=== PATIENT | female | born 1965 | race Caucasian/White ===

== ENCOUNTER 2016-03-25 13:59 | Emergency (ER) | payer MEDICAID ==
--- NOTE | 2016-03-25 15:15 | ER Document Report ---
ED General - General Chief Complaint: Abdominal Pain Stated Complaint: ABDOMINAL PAIN Time seen by provider: 14:50 Mode of Arrival: Ambulatory Information source: Patient Notes: 50-year-old female complains about 2 week history of bilateral lower abdominal pain left greater than right associated with nausea and poor appetite. She denies fever, chills, cough worse than baseline, shortness of breath worse than baseline, diarrhea, constipation, dysuria, vaginal bleeding or discharge. She reports he's had rectal bleeding intermittently for the past year and is having some emesis is not worse than what she usually has. He denies hematemesis or melena. She denies chest pain, back pain, or syncope. She has chronic swelling the lower extremities from lymphedema which she says is not worse than normal. He reports chronically using oxygen 3-1/2-4 L at home for COPD, asthma , congestive heart failure and says her breathing symptoms are not worse than her baseline. Physical Exam: General: Alert, appears well. HEENT: Normocephalic. Atraumatic. PERRLA. Extraocular movements intact. Oropharynx clear. Neck: Supple. Non-tender. Respiratory: No respiratory distress. Clear and equal breath sounds bilaterally. Oxygen saturation varies from 83-88% on 4 L as a cannula patient reports is her baseline Cardiovascular: Tachycardic and irregular the M a nondisplaced Abdominal: Normal Inspection. Soft, mild left lower quadrant tenderness no guarding rebound rigidity or referred pain no distension. Patient has erythema over her pannus in the midline and left lower abdomen which seems to correspond the patient's complaint of pain Normal Bowel Sounds. Back: Non-tender. No deformity or step off. Extremities: Moves all four extremities. Upper extremities: Normal inspection. Non-tender. Normal color. Normal ROM. Normal temperature. Lower extremities have 4+ edema from thighs down. Patient has 2+ dorsalis pedis and Posterior tibial pulses Neurological: Speech clear mentation normal glass mechanic strength 5 out of 5 equal both upper extremities Psychological: Normal affect. Normal Mood. Skin: Warm. Dry. Normal color. TRAVEL OUTSIDE OF THE [place] IN LAST 30 DAYS: No - Related Data Allergies/Adverse Reactions: budesonide [From Pulmicort] Allergy (Unknown, Verified 03/25/16 14:13) amoxicillin trihydrate [From Augmentin] Allergy (Verified 03/25/16 14:13) brompheniramine maleate [From Dimetapp] Allergy (Verified 03/25/16 14:13) dextromethorphan HBr [From Dimetapp] Allergy (Verified 03/25/16 14:13) phenylpropanolamine HCl [From Dimetapp] Allergy (Verified 03/25/16 14:13) Potassium Clavulanate * [From Augmentin] Allergy (Verified 03/25/16 14:13) pseudoephedrine HCl [From Dimetapp] Allergy (Verified 03/25/16 14:13) tetracycline [Tetracycline] Allergy (Verified 03/25/16 14:13) epinephrine [From Primatene Mist] Adverse Reaction (Verified 03/25/16 14:13) Difficulty breathing Past Medical History - Social History Smoking Status: Never Smoker Chew tobacco use (# tins/day): No Frequency of alcohol use: None Drug Abuse: None Family History: Reviewed & Not Pertinent Patient has suicidal ideation: No Patient has homicidal ideation: No - Past Medical History Cardiac Medical History: Reports: Hx Atrial Fibrillation, Hx Coronary Artery Disease, Hx Hypercholesterolemia, Hx Hypertension Denies: Hx Heart Attack Pulmonary Medical History: Reports: Hx Asthma, Hx COPD Denies: Hx Bronchitis, Hx Pneumonia, Hx Tuberculosis Neurological Medical History: Reports: Hx Migraine. Denies: Hx Cerebrovascular Accident, Hx Seizures Renal/ Medical History: Denies: Hx Peritoneal Dialysis Musculoskeltal Medical History: Reports Hx Arthritis Psychiatric Medical History: Reports: Hx Depression Past Surgical History: Reports: Hx Section, Hx Gynecologic Surgery - Endometrial ablation. Denies: Hx Hysterectomy - Immunizations Immunizations up to date: Yes Hx Diphtheria, Pertussis, Tetanus Vaccination: No Hx Pneumococcal Vaccination: 10/15/12 Review of Systems - Review of Systems Constitutional: denies: Chills, Fever EENT: denies: Ear pain, Throat pain Cardiovascular: denies: Chest pain, Syncope Respiratory: Short of breath - At baseline. denies: Cough Gastrointestinal: See HPI Genitourinary: See HPI Female Genitourinary: See HPI Musculoskeletal: denies: Back pain Skin: denies: Rash Hematologic/Lymphatic: denies: Swollen glands Neurological/Psychological: denies: Weakness, Numbness Physical Exam - Vital signs Vitals: Resp Pulse Ox 18 90 L 03/25/16 14:47 03/25/16 14:47 Course - Re-evaluation Re-evalutation: 03/25/16 18:10 Reevaluation of patient shows her to again have minimal discomfort along her past but no findings on abdominal exam suggestive of intra-abdominal pathology. CT abdomen pelvis was also read as showing findings consistent with a August this. She has no fever and is nontoxic in appearance or believe can be safely treated as an outpatient. He'll be discharged clindamycin 03/25/16 18:13 Patient is noted to have a markedly elevated CO2 but a little believe that is direct marketing representative her her chronic hypercapnic respiratory failure. She is oxygenating well on her baseline nasal cannula here and is awake and alert and this does not warrant admission. - Vital Signs Vital signs: Temp Pulse Resp BP Pulse Ox 97.8 F 111 H 24 H 151/101 H 84 L 03/25/16 15:02 03/25/16 15:02 03/25/16 15:02 03/25/16 15:02 03/25/16 16:00 - Laboratory Result Diagrams: 03/25/16 15:15 03/25/16 15:38 Laboratory results interpreted by me: 03/25/16 03/25/16 15:15 15:38 WBC 11.5 H Hgb 9.8 L Hct 33.4 L MCV 75 L MCH 22.1 L MCHC 29.4 L RDW 18.4 H Seg Neutrophils % 84.6 H Lymphocytes % 7.1 L Absolute Neutrophils 9.7 H Chloride 88 L Carbon Dioxide 47 H* Creatine Kinase < 20 L Albumin 3.1 L Urinalysis results reviewed - Diagnostic Test Radiology reviewed: Image reviewed, Reports reviewed - EKG Interpretation by Me Additional EKG results interpreted by me: 03/25/16 18:09 EKG reviewed by myself shows atrial fibrillation ventricular 112 with no acute changes Discharge - Discharge Clinical Impression: Panniculitis Condition: Stable Disposition: HOME, SELF-CARE Additional Instructions: Cellulitis You have an infection of your skin and underlying soft tissues called cellulitis. This is due to bacteria, which can enter through any break in the skin, or even through an irritated hair follicle. Untreated, cellulitis will usually worsen. Antibiotics are required. Usually, warm packs or warm soaks, and elevation of the infected area are recommended. You should start getting better within 24 to 36 hours. Most infections respond quickly to the right medication. Follow-up care is important, however, to check for abscess (boil) formation, unsuspected foreign body, or resistant infection. If you develop fever, chills, or if the area of infection is becoming rapidly more swollen or painful, call the doctor at once. Prescriptions: Clindamycin HCl 300 mg PO QID #40 capsule Referrals: BENY ESQUIVEL MD [Primary Care Provider] - Follow up in 1 week
[2016-03-25 15:19] LABS: APPEARANCE,URINE CLEAR; BILIRUBIN,URINE NEGATIVE (NEGATIVE); GLUCOSE, URINE NEGATIVE (NEGATIVE); KETONES,URINE NEGATIVE (NEGATIVE); LEUKOCYTE ESTERASE,URINE NEGATIVE (NEGATIVE); NITRITE,URINE NEGATIVE (NEGATIVE); PROTEIN,URINE NEGATIVE (NEGATIVE); URINE SPECIFIC GRAVITY 1.005; UROBILINOGEN,URINE NEGATIVE mg/dL (<2.0)
[2016-03-25 15:27] LABS: ABSOLUTE BASOPHILS # (AUTO) 0.1 10^3/uL (0.0-0.2); ABSOLUTE EOSINOPHILS # (AUTO) 0.1 10^3/uL (0.0-0.6); ABSOLUTE LYMPHOCYTES (AUTO) 0.8 10^3/uL (0.5-4.7); ABSOLUTE MONOCYTES (AUTO) 0.8 10^3/uL (0.1-1.4); ABSOLUTE NEUT (AUTO) 9.7 10^3/uL (1.7-8.2); BASOPHILS % (AUTO) 0.7 % (0-2); HEMATOCRIT 33.4 % (36.0-47.0); HEMOGLOBIN 9.8 g/dL (12.0-15.5); LYMPHOCYTES % (AUTO) 7.1 % (13-45); MEAN CORPUSCULAR HEMOGLOBIN 22.1 pg (27.0-33.4); MEAN CORPUSCULAR HGB CONC 29.4 g/dL (32.0-36.0); MEAN CORPUSCULAR VOLUME 75 fl (80-97); MONOCYTES % (AUTO) 6.6 % (3-13); RED BLOOD COUNT 4.44 10^6/uL (3.72-5.28); RED CELL DISTRIBUTION WIDTH 18.4 % (11.5-14.0); SEGMENTED NEUTROPHILS % (AUTO) 84.6 % (42-78); WHITE BLOOD COUNT 11.5 10^3/uL (4.0-10.5)
[2016-03-25 16:10] LABS: ALANINE AMINOTRANSFERASE 35 U/L (9-52); ALBUMIN 3.1 g/dL (3.5-5.0); ALKALINE PHOSPHATASE 98 U/L (38-126); ASPARTATE AMINO TRANSFERASE 28 U/L (14-36); BILIRUBIN,TOTAL 0.6 mg/dL (0.2-1.3); BLOOD UREA NITROGEN 17 mg/dL (7-20); CALCIUM 8.4 mg/dL (8.4-10.2); CHLORIDE 88 mmol/L (98-107); CREATININE RESULT 0.52 mg/dL (0.52-1.25); GLUCOSE 103 mg/dL (75-110); LIPASE 64.2 U/L (23-300); POTASSIUM 4.2 mmol/L (3.6-5.0); SODIUM 141.6 mmol/L (137-145); TOTAL PROTEIN 6.9 g/dL (6.3-8.2)
[2016-03-25 16:16] LABS: ANION GAP 7 (5-19); CREATINE KINASE < 20 U/L (30-135)
[2016-03-25 16:22] LABS: CREATINE KINASE MB 0.29 ng/mL (<4.55)
[2016-03-25 16:23] LABS: CARBON DIOXIDE 47 mmol/L (22-30)
[2016-03-25 16:24] LABS: TROPONIN I < 0.012 ng/mL
--- NOTE | 2016-03-25 17:16 | EKG REPORT ---
SEVERITY:- ABNORMAL ECG - ATRIAL FIBRILLATION, V-RATE 83-127 BORDERLINE T ABNORMALITIES, ANT-LAT LEADS : Confirmed by: River Maciel MD 25-Mar-2016 17:15:40
[2016-03-25 21:43] VITALS: BP 121/89
== END 2016-03-25 22:17 | disposition home or self-care (01) ==
LOC: ER 13:59
DX: M79.3 Panniculitis, unspecified (principal); R10.30 Lower abdominal pain, unspecified; R11.0 Nausea; R06.02 Shortness of breath; R00.0 Tachycardia, unspecified; I89.0 Lymphedema, not elsewhere classified; J44.9 Chronic obstructive pulmonary disease, unspecified; I48.91 Unspecified atrial fibrillation; I25.10 Atherosclerotic heart disease of native coronary artery without angina pectoris; E78.00 Pure hypercholesterolemia, unspecified; I10 Essential (primary) hypertension; J45.909 Unspecified asthma, uncomplicated; Z99.81 Dependence on supplemental oxygen; Z88.0 Allergy status to penicillin
CPT/HCPCS: 36415; 71010; 74177; 80053; 81001; 82272; 82550; 82553; 83605; 83690; 84484; 85025; 87086; 87088; 87186; 93005; 93010; 99285

== ENCOUNTER 2016-05-20 05:40 | Emergency (ER) | payer MEDICAID ==
[2016-05-20] MEDS ORDERED: IBUPROFEN 800 MG TABLET PO ONE (06:15)
--- NOTE | 2016-05-20 07:14 | ER Document Report ---
ED General - General Chief Complaint: Fall Injury Stated Complaint: FALL,LEG PAIN Mode of Arrival: Medic Information source: Patient Notes: 50-year-old female presents with complaints of right krishnan pain after slip and fall. Patient notes she was having difficulty putting weight on her krishnan. Denies any numbness weakness loss of bowel or bladder function. Denies any back pain or any other injuries TRAVEL OUTSIDE OF THE [place] IN LAST 30 DAYS: No - HPI Onset: Just prior to arrival Onset/Duration: Sudden Quality of pain: Achy Severity: Mild Pain Level: 1 Associated symptoms: None Exacerbated by: Walking Relieved by: Denies Similar symptoms previously: No Recently seen / treated by doctor: No - Related Data Allergies/Adverse Reactions: budesonide [From Pulmicort] Allergy (Unknown, Verified 03/25/16 14:13) amoxicillin trihydrate [From Augmentin] Allergy (Verified 03/25/16 14:13) brompheniramine maleate [From Dimetapp] Allergy (Verified 03/25/16 14:13) dextromethorphan HBr [From Dimetapp] Allergy (Verified 03/25/16 14:13) phenylpropanolamine HCl [From Dimetapp] Allergy (Verified 03/25/16 14:13) Potassium Clavulanate * [From Augmentin] Allergy (Verified 03/25/16 14:13) pseudoephedrine HCl [From Dimetapp] Allergy (Verified 03/25/16 14:13) tetracycline [Tetracycline] Allergy (Verified 03/25/16 14:13) epinephrine [From Primatene Mist] Adverse Reaction (Verified 03/25/16 14:13) Difficulty breathing Past Medical History - Social History Smoking Status: Never Smoker Cigarette use (# per day): No Chew tobacco use (# tins/day): No Smoking Education Provided: No Family History: Reviewed & Not Pertinent Patient has suicidal ideation: No Patient has homicidal ideation: No - Past Medical History Cardiac Medical History: Reports: Hx Atrial Fibrillation, Hx Coronary Artery Disease, Hx Hypercholesterolemia, Hx Hypertension Denies: Hx Heart Attack Pulmonary Medical History: Reports: Hx Asthma, Hx COPD Denies: Hx Bronchitis, Hx Pneumonia, Hx Tuberculosis Neurological Medical History: Reports: Hx Migraine. Denies: Hx Cerebrovascular Accident, Hx Seizures Renal/ Medical History: Denies: Hx Peritoneal Dialysis Musculoskeltal Medical History: Reports Hx Arthritis Psychiatric Medical History: Reports: Hx Depression Past Surgical History: Reports: Hx Section, Hx Gynecologic Surgery - Endometrial ablation. Denies: Hx Hysterectomy - Immunizations Immunizations up to date: Yes Hx Diphtheria, Pertussis, Tetanus Vaccination: No Hx Pneumococcal Vaccination: 10/15/12 Review of Systems - Review of Systems Notes: REVIEW OF SYSTEMS: CONSTITUTIONAL : Denies fever, chills, or sweats. Denies recent illness. EENT: Denies eye, ear, throat, or mouth pain or symptoms. Denies nasal or sinus congestion or discharge. Denies throat, tongue, or mouth swelling or difficulty swallowing. CARDIOVASCULAR: Denies chest pain. Denies palpitations or racing or irregular heart beat. Denies ankle edema. RESPIRATORY: Denies cough, cold, or chest congestion. Denies shortness of breath, difficulty breathing, or wheezing. GASTROINTESTINAL: Denies abdominal pain or distention. Denies nausea, vomiting , or diarrhea. Denies blood in vomitus, stools, or per rectum. Denies black, tarry stools. Denies constipation. GENITOURINARY: Denies difficulty urinating, painful urination, burning, frequency, blood in urine, or discharge. FEMALE GENITOURINARY: Denies vaginal bleeding, heavy or abnormal periods, irregular periods. Denies vaginal discharge or odor. MUSCULOSKELETAL: Right leg pain SKIN: Denies rash, lesions or sores. HEMATOLOGIC : Denies easy bruising or bleeding. LYMPHATIC: Denies swollen, enlarged glands. NEUROLOGICAL: Denies confusion or altered mental status. Denies passing out or loss of consciousness. Denies dizziness or lightheadedness. Denies headache. Denies weakness or paralysis or loss of use of either side. Denies problems with gait or speech. Denies sensory loss, numbness, or tingling. Denies seizures. PSYCHIATRIC: Denies anxiety or stress. Denies depression, suicidal ideation, or homicidal ideation. ALL OTHER SYSTEMS REVIEWED AND NEGATIVE. Dictation was performed using [employer] voice recognition software PHYSICAL EXAMINATION: GENERAL: Obese female HEAD: Atraumatic, normocephalic. EYES: Pupils equal round and reactive to light, extraocular movements intact, conjunctiva are normal. ENT: Nares patent, oropharynx clear without exudates. Moist mucous membranes. NECK: Normal range of motion, supple without lymphadenopathy LUNGS: Breath sounds clear to auscultation bilaterally and equal. No wheezes rales or rhonchi. HEART: Regular rate and rhythm without murmurs ABDOMEN: Soft, nontender, nondistended abdomen. No guarding, no rebound. No masses appreciated. Female : deferred Musculoskeletal: Bilateral +4 pitting edema chronic, no obvious deformity no erythema no warmth no bruising NEUROLOGICAL: Cranial nerves grossly intact. Normal speech, normal gait. Normal sensory, motor exams PSYCH: Normal mood, normal affect. SKIN: Warm, Dry, normal turgor, no rashes or lesions noted. Physical Exam - Vital signs Vitals: Temp Pulse Resp BP Pulse Ox 98.1 F 64 21 H 145/114 H 97 05/20/16 05:54 05/20/16 05:54 05/20/16 05:54 05/20/16 05:54 05/20/16 05:54 Course - Re-evaluation Re-evalutation: 05/20/16 07:17 X-ray was performed acute abnormality was noted, patient appears well 05/20/16 07:43 X-ray noted abnormality patient will be discharged home with pain control is otherwise stable given that this is a mechanical fall After performing a Medical Screening Examination, I estimate there is LOW risk for INTRACRANIAL HEMORRHAGE, UNSTABLE SPINE FRACTURE, CENTRAL CORD SYNDROME, CAUDA EQUINA, THORACIC AORTIC DISSECTION, PNEUMOTHORAX, PERFORATED BOWEL, RUPTURED ABDOMINAL AORTIC ANEURYSM, ACUTE TENDON RUPTURE, COMPARTMENT SYNDROME, or OPEN FRACTURE, thus I consider the discharge disposition reasonable. Also, there is no evidence or peritonitis, sepsis, or toxicity. The patient and I have discussed the diagnosis and risks, and we agree with discharging home to follow-up with their primary doctor with the understanding that symptoms and presentations can change. We also discussed returning to the Emergency Department immediately if new or worsening symptoms occur. We have discussed the symptoms which are most concerning (e.g., bloody stool, fever, changing or worsening pain, vomiting) that necessitate immediate return. - Vital Signs Vital signs: Temp Pulse Resp BP Pulse Ox 98.1 F 64 21 H 145/114 H 100 05/20/16 05:54 05/20/16 05:54 05/20/16 06:00 05/20/16 05:54 05/20/16 06:00 - Diagnostic Test Radiology reviewed: Image reviewed, Reports reviewed Discharge - Discharge Clinical Impression: Right leg pain Fall Qualifiers: Encounter type: initial encounter Qualified Code(s): W19.XXXA - Unspecified fall, initial encounter Condition: Stable Disposition: HOME, SELF-CARE Instructions: Contusion ([facility]) Prescriptions: Hydrocodone/Acetaminophen [[place] 5-325 mg Tablet] 1 tab PO Q6 #8 tablet Referrals: BENY ESQUIVEL MD [Primary Care Provider] - Follow up in 3-5 days
[2016-05-20 10:35] VITALS: BP 129/70
== END 2016-05-20 10:31 | disposition home or self-care (01) ==
LOC: ER 05:40
DX: M79.661 Pain in right lower leg (principal); W01.0XXA Fall on same level from slipping, tripping and stumbling without subsequent striking against object, initial encounter; I25.10 Atherosclerotic heart disease of native coronary artery without angina pectoris; I10 Essential (primary) hypertension; R60.9 Edema, unspecified; J44.9 Chronic obstructive pulmonary disease, unspecified; E66.9 Obesity, unspecified; Z68.44 Body mass index [BMI] 60.0-69.9, adult; Z88.8 Allergy status to other drugs, medicaments and biological substances; Z88.0 Allergy status to penicillin; Z88.1 Allergy status to other antibiotic agents
CPT/HCPCS: 99283; 73590; J3490

== ENCOUNTER 2016-05-31 16:38 | Inpatient (IN) | payer MEDICAID ==
--- NOTE | 2016-05-31 17:06 | ER Document Report ---
ED Respiratory Problem - General Chief Complaint: Weakness, short of breath Stated Complaint: DIFFICULTY BREATHING Mode of Arrival: Medic Information source: Patient, Emergency Med Personnel TRAVEL OUTSIDE OF THE [place] IN LAST 30 DAYS: No - HPI Patient complains to provider of: CHF, COPD, Cough, Short of breath Onset: Other - 2-3 days Duration: Worse/persistent Context: Hx CHF, Hx COPD Short of Breath: Moderate Chest pain/discomfort: Tightness Cough: Nonproductive Associated symptoms: Ankle/leg swelling, Congestion, Cough, Difficulty breathing , Extertional dyspnea, Short of breath Similar symptoms previously: Yes Recently seen / treated by doctor: Yes Notes: Patient is a 50-year-old female who presents to the emergency room complaining of difficulty breathing that's been worsening over the past 2-3 days, she reports increased somnolence, and frequent falls throughout the last month as well, she denies any pain from her falls, she does report about 20 pound weight gain over the past month due to worsening lymphedema in her lower extremities, states that when she had a fall she suffered a skin tear to her right lower extremity and therefore has been unable to wear her compression stockings, she denies any chest pain, she denies a cough, hurts a history of CHF and COPD, worse 3 and after 4 L of oxygen at home - Related Data Allergies/Adverse Reactions: budesonide [From Pulmicort] Allergy (Unknown, Verified 03/25/16 14:13) amoxicillin trihydrate [From Augmentin] Allergy (Verified 03/25/16 14:13) brompheniramine maleate [From Dimetapp] Allergy (Verified 03/25/16 14:13) dextromethorphan HBr [From Dimetapp] Allergy (Verified 03/25/16 14:13) phenylpropanolamine HCl [From Dimetapp] Allergy (Verified 03/25/16 14:13) Potassium Clavulanate * [From Augmentin] Allergy (Verified 03/25/16 14:13) pseudoephedrine HCl [From Dimetapp] Allergy (Verified 03/25/16 14:13) tetracycline [Tetracycline] Allergy (Verified 03/25/16 14:13) epinephrine [From Primatene Mist] Adverse Reaction (Verified 03/25/16 14:13) Difficulty breathing Past Medical History - General Information source: Patient - Social History Smoking Status: Former Smoker Family History: Reviewed & Not Pertinent - Past Medical History Cardiac Medical History: Reports: Hx Atrial Fibrillation, Hx Coronary Artery Disease, Hx Hypercholesterolemia, Hx Hypertension Denies: Hx Heart Attack Pulmonary Medical History: Reports: Hx Asthma, Hx COPD Denies: Hx Bronchitis, Hx Pneumonia, Hx Tuberculosis Neurological Medical History: Reports: Hx Migraine. Denies: Hx Cerebrovascular Accident, Hx Seizures Renal/ Medical History: Denies: Hx Peritoneal Dialysis Musculoskeltal Medical History: Reports Hx Arthritis Psychiatric Medical History: Reports: Hx Depression Past Surgical History: Reports: Hx Section, Hx Gynecologic Surgery - Endometrial ablation. Denies: Hx Hysterectomy - Immunizations Immunizations up to date: Yes Hx Diphtheria, Pertussis, Tetanus Vaccination: No Hx Pneumococcal Vaccination: 10/15/12 Review of Systems - Review of Systems Constitutional: No symptoms reported EENT: No symptoms reported Cardiovascular: Edema Respiratory: See HPI Gastrointestinal: No symptoms reported Genitourinary: No symptoms reported Female Genitourinary: No symptoms reported Musculoskeletal: No symptoms reported Skin: See HPI Hematologic/Lymphatic: No symptoms reported Neurological/Psychological: Other - Somnolence -: Yes All other systems reviewed and negative Physical Exam - Vital signs Vitals: Temp Pulse BP Pulse Ox 97.9 F 115 H 113/73 92 05/31/16 16:53 05/31/16 16:53 05/31/16 16:53 05/31/16 16:53 - General General appearance: Alert In distress: Mild - HEENT Head: Normocephalic Eyes: Normal Conjunctiva: Normal Extraocular movements intact: Yes Eyelashes: Normal Pupils: PERRL - Respiratory Respiratory status: Tachypnea Chest status: Nontender Breath sounds: Nonproductive cough, Wheezing Chest palpation: Normal - Cardiovascular Rhythm: Irregularly irregular, Tachycardia - Abdominal Inspection: Fresh incision Distension: No distension Bowel sounds: Normal Tenderness: Nontender Organomegaly: No organomegaly - Back Back: Normal - Extremities General upper extremity: Normal inspection General lower extremity: Edema - Bilateral lower extremities with significant lymphedema and erythema - Neurological Neuro grossly intact: Yes Cognition: Normal Orientation: AAOx4 [place] Coma Scale Eye Opening: Spontaneous [place] Coma Scale Verbal: Oriented [place] Coma Scale Motor: Obeys Commands [place] Coma Scale Total: 15 - Psychological Associated symptoms: Normal affect, Normal mood - Skin Skin Temperature: Warm Skin Moisture: Dry Skin Color: Normal Course - Re-evaluation Re-evalutation: 05/31/16 19:46 Patient with anemia, hypercapnic respiratory failure and urinary tract infection , started on antibiotics, placed on BiPAP and discussed with the hospitalist who agrees to admit for further evaluation and treatment - Vital Signs Vital signs: Temp Pulse Resp BP Pulse Ox 97.9 F 115 H 24 H 115/85 95 05/31/16 16:53 05/31/16 16:53 05/31/16 19:01 05/31/16 19:01 05/31/16 19:01 - Laboratory Result Diagrams: 05/31/16 18:40 05/31/16 18:40 Laboratory results interpreted by me: 05/31/16 05/31/16 05/31/16 18:25 18:40 18:40 Hgb 8.8 L Hct 30.2 L MCV 74 L MCH 21.5 L MCHC 29.2 L RDW 17.8 H Seg Neutrophils % 79.2 H Lymphocytes % 9.6 L VBG pH VBG pCO2 VBG HCO3 Chloride 89 L Carbon Dioxide 43 H* Glucose 112 H Creatine Kinase < 20 L NT-Pro-B Natriuret Pep Albumin 3.4 L Urine Protein 30 H Urine Nitrite POSITIVE H Urine Urobilinogen 2.0 H Ur Leukocyte Esterase MODERATE H 05/31/16 05/31/16 18:40 19:14 Hgb Hct MCV MCH MCHC RDW Seg Neutrophils % Lymphocytes % VBG pH 7.23 L VBG pCO2 124.5 H* VBG HCO3 51.3 H Chloride Carbon Dioxide Glucose Creatine Kinase NT-Pro-B Natriuret Pep 952 H Albumin Urine Protein Urine Nitrite Urine Urobilinogen Ur Leukocyte Esterase - Diagnostic Test Radiology reviewed: Image reviewed, Reports reviewed - EKG Interpretation by Me Rate: Tachycardia Rhythm: A.Fib - Transfer of Care Care transferred to following provider: Dr. Lynn Critical Care Note - Critical Care Note Total time excluding time spent on procedures (mins): 30 Comments: Patient with tachycardia, atrial fibrillation, hypercapnic respiratory distress , placed on BiPAP and admitted for further evaluation and treatment Discharge - Discharge Clinical Impression: Acute respiratory failure with hypoxia and hypercarbia Atrial fibrillation Qualifiers: Atrial fibrillation type: unspecified Qualified Code(s): I48.91 - Unspecified atrial fibrillation Anemia Qualifiers: Anemia type: unspecified type Qualified Code(s): D64.9 - Anemia, unspecified UTI (urinary tract infection) Qualifiers: Urinary tract infection type: site unspecified Hematuria presence: without hematuria Qualified Code(s): N39.0 - Urinary tract infection, site not specified Condition: Serious Disposition: ADMITTED INPATIENT Admitting Provider: Hospitalist Unit Admitted: IMCU Referrals: BENY ESQUIVEL MD [Primary Care Provider] - Follow up as needed
[2016-05-31 18:45] LABS: APPEARANCE,URINE SLIGHTLY-CLOUDY; BILIRUBIN,URINE NEGATIVE (NEGATIVE); GLUCOSE, URINE NEGATIVE (NEGATIVE); KETONES,URINE NEGATIVE (NEGATIVE); LEUKOCYTE ESTERASE,URINE MODERATE (NEGATIVE); NITRITE,URINE POSITIVE (NEGATIVE); PROTEIN,URINE 30 mg/dL (NEGATIVE); URINE SPECIFIC GRAVITY 1.013
[2016-05-31] MEDS ORDERED: IPRATROPIUM/ALBUTEROL 0.5-2.5 MG/3 ML AMPUL NEB ONE (18:53)
[2016-05-31 18:54] LABS: ABSOLUTE EOSINOPHILS # (AUTO) 0.1 10^3/uL (0.0-0.6); ABSOLUTE NEUT (AUTO) 7.9 10^3/uL (1.7-8.2); BASOPHILS % (AUTO) 0.3 % (0-2); EOSINOPHILS % (AUTO) 0.7 % (0-6); HEMATOCRIT 30.2 % (36.0-47.0); HEMOGLOBIN 8.8 g/dL (12.0-15.5); HGB HCT DIFFERENCE -3.8; LYMPHOCYTES % (AUTO) 9.6 % (13-45); MEAN CORPUSCULAR HEMOGLOBIN 21.5 pg (27.0-33.4); MEAN CORPUSCULAR HGB CONC 29.2 g/dL (32.0-36.0); MEAN CORPUSCULAR VOLUME 74 fl (80-97); MONOCYTES % (AUTO) 10.2 % (3-13); RED CELL DISTRIBUTION WIDTH 17.8 % (11.5-14.0); SEGMENTED NEUTROPHILS % (AUTO) 79.2 % (42-78); WHITE BLOOD COUNT 9.9 10^3/uL (4.0-10.5)
--- NOTE | 2016-05-31 19:02 | EKG REPORT ---
SEVERITY:- ABNORMAL ECG - ATRIAL FIBRILLATION, V-RATE 82-138 : Confirmed by: Yulissa Mondragon 31-May-2016 19:00:55
[2016-05-31 19:07] LABS: ALANINE AMINOTRANSFERASE 30 U/L (9-52); ALBUMIN 3.4 g/dL (3.5-5.0); ALKALINE PHOSPHATASE 125 U/L (38-126); ASPARTATE AMINO TRANSFERASE 21 U/L (14-36); BILIRUBIN,DIRECT 0.4 mg/dL (0.0-0.4); BILIRUBIN,TOTAL 0.6 mg/dL (0.2-1.3); BLOOD UREA NITROGEN 17 mg/dL (7-20); CALCIUM 8.8 mg/dL (8.4-10.2); CHLORIDE 89 mmol/L (98-107); GLUCOSE 112 mg/dL (75-110); POTASSIUM 4.6 mmol/L (3.6-5.0); SODIUM 140.6 mmol/L (137-145); TOTAL PROTEIN 7.1 g/dL (6.3-8.2)
[2016-05-31 19:15] LABS: ANION GAP 9 (5-19); CREATINE KINASE < 20 U/L (30-135)
[2016-05-31 19:17] LABS: CARBON DIOXIDE 43 mmol/L (22-30)
[2016-05-31 19:21] LABS: CREATINE KINASE MB < 0.22 ng/mL (<4.55); TROPONIN I < 0.012 ng/mL
[2016-05-31 19:23] LABS: VENOUS BLOOD BASE EXCESS 19.1 mmol/L; VENOUS BLOOD HCO3 51.3 mmol/L (20-32); VENOUS BLOOD PH 7.23 (7.30-7.42)
[2016-05-31] MEDS ORDERED: CEFTRIAXONE INJ 1000 MG VIAL IV ONE (19:23)
[2016-05-31 19:25] LABS: VENOUS BLOOD PCO2 124.5 mmHg (35-63)
[2016-05-31] MEDS ORDERED: ASPIRIN 325 MG TABLET PO PRN ×2 (19:27→19:38)
[2016-05-31] MEDS ORDERED: LACTULOSE SYRUP 20 GM/30 ML UDCUP PO ONE (19:29)
[2016-05-31] MEDS ORDERED: MAG HYDROX/AL HYDROX/SIMETH SUSP 30 ML UDCUP PO PRN (19:30)
[2016-05-31] MEDS ORDERED: (PENDING PHARMACY ID) (Diltiazem Hcl [Diltiazem 24hr Cd] 180 MG) PO SCH (19:30)
[2016-05-31] MEDS ORDERED: ONDANSETRON HCL INJ/PF 4 MG/2 ML SDV IV PRN (19:30)
[2016-05-31 20:01] LABS: URINE BARBITURATES SCREEN NEGATIVE; URINE METHADONE SCREEN NEGATIVE; URINE OPIATES LOW NEGATIVE; URINE PHENCYCLIDINE SCREEN NEGATIVE
[2016-05-31] MEDS: IPRATROPIUM/ALBUTEROL 0.5-2.5 MG/3 ML AMPUL NEB SCH (20:48)
[2016-05-31 21:19] LABS: ARTERIAL BLOOD BASE EXCESS 17.5 mmol/L; ARTERIAL BLOOD O2 SATURATION 96.2 % (94-98)
[2016-05-31] MEDS: HEPARIN SOD (PORCINE) 5,000 UNIT/ML 1 ML SYRINGE SUBCUT SCH (21:58)
[2016-05-31] MEDS: DILTIAZEM HCL 180 MG CAPSULE.CR PO SCH (21:58)
[2016-05-31] MEDS: METOPROLOL SUCCINATE 25 MG TAB.SR.24H PO SCH (21:58)
[2016-05-31] MEDS: FLUTICASONE/SALMETEROL DISKUS 250-50 MCG/DOSE IH SCH (21:58)
[2016-06-01] MEDS: ACETAMINOPHEN 325 MG TABLET PO PRN ×2 (01:37→06:16)
--- NOTE | 2016-06-01 03:02 | PDOC H&P ---
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 Who is had several days of difficulty walking and staying awake prompting to seek evaluation emergency room where she's found to have partially compensated hypercapnic respiratory failure with a PCO2 of 88 after 2 hours on BiPAP. She denies chest pain complains of hunger and is referred to the hospitalist for admission. Past Medical History Cardiac Medical History: Reports: Atrial Fibrillation, Coronary Artery Disease, Hyperlipidema, Hypertension Denies: Myocardial Infarction Pulmonary Medical History: Reports: Asthma, Chronic Obstructive Pulmonary Disease (COPD), Respiratory Failure, Sleep Apnea Denies: Bronchitis, Pneumonia, Tuberculosis Neurological Medical History: Reports: Migraine Denies: Seizures Musculoskeltal Medical History: Reports: Arthritis Psychiatric Medical History: Reports: Depression Hematology: Reports: Anemia Past Surgical History Past Surgical History: Reports: Section Denies: Hysterectomy Social History Information Source: Patient, [facility] Records Lives with: Family Smoking Status: Former Smoker Frequency of Alcohol Use: None Hx Recreational Drug Use: No Drugs: None Hx Prescription Drug Abuse: No Family History Family History: Hypertension Parental Family History Reviewed: Yes Children Family History Reviewed: Yes Sibling(s) Family History Reviewed.: Yes Medication/Allergy Allergies/Adverse Reactions: budesonide [From Pulmicort] Allergy (Unknown, Verified 06/01/16 00:36) amoxicillin trihydrate [From Augmentin] Allergy (Verified 06/01/16 00:36) brompheniramine maleate [From Dimetapp] Allergy (Verified 06/01/16 00:36) dextromethorphan HBr [From Dimetapp] Allergy (Verified 06/01/16 00:36) phenylpropanolamine HCl [From Dimetapp] Allergy (Verified 06/01/16 00:36) Potassium Clavulanate * [From Augmentin] Allergy (Verified 06/01/16 00:36) pseudoephedrine HCl [From Dimetapp] Allergy (Verified 06/01/16 00:36) tetracycline [Tetracycline] Allergy (Verified 06/01/16 00:36) epinephrine [From Primatene Mist] Adverse Reaction (Verified 06/01/16 00:36) Difficulty breathing Review of Systems ROS unobtainable: Due to mental status Physical Exam Vital Signs: Temp Pulse Resp BP Pulse Ox 98.3 F 115 H 19 104/80 98 06/01/16 02:00 05/31/16 16:53 06/01/16 02:01 06/01/16 02:01 06/01/16 02:01 Intake & Output 05/30/16 05/31/16 06/01/16 11:59 11:59 11:59 Output Total 425 Balance -425 General appearance: PRESENT: disheveled, morbidly obese, severe distress Head exam: PRESENT: atraumatic, normocephalic Eye exam: PRESENT: conjunctiva pink, EOMI, PERRLA. ABSENT: scleral icterus Ear exam: PRESENT: normal external ear exam Mouth exam: PRESENT: moist, tongue midline Neck exam: ABSENT: carotid bruit, JVD, lymphadenopathy, thyromegaly Respiratory exam: PRESENT: accessory muscle use, crackles, prolonged expiratory phas. ABSENT: rhonchi, stridor Cardiovascular exam: PRESENT: RRR. ABSENT: diastolic murmur, rubs, systolic murmur Pulses: PRESENT: normal dorsalis pedis pul GI/Abdominal exam: PRESENT: normal bowel sounds, soft. ABSENT: distended, guarding, mass, organolmegaly, rebound, tenderness Rectal exam: PRESENT: deferred Extremities exam: PRESENT: +2 edema. ABSENT: calf tenderness, clubbing, pedal edema Musculoskeletal exam: PRESENT: other - Immobilized by deconditioning and severe morbid obesity Neurological exam: PRESENT: altered, CN II-XII grossly intact Psychiatric exam: PRESENT: appropriate affect, normal mood. ABSENT: homicidal ideation, suicidal ideation Skin exam: PRESENT: warm. ABSENT: jaundice, petechiae, rash, skin tears Results Laboratory Results: 05/31/16 21:05 Carbonic Acid 2.67 H HCO3/H2CO3 Ratio 17:1 ABG pH 7.34 L ABG pCO2 88.7 H* ABG pO2 93.3 ABG HCO3 46.5 H ABG O2 Saturation 96.2 ABG Base Excess 17.5 FiO2 40% Impressions: Chest X-Ray 05/31/16 17:04 IMPRESSION: NO ACUTE CARDIOPULMONARY PROCESS. Assessment & Plan - Diagnosis (1) Acute respiratory failure with hypoxia and hypercarbia Is this a current diagnosis for this admission?: YesPlan: Acute on chronic respiratory failure, complicated by severe morbid obesity, she' ll be admitted to a monitored bed with continued BiPAP avoidance of sedation or anxiolytics consideration of pulmonology consult for future tracheostomy (2) Morbid obesity with BMI of 60.0-69.9, adult Is this a current diagnosis for this admission?: YesPlan: Please see #1 I'll evaluate a TSH otherwise dietitian counseling (3) Anemia Qualifiers: Anemia type: unspecified type Qualified Code(s): D64.9 - Anemia, unspecified Is this a current diagnosis for this admission?: YesPlan: Anemia workup pending (4) Atrial fibrillation Qualifiers: Atrial fibrillation type: unspecified Qualified Code(s): I48.91 - Unspecified atrial fibrillation Is this a current diagnosis for this admission?: YesPlan: Rate controlled avoidance of anticoagulation secondary to recurrent falls - Time Time Spent: 50 to 70 Minutes - Inpatient Certification Medical Necessity: Need Close Monitoring Due to Risk of Patient Decompensation
[2016-06-01 06:07] LABS: ABSOLUTE EOSINOPHILS # (AUTO) 0.1 10^3/uL (0.0-0.6); ABSOLUTE LYMPHOCYTES (AUTO) 0.9 10^3/uL (0.5-4.7); ABSOLUTE NEUT (AUTO) 6.1 10^3/uL (1.7-8.2); BASOPHILS % (AUTO) 0.4 % (0-2); EOSINOPHILS % (AUTO) 1.6 % (0-6); HEMOGLOBIN 8.9 g/dL (12.0-15.5); HGB HCT DIFFERENCE -2.3; LYMPHOCYTES % (AUTO) 11.2 % (13-45); MEAN CORPUSCULAR HEMOGLOBIN 22.4 pg (27.0-33.4); MEAN CORPUSCULAR HGB CONC 30.6 g/dL (32.0-36.0); MEAN CORPUSCULAR VOLUME 73 fl (80-97); MONOCYTES % (AUTO) 11.8 % (3-13); RED BLOOD COUNT 3.96 10^6/uL (3.72-5.28); RED CELL DISTRIBUTION WIDTH 17.8 % (11.5-14.0); WHITE BLOOD COUNT 8.1 10^3/uL (4.0-10.5)
[2016-06-01 06:30] LABS: BLOOD UREA NITROGEN 16 mg/dL (7-20); CALCIUM 8.7 mg/dL (8.4-10.2); CHLORIDE 90 mmol/L (98-107); CREATININE RESULT 0.55 mg/dL (0.52-1.25); GLUCOSE 93 mg/dL (75-110); POTASSIUM 4.6 mmol/L (3.6-5.0); SODIUM 139.7 mmol/L (137-145)
[2016-06-01] MEDS: HEPARIN SOD (PORCINE) 5,000 UNIT/ML 1 ML SYRINGE SUBCUT SCH ×3 (06:43→21:18)
[2016-06-01 06:53] LABS: ANION GAP 7 (5-19)
[2016-06-01 06:55] LABS: CARBON DIOXIDE 43 mmol/L (22-30)
[2016-06-01] MEDS: IPRATROPIUM/ALBUTEROL 0.5-2.5 MG/3 ML AMPUL NEB SCH ×3 (07:42→19:41)
[2016-06-01] MEDS: METOPROLOL SUCCINATE 25 MG TAB.SR.24H PO SCH ×2 (10:59→21:18)
[2016-06-01] MEDS: FLUOXETINE HCL 20 MG CAPSULE PO SCH (10:59)
[2016-06-01] MEDS: DILTIAZEM HCL 180 MG CAPSULE.CR PO SCH ×2 (11:00→21:18)
[2016-06-01] MEDS: DOCUSATE SODIUM 100 MG CAPSULE PO SCH ×2 (11:00→17:43)
[2016-06-01] MEDS: FLUTICASONE/SALMETEROL DISKUS 250-50 MCG/DOSE IH SCH ×2 (11:01→21:19)
[2016-06-01] MEDS: DIGOXIN 0.125 MG TABLET PO SCH (11:03)
[2016-06-01] MEDS ORDERED: LEVOFLOXACIN 250 MG/D5W RTU 250 MG/50 ML RTUPB IV ONE (16:30)
[2016-06-02] MEDS: ACETAMINOPHEN 325 MG TABLET PO PRN ×2 (03:50→21:26)
[2016-06-02] MEDS: HEPARIN SOD (PORCINE) 5,000 UNIT/ML 1 ML SYRINGE SUBCUT SCH ×3 (05:53→21:26)
[2016-06-02 06:06] LABS: ABSOLUTE EOSINOPHILS # (AUTO) 0.1 10^3/uL (0.0-0.6); ABSOLUTE LYMPHOCYTES (AUTO) 0.7 10^3/uL (0.5-4.7); ABSOLUTE MONOCYTES (AUTO) 0.9 10^3/uL (0.1-1.4); ABSOLUTE NEUT (AUTO) 6.9 10^3/uL (1.7-8.2); BASOPHILS % (AUTO) 0.5 % (0-2); HEMATOCRIT 28.4 % (36.0-47.0); HEMOGLOBIN 8.4 g/dL (12.0-15.5); HGB HCT DIFFERENCE -3.2; LYMPHOCYTES % (AUTO) 8.2 % (13-45); MEAN CORPUSCULAR HEMOGLOBIN 21.9 pg (27.0-33.4); MEAN CORPUSCULAR HGB CONC 29.7 g/dL (32.0-36.0); MEAN CORPUSCULAR VOLUME 74 fl (80-97); MONOCYTES % (AUTO) 10.1 % (3-13); RED BLOOD COUNT 3.86 10^6/uL (3.72-5.28); RED CELL DISTRIBUTION WIDTH 17.8 % (11.5-14.0); SEGMENTED NEUTROPHILS % (AUTO) 80.2 % (42-78); WHITE BLOOD COUNT 8.6 10^3/uL (4.0-10.5)
[2016-06-02 06:21] LABS: BLOOD UREA NITROGEN 18 mg/dL (7-20); CALCIUM 8.6 mg/dL (8.4-10.2); CHLORIDE 89 mmol/L (98-107); CREATININE RESULT 0.69 mg/dL (0.52-1.25); GLUCOSE 102 mg/dL (75-110); POTASSIUM 4.8 mmol/L (3.6-5.0); SODIUM 138.8 mmol/L (137-145)
[2016-06-02 06:29] LABS: ANION GAP 9 (5-19)
[2016-06-02 06:59] LABS: CARBON DIOXIDE 41 mmol/L (22-30)
[2016-06-02] MEDS: IPRATROPIUM/ALBUTEROL 0.5-2.5 MG/3 ML AMPUL NEB SCH ×3 (08:23→20:10)
[2016-06-02] MEDS: DILTIAZEM HCL 180 MG CAPSULE.CR PO SCH ×2 (09:33→21:27)
[2016-06-02] MEDS: FLUTICASONE/SALMETEROL DISKUS 250-50 MCG/DOSE IH SCH ×2 (09:33→21:27)
[2016-06-02] MEDS: METOPROLOL SUCCINATE 25 MG TAB.SR.24H PO SCH (09:34)
[2016-06-02] MEDS: FLUOXETINE HCL 20 MG CAPSULE PO SCH (09:35)
[2016-06-02] MEDS: DOCUSATE SODIUM 100 MG CAPSULE PO SCH ×2 (09:35→17:40)
[2016-06-02] MEDS: DIGOXIN 0.125 MG TABLET PO SCH (09:35)
[2016-06-02] MEDS ORDERED: LEVOFLOXACIN 250 MG/D5W RTU 250 MG/50 ML RTUPB IV SCH (10:00)
--- NOTE | 2016-06-02 15:52 | PDOC PROGRESS REPORT ---
Subjective Progress Note for:: 06/01/16 Subjective:: This is a follow-up visit for acute on chronic respiratory failure. The patient was seen earlier this afternoon at the bedside. At that time she had hardly any complaints. She stated that she was hungry. And that she was thirsty. She felt that her breathing was slightly better. She denied any chest pain. She denied any symptoms of dysuria. Physical Exam Vital Signs: Temp Pulse Resp BP Pulse Ox 98.3 F 71 11 L 118/64 91 L 06/01/16 12:09 06/01/16 14:21 06/01/16 14:21 06/01/16 12:09 06/01/16 14:21 Intake & Output 05/31/16 06/01/16 06/02/16 06:59 06:59 06:59 Output Total 425 Balance -425 General appearance: PRESENT: mild distress, morbidly obese, well-developed, well -nourished, other - She is currently on bilevel Pap Head exam: PRESENT: atraumatic, normocephalic Eye exam: PRESENT: conjunctiva pink Respiratory exam: PRESENT: clear to auscultation noel - Anteriorly. ABSENT: accessory muscle use, retraction, rhonchi - She is currently on bilevel Pap. It appears to be comfortable, tachypnea, wheezes Cardiovascular exam: PRESENT: RRR, systolic murmur - 1 out of 6 Pulses: PRESENT: other - Difficult to palpate secondary to edema GI/Abdominal exam: PRESENT: soft - Nontender nondistended. Obese abdomen Extremities exam: PRESENT: +2 edema - Lymphedema is present bilaterally 4+ pitting edema Neurological exam: PRESENT: awake - Patient is initially sleepy can easily be awakened. She doesn't doze off at some point during the interview. Skin exam: PRESENT: warm. ABSENT: cyanosis - Appearance of lymphedema with venous changes present. Results Laboratory Results: 06/01/16 05:48 06/01/16 05:48 05/31/16 06/01/16 06/01/16 21:05 05:48 05:48 WBC 8.1 RBC 3.96 Hgb 8.9 L Hct 29.0 L MCV 73 L MCH 22.4 L MCHC 30.6 L RDW 17.8 H Plt Count 321 Seg Neutrophils % 75.0 Lymphocytes % 11.2 L Monocytes % 11.8 Eosinophils % 1.6 Basophils % 0.4 Absolute Neutrophils 6.1 Absolute Lymphocytes 0.9 Absolute Monocytes 1.0 Absolute Eosinophils 0.1 Absolute Basophils 0.0 Carbonic Acid 2.67 H HCO3/H2CO3 Ratio 17:1 ABG pH 7.34 L ABG pCO2 88.7 H* ABG pO2 93.3 ABG HCO3 46.5 H ABG O2 Saturation 96.2 ABG Base Excess 17.5 FiO2 40% Sodium 139.7 Potassium 4.6 Chloride 90 L Carbon Dioxide 43 H* Anion Gap 7 BUN 16 Creatinine 0.55 Est GFR ( Amer) > 60 Est GFR (Non-Af Amer) > 60 Glucose 93 Calcium 8.7 Impressions: Chest X-Ray 05/31/16 17:04 IMPRESSION: NO ACUTE CARDIOPULMONARY PROCESS. Assessment & Plan - Diagnosis (1) Acute on chronic respiratory failure with hypercapnia Plan: Patient currently remains on bilevel Pap. We will continue this. She is not as somnolent as she was when she first came in. There has been some slow improvement. I suspect that this is largely due to her obesity hypoventilation syndrome. Hopefully she will be more awake by tomorrow for now we will continue current therapy. (2) UTI (urinary tract infection) Qualifiers: Urinary tract infection type: acute cystitis Hematuria presence: without hematuria Qualified Code(s): N30.00 - Acute cystitis without hematuria Is this a current diagnosis for this admission?: YesPlan: Patient with gram-negative yaritza urinary tract infection. We will add on Levaquin for now. I do not see where she has any allergies to this. We will await susceptibilities and identification of an organism. (3) Morbid obesity with BMI of 60.0-69.9, adult Is this a current diagnosis for this admission?: Yes (4) Anemia Qualifiers: Anemia type: other cause Other causes of anemia: chronic disease, other Qualified Code(s): D63.8 - Anemia in other chronic diseases classified elsewhere Is this a current diagnosis for this admission?: Yes - Time Time Spent with patient: 25-34 minutes - Inpatient Certification Based on my medical assessment, after consideration of the patient's comorbidities, presenting symptoms, or acuity I expect that the services needed warrant INPATIENT care.: Yes
[2016-06-02] MEDS: SULFAMETHOXAZOLE/TRIMETHOPRIM 800-160 MG TABLET PO SCH (17:41)
[2016-06-02 17:46] LABS: ARTERIAL BLOOD BASE EXCESS 15.1 mmol/L; ARTERIAL BLOOD O2 SATURATION 90.5 % (94-98)
[2016-06-02] MEDS: METOPROLOL SUCCINATE 50 MG TAB.SR.24H PO SCH (21:26)
[2016-06-03] MEDS: SULFAMETHOXAZOLE/TRIMETHOPRIM 800-160 MG TABLET PO SCH ×2 (06:07→17:39)
[2016-06-03] MEDS: HEPARIN SOD (PORCINE) 5,000 UNIT/ML 1 ML SYRINGE SUBCUT SCH ×3 (06:07→23:30)
[2016-06-03 06:41] LABS: ABSOLUTE EOSINOPHILS # (AUTO) 0.1 10^3/uL (0.0-0.6); ABSOLUTE LYMPHOCYTES (AUTO) 1.1 10^3/uL (0.5-4.7); ABSOLUTE MONOCYTES (AUTO) 0.9 10^3/uL (0.1-1.4); ABSOLUTE NEUT (AUTO) 7.3 10^3/uL (1.7-8.2); BASOPHILS % (AUTO) 0.5 % (0-2); EOSINOPHILS % (AUTO) 1.3 % (0-6); HEMATOCRIT 31.4 % (36.0-47.0); HEMOGLOBIN 9.4 g/dL (12.0-15.5); HGB HCT DIFFERENCE -3.2; LYMPHOCYTES % (AUTO) 11.7 % (13-45); MEAN CORPUSCULAR HEMOGLOBIN 21.9 pg (27.0-33.4); MEAN CORPUSCULAR HGB CONC 29.9 g/dL (32.0-36.0); MEAN CORPUSCULAR VOLUME 73 fl (80-97); MONOCYTES % (AUTO) 9.9 % (3-13); RED BLOOD COUNT 4.28 10^6/uL (3.72-5.28); RED CELL DISTRIBUTION WIDTH 18.3 % (11.5-14.0); SEGMENTED NEUTROPHILS % (AUTO) 76.6 % (42-78); WHITE BLOOD COUNT 9.6 10^3/uL (4.0-10.5)
[2016-06-03 06:45] LABS: BLOOD UREA NITROGEN 18 mg/dL (7-20); CALCIUM 8.7 mg/dL (8.4-10.2); CHLORIDE 87 mmol/L (98-107); CREATININE RESULT 0.68 mg/dL (0.52-1.25); GLUCOSE 112 mg/dL (75-110); POTASSIUM 4.6 mmol/L (3.6-5.0); SODIUM 138.5 mmol/L (137-145)
[2016-06-03 06:47] LABS: ANION GAP 13 (5-19); CARBON DIOXIDE 39 mmol/L (22-30)
[2016-06-03] MEDS: IPRATROPIUM/ALBUTEROL 0.5-2.5 MG/3 ML AMPUL NEB SCH ×3 (08:18→20:39)
[2016-06-03] MEDS: FLUTICASONE/SALMETEROL DISKUS 250-50 MCG/DOSE IH SCH ×2 (09:20→23:31)
[2016-06-03] MEDS: FLUOXETINE HCL 20 MG CAPSULE PO SCH (09:20)
[2016-06-03] MEDS: METOPROLOL SUCCINATE 50 MG TAB.SR.24H PO SCH ×2 (09:21→23:31)
[2016-06-03] MEDS: DILTIAZEM HCL 180 MG CAPSULE.CR PO SCH ×2 (09:22→23:31)
[2016-06-03] MEDS: DIGOXIN 0.125 MG TABLET PO SCH (09:22)
[2016-06-03] MEDS: DOCUSATE SODIUM 100 MG CAPSULE PO SCH ×2 (09:23→17:41)
--- NOTE | 2016-06-03 09:46 | PDOC PROGRESS REPORT ---
Subjective Progress Note for:: 06/02/16 Subjective:: This is a follow-up visit for acute on chronic respiratory failure. The patient was seen earlier this morning at the bedside. She feels tired and weak. S She denied any chest pain. She denied any symptoms of chest pain. She stated that her breathing was a little bit off. Patient also states that she is not allergic to epinephrine. She has concerns that this was listed as an allergy. Physical Exam Vital Signs: Temp Pulse Resp BP Pulse Ox 98.6 F 63 25 H 111/72 93 06/02/16 12:00 06/02/16 14:46 06/02/16 14:46 06/02/16 12:00 06/02/16 14:46 Intake & Output 06/01/16 06/02/16 06/03/16 06:59 06:59 06:59 Intake Total 932 Output Total 425 Balance -425 932 Weight 193.9 kg PHYSICAL EXAM: GENERAL: This is a well-developed well-nourished morbidly obese white female resting in no acute distress. HEART: Regular rate and rhythm. No murmurs rubs or gallops. LUNGS: Diminished at the bases bilaterally with equal rise and fall of the chest. ABDOMEN: Soft, nontender, nondistended obese with normoactive bowel sounds EXTREMITIES: No clubbing cyanosis or 4+ edema/lymphedema. peripheral pulses not palpable secondary to body habitus. NEURO: Awake, alert, oriented x-3. Cranial nerves II through XII grossly intact. PSYCH: Normal affect. Results Laboratory Results: 06/02/16 05:12 06/02/16 05:12 06/01/16 06/02/16 06/02/16 05:48 05:12 05:12 WBC 8.6 RBC 3.86 Hgb 8.4 L Hct 28.4 L MCV 74 L MCH 21.9 L MCHC 29.7 L RDW 17.8 H Plt Count 304 Seg Neutrophils % 80.2 H Lymphocytes % 8.2 L Monocytes % 10.1 Eosinophils % 1.0 Basophils % 0.5 Absolute Neutrophils 6.9 Absolute Lymphocytes 0.7 Absolute Monocytes 0.9 Absolute Eosinophils 0.1 Absolute Basophils 0.0 Sodium 138.8 Potassium 4.8 Chloride 89 L Carbon Dioxide 41 H* Anion Gap 9 BUN 18 Creatinine 0.69 Est GFR ( Amer) > 60 Est GFR (Non-Af Amer) > 60 Glucose 102 Calcium 8.6 Magnesium 2.0 Serum HCG, Qual NEGATIVE Impressions: Chest X-Ray 05/31/16 17:04 IMPRESSION: NO ACUTE CARDIOPULMONARY PROCESS. Assessment & Plan - Diagnosis (1) Acute on chronic respiratory failure with hypercapnia Plan: Patient currently off of bilevel Pap and on nasal cannula. She is not as somnolent as she was yesterday and her mentation is greatly improved. There has been some slow improvement. I suspect that this is largely due to her obesity hypoventilation syndrome. (2) UTI (urinary tract infection) Qualifiers: Urinary tract infection type: acute cystitis Hematuria presence: without hematuria Qualified Code(s): N30.00 - Acute cystitis without hematuria Is this a current diagnosis for this admission?: YesPlan: Patient has Escherichia coli UTI resistant to Levaquin. Therefore we will change this to Bactrim (3) Morbid obesity with BMI of 60.0-69.9, adult Is this a current diagnosis for this admission?: YesPlan: Weight loss through dietary changes (4) Anemia Qualifiers: Anemia type: other cause Other causes of anemia: chronic disease, other Qualified Code(s): D63.8 - Anemia in other chronic diseases classified elsewhere Is this a current diagnosis for this admission?: Yes
--- NOTE | 2016-06-03 14:27 | PDOC PROGRESS REPORT ---
Subjective Progress Note for:: 06/03/16 Subjective:: This is a follow-up visit for acute on chronic respiratory failure. The patient was seen earlier this morning at the bedside. She feels tired and weak. She denied any chest pain. Her daughter is with her at the bedside. We had a detailed conversation separate from the patient who was in agreement with this. Her daughter has concerns that she is depressed and needs a psychiatric consult. She states that her mother has lost interest in the drive to try and take care of herself. 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 Her daughter is 24 years old and became quite tearful during our conversation she feels that her mother has lost the will to go on and is not sure what to do for her anymore. Physical Exam Vital Signs: Temp Pulse Resp BP Pulse Ox 97.6 F 82 25 H 94/75 L 90 L 06/03/16 12:06 06/03/16 12:06 06/03/16 12:06 06/03/16 12:06 06/03/16 12:06 Intake & Output 06/02/16 06/03/16 06/04/16 06:59 06:59 06:59 Intake Total 932 1662 Balance 932 1662 Weight 193.9 kg PHYSICAL EXAM: GENERAL: This is a well-developed well-nourished morbidly obese white female resting in no acute distress. HEART: Regular rate and rhythm. No murmurs rubs or gallops. LUNGS: Diminished at the bases bilaterally with equal rise and fall of the chest. ABDOMEN: Soft, nontender, nondistended obese with normoactive bowel sounds EXTREMITIES: No clubbing cyanosis or 4+ edema/lymphedema. peripheral pulses not palpable secondary to body habitus. NEURO: Awake, alert, oriented x-3. Cranial nerves II through XII grossly intact. PSYCH: Normal affect. Results Laboratory Results: 06/03/16 05:04 06/03/16 05:04 06/02/16 06/03/16 06/03/16 17:27 05:04 05:04 WBC 9.6 RBC 4.28 Hgb 9.4 L Hct 31.4 L MCV 73 L MCH 21.9 L MCHC 29.9 L RDW 18.3 H Plt Count 340 Seg Neutrophils % 76.6 Lymphocytes % 11.7 L Monocytes % 9.9 Eosinophils % 1.3 Basophils % 0.5 Absolute Neutrophils 7.3 Absolute Lymphocytes 1.1 Absolute Monocytes 0.9 Absolute Eosinophils 0.1 Absolute Basophils 0.0 Carbonic Acid 2.35 H HCO3/H2CO3 Ratio 18:1 ABG pH 7.36 ABG pCO2 78.1 H* ABG pO2 64.1 L ABG HCO3 43.1 H ABG O2 Saturation 90.5 L ABG Base Excess 15.1 FiO2 4L Sodium 138.5 Potassium 4.6 Chloride 87 L Carbon Dioxide 39 H Anion Gap 13 BUN 18 Creatinine 0.68 Est GFR ( Amer) > 60 Est GFR (Non-Af Amer) > 60 Glucose 112 H Calcium 8.7 06/03/16 09:48 NT-Pro-B Natriuret Pep 598 H Impressions: Chest X-Ray 05/31/16 17:04 IMPRESSION: NO ACUTE CARDIOPULMONARY PROCESS. Assessment & Plan - Diagnosis (1) Acute on chronic respiratory failure with hypercapnia Plan: Continue bilevel Pap as needed. There has been some slow improvement. I suspect that this is largely due to her obesity hypoventilation syndrome. Patient also has underlying systolic heart failure. (2) UTI (urinary tract infection) Qualifiers: Urinary tract infection type: acute cystitis Hematuria presence: without hematuria Qualified Code(s): N30.00 - Acute cystitis without hematuria Is this a current diagnosis for this admission?: YesPlan: Continue Bactrim for 7 day course. This is day 1 (3) Morbid obesity with BMI of 60.0-69.9, adult Is this a current diagnosis for this admission?: Yes (4) Anemia Qualifiers: Anemia type: other cause Other causes of anemia: chronic disease, other Qualified Code(s): D63.8 - Anemia in other chronic diseases classified elsewhere Is this a current diagnosis for this admission?: YesPlan: Stable (5) Depression Plan: Check TSH we'll start low-dose SSRI consult psychiatry. - Time Time Spent with patient: 25-34 minutes - Inpatient Certification Medical Necessity: Significant Comorbidiites Make Outpatient Treatment Too Risky
[2016-06-03] MEDS: NYSTATIN CREAM 15 GM TP SCH (17:39)
[2016-06-03] MEDS: FUROSEMIDE INJ/PF 20 MG/2 ML SDV IV SCH (17:40)
--- NOTE | 2016-06-03 19:21 | XCELERA REPORT ---
[address] [address] Transthoracic Echocardiogram Report Name: MANDY FELIX Age: 50 yrs Gender: Female : 1965 Patient Status: Inpatient Patient Location: [id number]\S\321\[id number]\A Study Date: 06/03/2016 01:19 PM Height: 66 in Weight: 427 lb BSA: 2.8 m2 Procedure: A complete two-dimensional transthoracic echocardiogram was performed (2D, M-mode, spectral and color flow Doppler). The study was technically difficult with many images being suboptimal in quality. Reason For Study: Respiratory distress with systolic dysfunction Ordering Physician: VIOLET SALAZAR Performed By: Yaritaz Monahan Interpretation Summary The study was technically difficult with many images being suboptimal in quality. The left ventricular ejection fraction is normal. The right ventricle is moderately dilated. The right ventricle appears to be hypertrophied The right ventricular systolic function is moderately reduced. There is servere pulmonary hypertension by echo Best estimated RVSP is approximately 60-70 mm/Hg. There is mild concentric left ventricular hypertrophy. The left ventricle is grossly normal size. Not all wall segments were well visualized. Regional wall motion abnormalities cannot be excluded due to limited visualization. The right atrium is severely dilated. The left atrium is moderately dilated. There is a trace amount of mitral regurgitation There is no mitral valve stenosis. There is a trace amount of aortic regurgitation There is no aortic valve stenosis There is a mild to moderate amount of tricuspid regurgitation The inferior vena cava appeared dilated and decreased < 50% with respiration (RAP 15-20 mmHg) Minimal pericardial effusion. MMode/2D Measurements \T\ Calculations RVDd: 3.8 cm LVIDd: 5.2 cmFS: 37.4 % Ao root diam: 3.5 cm IVSd: 1.1 cm LVIDs: 3.2 cmEDV(Teich): 126.9 ml LVPWd: 1.1 cmESV(Teich): 41.9 ml Ao root area: 9.6 cm2 EF(Teich): 67.0 % LA dimension: 4.3 cm LVOT diam: 2.4 cm LVOT area: 4.5 cm2 Doppler Measurements \T\ Calculations MV E max maite: MV P1/2t max maite: Ao V2 max: LV V1 max P.3 cm/sec 144.8 cm/sec 135.1 cm/sec 2.1 mmHg MV P1/2t: 50.9 msec Ao max PG: LV V1 max: MVA(P1/2t): 4.3 cm2 7.3 mmHg 72.8 cm/sec MV dec slope: HARIS(V,D): 2.4 cm2 833.9 cm/sec2 PA V2 max: PI end-d maite: TR max maite: 81.9 cm/sec 168.3 cm/sec 381.4 cm/sec PA max P.7 mmHg TR max P.2 mmHg Left Ventricle The left ventricle is grossly normal size. There is mild concentric left ventricular hypertrophy. The left ventricular ejection fraction is normal. LV diastolic function could not be adequately assessed due to atrial fibrilation. Not all wall segments were well visualized. Regional wall motion abnormalities cannot be excluded due to limited visualization. Right Ventricle The right ventricle is moderately dilated. The right ventricle appears to be hypertrophied. The right ventricular systolic function is moderately reduced. Atria The right atrium is severely dilated. The left atrium is moderately dilated. Interarterial septum not well visualized and not well dopplered. Cannot comment on ASD/PFO presence. Mitral Valve The mitral valve is not well visualized. There is no mitral valve stenosis. There is a trace amount of mitral regurgitation. Aortic Valve The aortic valve is not well visualized secondary to technical limitations. There is no aortic valve stenosis. There is a trace amount of aortic regurgitation. Tricuspid Valve The tricuspid valve is not well visualized secondary to technical limitations. There is no tricuspid stenosis. There is a mild to moderate amount of tricuspid regurgitation. There is servere pulmonary hypertension by echo. Best estimated RVSP is approximately 60-70 mm/Hg. Pulmonic Valve The pulmonic valve is not well visualized. Great Vessels The aortic root is not well visualized. The inferior vena cava appeared dilated and decreased < 50% with respiration (RAP 15-20 mmHg). Effusions Minimal pericardial effusion. : VIOLET SALAZAR > Yulissa Mondragon
--- NOTE | 2016-06-03 20:28 | PDOC CONSULTATION ---
Consultation Consult Date: 06/03/16 Attending physician:: GERARDO VU Consult reason:: Congestive heart failure History of Present Illness Admission Date/PCP: 05/31/16 19:30 BENY ESQUIVEL MD Patient complains of: Dyspnea, pedal edema History of Present Illness: MANDY FELIX is a 50 year old female with a past medical history of severe morbid obesity with a BMI greater than 65, morbid obesity hypoventilation syndrome, obstructive sleep apnea, combined diastolic and systolic heart failure with an ejection fraction of 35-40%, chronic atrial fibrillation, anemia , and home oxygen dependent. Who is had several days of difficulty walking and staying awake prompting to seek evaluation emergency room where she's found to have partially compensated hypercapnic respiratory failure with a PCO2 of 88 after 2 hours on BiPAP. She denies chest pain. Patient claims that she has significant chronic lymphedema of both lower extremity for quite some time. Patient denied any prior history of myocardial infarction. Patient denied any history of sustained palpitations, syncope, near syncope. Patient has noted worsening pedal edema and shortness of breath. As noted above it was decreased mobility and difficulty keeping awake that brought her to the emergency room. Patient is suspected to have CHF. I was therefore asked to help with management. Of note patient also carries diagnosis of atrial fibrillation, history of CAD etc. Patient is a poor historian and did not want to talk much but didn't provide answers mostly to direct questioning. She did not add very much on her own. Past Medical History Cardiac Medical History: Reports: Atrial Fibrillation, Coronary Artery Disease, Hyperlipidema, Hypertension Denies: Myocardial Infarction Pulmonary Medical History: Reports: Asthma, Chronic Obstructive Pulmonary Disease (COPD), Respiratory Failure, Sleep Apnea Denies: Bronchitis, Pneumonia, Tuberculosis Neurological Medical History: Reports: Migraine Denies: Seizures Musculoskeltal Medical History: Reports: Arthritis Psychiatric Medical History: Reports: Depression Hematology: Reports: Anemia Past Surgical History Past Surgical History: Reports: Section Denies: Hysterectomy Social History Information Source: Patient Lives with: Family Smoking Status: Former Smoker Frequency of Alcohol Use: None Hx Recreational Drug Use: No Drugs: None Hx Prescription Drug Abuse: No - Advance Directive Resuscitation Status: Full Code Family History Family History: Reviewed & Not Pertinent, Hypertension Parental Family History Reviewed: Yes Children Family History Reviewed: Yes Sibling(s) Family History Reviewed.: Yes - Negative for premature coronary artery disease or sudden cardiac in the family amongst first degree relatives. Medication/Allergy Home Medications: Albuterol Sulfate [Proair HFA] 2 puff IH Q6 06/01/16 Clotrimazole [Athletic Foot Cream] 1 applic TP TID 06/01/16 Digoxin [Lanoxin 0.125 mg Tablet] 0.125 mg PO DAILY 06/01/16 Diltiazem HCl [Diltiazem ER] 180 mg PO Q12 06/01/16 Fluoxetine HCl [Prozac] 40 mg PO DAILY 06/01/16 Fluticasone/Salmeterol [Advair 250-50 Diskus 14 Dose/Diskus] 1 inh IH Q12 Furosemide [Lasix] 20 mg PO QHS 06/01/16 Furosemide [Lasix] 60 mg PO QAM 06/01/16 Lisinopril [Prinivil 2.5 mg Tablet] 2.5 mg PO DAILY 06/01/16 Metoprolol Succinate [Toprol Xl 50 mg Tab.sr] 50 mg PO Q12 06/01/16 Nystatin [Nyata] 15 gm TP BID 06/01/16 Allergies/Adverse Reactions: budesonide [From Pulmicort] Allergy (Unknown, Verified 06/01/16 00:36) amoxicillin trihydrate [From Augmentin] Allergy (Verified 06/01/16 00:36) brompheniramine maleate [From Dimetapp] Allergy (Verified 06/01/16 00:36) dextromethorphan HBr [From Dimetapp] Allergy (Verified 06/01/16 00:36) phenylpropanolamine HCl [From Dimetapp] Allergy (Verified 06/01/16 00:36) Potassium Clavulanate * [From Augmentin] Allergy (Verified 06/01/16 00:36) pseudoephedrine HCl [From Dimetapp] Allergy (Verified 06/01/16 00:36) tetracycline [Tetracycline] Allergy (Verified 06/01/16 00:36) epinephrine [From Primatene Mist] Adverse Reaction (Verified 06/01/16 00:36) Difficulty breathing Review of Systems Review of Systems: Please see history of present illness and past medical history as wall. Constitutional: No fever or chills reported. Head : No recent chronic headaches, recent head injury. Eyes: No recent eye pain, diplopia, redness, discharge, acute visual changes. Ears: No recent chronic ear pain, acute hearing loss, ear discharge. Oral cavity: No recent ulcerations, bleeding, oral cavity discomfort. Neck: No recent acute neck pain reported. Hematologic: No recent easy bruising or bleeding or hematologic malignancy reported. Lymphatic: No recent lymphatic malignancy, chronic lymphadenopathy reported yet Cardiovascular system review: See history of present illness. Patient has noted increased pedal edema. Respiratory system review: No recent chronic cough, hemoptysis, blood clots in the lungs reported. Increased Shortness of breath on exertion Gastrointestinal system review: Negative for any recent acute or chronic abdominal pain, hematemesis, melena, recent change in bowel habits. Genitourinary system review: No recent acute or chronic hematuria, flank pain, UTI etc. reported. Skin system review: Negative for any recent abnormal bruising, no rash, no pruritus reported. Neurologic: No prior history of strokes, mini strokes, seizure disorder. Psychologic: No history of major psychosis or major depression reported. Musculoskeletal: Minor aches and pains reported. No acute joint swelling reported. Endocrine: No recent polyuria, polydipsia, recent heat or cold intolerance. Physical Exam Vital Signs: Temp Pulse Resp BP Pulse Ox 98.8 F 80 21 H 125/70 92 06/03/16 15:17 06/03/16 19:10 06/03/16 15:17 06/03/16 15:17 06/03/16 15:17 Intake & Output 06/02/16 06/03/16 06/04/16 06:59 06:59 06:59 Intake Total 932 1662 534 Balance 932 1662 534 Weight 193.9 kg Exam: GENERAL: well-nourished and in no acute distress. Alert and oriented x3 HEAD: Atraumatic, normocephalic. EYES: Pupils equal round and reactive to light, extraocular movements intact, sclera anicteric, conjunctiva are normal. ENT: TMs normal, nares patent, oropharynx clear without exudates. Moist mucous membranes. No oral ulcerations or bleeding gums noted NECK: supple without lymphadenopathy. Trachea is central. No cervical or axillary lymphadenopathy noted. Carotids are 2+, JVD DIFFICULT TO ASSESS BUT. THIS IS ELEVATED. LUNGS: Respiration seems nonlabored, no significant accessory muscle action noted. A lateral mild wheezing noted. No significant dullness noted on percussion. CHEST: Palpation of the chest wall shows no significant chest wall tenderness. No other significant abnormalities noted. 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 ABDOMEN: Soft, no significant tenderness appreciated, normoactive bowel sounds. No guarding, no rebound. No rigidity noted . No masses appreciated. EXTREMITIES: Pedal pulses are 1-2+, no calf tenderness noted. No clubbing or cyanosis.3-4+ + pedal edema noted. Chronic lymphedema changes noted. NEUROLOGICAL: Focused neurological exam showed no significant neurologic deficit. Normal speech, no focal weakness appreciated. PSYCH: Normal mood, normal affect. Judgment and insight within normal limits. SKIN: No significant ecchymosis, rash, ulcerations or signs of pruritus noted. MUSCULOSKELETAL EXAM: No significant joint swelling noted. Mobility limited secondary to super obesity. Results Laboratory Results: 06/03/16 05:04 06/03/16 05:04 06/03/16 06/03/16 05:04 05:04 WBC 9.6 RBC 4.28 Hgb 9.4 L Hct 31.4 L MCV 73 L MCH 21.9 L MCHC 29.9 L RDW 18.3 H Plt Count 340 Seg Neutrophils % 76.6 Lymphocytes % 11.7 L Monocytes % 9.9 Eosinophils % 1.3 Basophils % 0.5 Absolute Neutrophils 7.3 Absolute Lymphocytes 1.1 Absolute Monocytes 0.9 Absolute Eosinophils 0.1 Absolute Basophils 0.0 Sodium 138.5 Potassium 4.6 Chloride 87 L Carbon Dioxide 39 H Anion Gap 13 BUN 18 Creatinine 0.68 Est GFR ( Amer) > 60 Est GFR (Non-Af Amer) > 60 Glucose 112 H Calcium 8.7 06/03/16 09:48 NT-Pro-B Natriuret Pep 598 H EKG Comments: Atrial fibrillation with controlled ventricular response. No acute ST-T wave changes noted. Impressions: Chest X-Ray 05/31/16 17:04 IMPRESSION: NO ACUTE CARDIOPULMONARY PROCESS. Assessment & Plan - Diagnosis (1) Acute respiratory failure with hypoxia and hypercarbia Is this a current diagnosis for this admission?: Yes (2) Atrial fibrillation Qualifiers: Atrial fibrillation type: unspecified Qualified Code(s): I48.91 - Unspecified atrial fibrillation Is this a current diagnosis for this admission?: Yes (3) Morbid obesity with BMI of 60.0-69.9, adult Is this a current diagnosis for this admission?: Yes (4) Congestive heart failure (CHF) Qualifiers: Congestive heart failure type: diastolic Is this a current diagnosis for this admission?: Yes (5) Obstructive sleep apnea Is this a current diagnosis for this admission?: Yes (6) Sleep related hypoventilation/hypoxemia in other disease Is this a current diagnosis for this admission?: Yes - Notes Notes: Congestive heart failure: This is predominantly right-sided. 2-D echo shows moderate enlargement of the right ventricle with moderately depressed LVEF. In addition patient noted to have severe pulmonary hypertension. This is most likely secondary to obesity hypoventilation syndrome, chronic hypoxemia related. At this point agree with diuretic therapy. Patient will also benefit from chronic anticoagulation. Obstructive sleep apnea: Patient currently wearing BiPAP. Sleep related hypoventilation/hypoxemia, hypercarbia: Patient will benefit from continued noninvasive positive pressure ventilation. Atrial fibrillation: This is chronic. Recommend rate control and chronic anticoagulation. Obesity: Patient will benefit from weight loss. This was explained to the patient. Will continue to follow this patient. Will recommend pulmonary consultation. - Time Time Spent: 50 to 70 Minutes - CODE STATUS was discussed, patient remains full code. Surrogate decision-maker However patient currently not on chronic anticoagulation. Patient does have a history of menorrhagia. Will discuss anticoagulation issue with the patient tomorrow. Multiple medical problems were addressed.More than 50% of the time spent coordinating care, discussing management plans with involved caregivers. Management plans discussed with involved personnels. Medical decision making was of moderate to high complexity , patient's has multiple severe comorbidities. Medications reviewed and adjusted accordingly: Yes
[2016-06-03] MEDS: CLOTRIMAZOLE 1% CREAM 15 GM TP SCH (23:30)
[2016-06-04] MEDS: SULFAMETHOXAZOLE/TRIMETHOPRIM 800-160 MG TABLET PO SCH ×2 (05:40→17:57)
[2016-06-04] MEDS: HEPARIN SOD (PORCINE) 5,000 UNIT/ML 1 ML SYRINGE SUBCUT SCH ×3 (05:40→21:36)
[2016-06-04] MEDS: FUROSEMIDE INJ/PF 20 MG/2 ML SDV IV SCH ×2 (05:40→17:58)
[2016-06-04] MEDS: CLOTRIMAZOLE 1% CREAM 15 GM TP SCH ×3 (05:41→21:35)
[2016-06-04] MEDS: IPRATROPIUM/ALBUTEROL 0.5-2.5 MG/3 ML AMPUL NEB SCH ×3 (07:44→20:13)
[2016-06-04] MEDS: FLUTICASONE/SALMETEROL DISKUS 250-50 MCG/DOSE IH SCH ×2 (09:38→21:36)
[2016-06-04] MEDS: NYSTATIN CREAM 15 GM TP SCH ×2 (09:38→18:01)
[2016-06-04] MEDS: FLUOXETINE HCL 20 MG CAPSULE PO SCH (09:42)
[2016-06-04] MEDS: METOPROLOL SUCCINATE 50 MG TAB.SR.24H PO SCH ×2 (09:43→21:36)
[2016-06-04] MEDS: DIGOXIN 0.125 MG TABLET PO SCH (09:43)
[2016-06-04] MEDS: DILTIAZEM HCL 180 MG CAPSULE.CR PO SCH ×2 (09:44→21:35)
[2016-06-04] MEDS: DOCUSATE SODIUM 100 MG CAPSULE PO SCH ×2 (09:45→18:02)
--- NOTE | 2016-06-04 11:35 | PDOC PROGRESS REPORT ---
Subjective Progress Note for:: 06/04/16 Subjective:: This is a follow-up visit for acute on chronic respiratory failure. Spoke with the patient this morning about my conversation with her daughter. I have recommended family counseling. She states that she slept okay last night. She denies any chest pain or worsening shortness of breath. She does admit to feelings of depression. Physical Exam Vital Signs: Temp Pulse Resp BP Pulse Ox 98.0 F 86 24 H 118/74 91 L 06/04/16 07:52 06/04/16 07:52 06/04/16 07:52 06/04/16 07:52 06/04/16 07:52 Intake & Output 06/03/16 06/04/16 06/05/16 06:59 06:59 06:59 Intake Total 1662 686 Balance 1662 686 Weight 193.9 kg 115 kg PHYSICAL EXAM: GENERAL: This is a well-developed well-nourished morbidly obese white female resting in no acute distress. HEART: Regular rate and rhythm. No murmurs rubs or gallops. LUNGS: Diminished at the bases bilaterally with equal rise and fall of the chest. ABDOMEN: Soft, nontender, nondistended obese with normoactive bowel sounds EXTREMITIES: No clubbing cyanosis or 4+ edema/lymphedema. peripheral pulses not palpable secondary to body habitus. NEURO: Awake, alert, oriented x-3. Cranial nerves II through XII grossly intact. PSYCH: Normal affect. With periods of tearfulness Results Laboratory Results: 06/03/16 05:04 06/03/16 05:04 06/03/16 09:48 NT-Pro-B Natriuret Pep 598 H Impressions: Chest X-Ray 05/31/16 17:04 IMPRESSION: NO ACUTE CARDIOPULMONARY PROCESS. Assessment & Plan - Diagnosis (1) Acute on chronic respiratory failure with hypercapnia Plan: Continue bilevel Pap as needed. There has been some slow improvement. I suspect that this is largely due to her obesity hypoventilation syndrome. Patient also has underlying systolic heart failure. (2) UTI (urinary tract infection) Qualifiers: Urinary tract infection type: acute cystitis Hematuria presence: without hematuria Qualified Code(s): N30.00 - Acute cystitis without hematuria Plan: Continue Bactrim for 7 day course. This is day 2 (3) Morbid obesity with BMI of 60.0-69.9, adult Is this a current diagnosis for this admission?: YesPlan: Weight loss through dietary changes (4) Anemia Qualifiers: Anemia type: other cause Other causes of anemia: chronic disease, other Qualified Code(s): D63.8 - Anemia in other chronic diseases classified elsewhere Is this a current diagnosis for this admission?: YesPlan: Stable (5) Depression Plan: Check TSH. Continue Prozac. Discussed at length how the patient was feeling about being depressed about her relationship with her daughter. She freely admits to sometimes being "lazy". States however that given how her body is that she simply can't do some of the things her daughter would like her to do. Sure on how to speak to her daughter about this (6) Chronic systolic CHF (congestive heart failure) Plan: Acute on chronic combined diastolic and Systolic heart failure with EF of 35%. patient is now on Lasix every 12 hours IV cardiology is following - Time Time Spent with patient: 25-34 minutes - Inpatient Certification Medical Necessity: Need Close Monitoring Due to Risk of Patient Decompensation
--- NOTE | 2016-06-04 20:26 | PDOC PROGRESS REPORT ---
Subjective Progress Note for:: 06/04/16 Subjective:: Patient seems to be doing better with gradual improvement. Pt is denying any chest arm or neck discomfort. Patient denying any PND, orthopnea. Patient denied any sustained palpitations, dizziness, syncope, near syncope. Patient denying any fever chills. Patient denying any other significant discomfort. Patient is maintaining chronic atrial fibrillation. Patient has seen gradual improvement. Review of systems: Rest review of systems negative. Medications: Medications have been reviewed. Physical Exam Vital Signs: Temp Pulse Resp BP Pulse Ox 98.2 F 80 26 H 123/72 91 L 06/04/16 16:30 06/04/16 16:30 06/04/16 16:30 06/04/16 16:30 06/04/16 16:30 Intake & Output 06/03/16 06/04/16 06/05/16 06:59 06:59 06:59 Intake Total 1662 686 388 Output Total 400 Balance 1662 686 -12 Weight 193.9 kg 115 kg Exam: GENERAL: well-nourished and in no acute distress. Alert and oriented x3 HEAD: Atraumatic, normocephalic. EYES: Pupils equal round and reactive to light, extraocular movements intact, sclera anicteric, conjunctiva are normal. ENT: TMs normal, nares patent, oropharynx clear without exudates. Moist mucous membranes. No oral ulcerations or bleeding gums noted NECK: supple without lymphadenopathy. Trachea is central. No cervical or axillary lymphadenopathy noted. Carotids are 2+, JVD WNL LUNGS: Respiration seems nonlabored, no significant accessory muscle action noted. Shows mild bilateral wheezes and crackles. No significant dullness noted on percussion. CHEST: Palpation of the chest wall shows no significant chest wall tenderness. No other significant abnormalities noted. 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 ABDOMEN: Soft, no significant tenderness appreciated, normoactive bowel sounds. No guarding, no rebound. No rigidity noted . No masses appreciated. EXTREMITIES: Pedal pulses are 1-2+, no calf tenderness noted. No clubbing or cyanosis.3+ + pedal edema noted. Patient has significant lymphedema. NEUROLOGICAL: Focused neurological exam showed no significant neurologic deficit. Normal speech, no focal weakness appreciated. PSYCH: Normal mood, normal affect. Judgment and insight within normal limits. SKIN: No significant ecchymosis, rash, patient noted to have superficial ulceration on the right foot which is covered by a bandage.. MUSCULOSKELETAL EXAM: No significant joint swelling noted. Results Laboratory Results: 06/03/16 05:04 06/03/16 05:04 06/03/16 09:48 NT-Pro-B Natriuret Pep 598 H Impressions: Chest X-Ray 05/31/16 17:04 IMPRESSION: NO ACUTE CARDIOPULMONARY PROCESS. Assessment & Plan - Diagnosis (1) Acute respiratory failure with hypoxia and hypercarbia Is this a current diagnosis for this admission?: Yes (2) Atrial fibrillation Qualifiers: Atrial fibrillation type: unspecified Qualified Code(s): I48.91 - Unspecified atrial fibrillation Is this a current diagnosis for this admission?: Yes (3) Morbid obesity with BMI of 60.0-69.9, adult Is this a current diagnosis for this admission?: Yes (4) Congestive heart failure (CHF) Qualifiers: Congestive heart failure type: diastolic Is this a current diagnosis for this admission?: Yes (5) Obstructive sleep apnea Is this a current diagnosis for this admission?: Yes (6) Sleep related hypoventilation/hypoxemia in other disease Is this a current diagnosis for this admission?: Yes - Notes Notes: Congestive heart failure: This is predominantly right-sided. 2-D echo shows moderate enlargement of the right ventricle with moderately depressed right ventricular ejection fraction. In addition patient noted to have severe pulmonary hypertension. This is most likely secondary to obesity hypoventilation syndrome, chronic hypoxemia related. At this point agree with diuretic therapy. Patient will also benefit from chronic anticoagulation. Patient tells me that she is on chronic bilevel therapy and also chronic oxygen supplementation. This is being arranged through [employer] and being monitored by Dr. HEIDI OROPEZA MD. Obstructive sleep apnea: Patient currently on nasal oxygen and uses nightly bilevel therapy. Sleep related hypoventilation/hypoxemia, hypercarbia: Patient will benefit from continued noninvasive positive pressure ventilation. This therapy is being continued. Atrial fibrillation: This is chronic. Recommend rate control and chronic anticoagulation. Heart rate is well controlled. Obesity: Patient will benefit from weight loss. This was explained to the patient. Patient does not want to consider any obesity surgery. Will continue to follow this patient. Will recommend pulmonary consultation. - Time Time with patient: Greater than 35 minutes - CODE STATUS was discussed, patient remains full code. Surrogate decision-maker unchanged. Multiple medical problems were addressed.More than 50% of the time spent coordinating care, discussing management plans with involved caregivers. Management plans discussed with involved personnels. Medical decision making was of moderate to high complexity, patient's has multiple severe comorbidities. Significant time spent trying to ascertain the status of patient's respiratory failure management and sleep apnea management. Medications reviewed and adjusted accordingly: Yes
[2016-06-04] MEDS: ACETAMINOPHEN 325 MG TABLET PO PRN (22:54)
[2016-06-05] MEDS: FUROSEMIDE INJ/PF 20 MG/2 ML SDV IV SCH ×2 (05:17→17:13)
[2016-06-05] MEDS: SULFAMETHOXAZOLE/TRIMETHOPRIM 800-160 MG TABLET PO SCH ×2 (05:17→17:14)
[2016-06-05] MEDS: CLOTRIMAZOLE 1% CREAM 15 GM TP SCH ×3 (05:17→21:33)
[2016-06-05] MEDS: HEPARIN SOD (PORCINE) 5,000 UNIT/ML 1 ML SYRINGE SUBCUT SCH ×3 (05:17→21:33)
[2016-06-05 05:38] LABS: ABSOLUTE EOSINOPHILS # (AUTO) 0.1 10^3/uL (0.0-0.6); ABSOLUTE LYMPHOCYTES (AUTO) 0.9 10^3/uL (0.5-4.7); ABSOLUTE MONOCYTES (AUTO) 0.9 10^3/uL (0.1-1.4); ABSOLUTE NEUT (AUTO) 7.8 10^3/uL (1.7-8.2); BASOPHILS % (AUTO) 0.2 % (0-2); EOSINOPHILS % (AUTO) 1.1 % (0-6); HEMATOCRIT 28.8 % (36.0-47.0); HEMOGLOBIN 8.7 g/dL (12.0-15.5); HGB HCT DIFFERENCE -2.7; LYMPHOCYTES % (AUTO) 9.6 % (13-45); MEAN CORPUSCULAR HGB CONC 30.2 g/dL (32.0-36.0); MEAN CORPUSCULAR VOLUME 73 fl (80-97); MONOCYTES % (AUTO) 9.4 % (3-13); RED BLOOD COUNT 3.97 10^6/uL (3.72-5.28); RED CELL DISTRIBUTION WIDTH 18.1 % (11.5-14.0); SEGMENTED NEUTROPHILS % (AUTO) 79.7 % (42-78); WHITE BLOOD COUNT 9.9 10^3/uL (4.0-10.5)
[2016-06-05 06:00] LABS: ANION GAP 10 (5-19); BLOOD UREA NITROGEN 17 mg/dL (7-20); CALCIUM 8.7 mg/dL (8.4-10.2); CARBON DIOXIDE 39 mmol/L (22-30); CHLORIDE 91 mmol/L (98-107); CREATININE RESULT 0.65 mg/dL (0.52-1.25); GLUCOSE 93 mg/dL (75-110); MAGNESIUM 2.1 mg/dL (1.6-2.3); POTASSIUM 4.7 mmol/L (3.6-5.0)
--- NOTE | 2016-06-05 08:07 | PDOC CONSULTATION ---
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 Who is had several days of difficulty walking and staying awake prompting to seek evaluation emergency room where she's found to have partially compensated hypercapnic respiratory failure with a PCO2 of 88 after 2 hours on BiPAP. She denies chest pain. Patient claims that she has significant chronic lymphedema of both lower extremity for quite some time. Patient denied any prior history of myocardial infarction. Patient denied any history of sustained palpitations, syncope, near syncope. Past Medical History Cardiac Medical History: Reports: Atrial Fibrillation, Coronary Artery Disease, Hyperlipidema, Hypertension Denies: Myocardial Infarction Pulmonary Medical History: Reports: Asthma, Chronic Obstructive Pulmonary Disease (COPD), Respiratory Failure, Sleep Apnea Denies: Bronchitis, Pneumonia, Tuberculosis Neurological Medical History: Reports: Migraine Denies: Seizures Musculoskeltal Medical History: Reports: Arthritis Psychiatric Medical History: Reports: Depression Hematology: Reports: Anemia Past Surgical History Past Surgical History: Reports: Section Denies: Hysterectomy Social History Information Source: Patient, [facility] Records Lives with: Family Smoking Status: Former Smoker Passive smoke exposure as: Both Frequency of Alcohol Use: None Hx Recreational Drug Use: No Drugs: None Hx Prescription Drug Abuse: No - Advance Directive Resuscitation Status: Full Code Family History Family History: Reviewed & Not Pertinent, Hypertension Parental Family History Reviewed: No Children Family History Reviewed: No Sibling(s) Family History Reviewed.: No Medication/Allergy Home Medications: Albuterol Sulfate [Proair HFA] 2 puff IH Q6 06/01/16 Clotrimazole [Athletic Foot Cream] 1 applic TP TID 06/01/16 Digoxin [Lanoxin 0.125 mg Tablet] 0.125 mg PO DAILY 06/01/16 Diltiazem HCl [Diltiazem ER] 180 mg PO Q12 06/01/16 Fluoxetine HCl [Prozac] 40 mg PO DAILY 06/01/16 Fluticasone/Salmeterol [Advair 250-50 Diskus 14 Dose/Diskus] 1 inh IH Q12 Furosemide [Lasix] 20 mg PO QHS 06/01/16 Furosemide [Lasix] 60 mg PO QAM 06/01/16 Lisinopril [Prinivil 2.5 mg Tablet] 2.5 mg PO DAILY 06/01/16 Metoprolol Succinate [Toprol Xl 50 mg Tab.sr] 50 mg PO Q12 06/01/16 Nystatin [Nyata] 15 gm TP BID 06/01/16 Allergies/Adverse Reactions: budesonide [From Pulmicort] Allergy (Unknown, Verified 06/01/16 00:36) amoxicillin trihydrate [From Augmentin] Allergy (Verified 06/01/16 00:36) brompheniramine maleate [From Dimetapp] Allergy (Verified 06/01/16 00:36) dextromethorphan HBr [From Dimetapp] Allergy (Verified 06/01/16 00:36) phenylpropanolamine HCl [From Dimetapp] Allergy (Verified 06/01/16 00:36) Potassium Clavulanate * [From Augmentin] Allergy (Verified 06/01/16 00:36) pseudoephedrine HCl [From Dimetapp] Allergy (Verified 06/01/16 00:36) tetracycline [Tetracycline] Allergy (Verified 06/01/16 00:36) epinephrine [From Primatene Mist] Adverse Reaction (Verified 06/01/16 00:36) Difficulty breathing Review of Systems ROS unobtainable: Due to endotracheal tube Physical Exam Vital Signs: Temp Pulse Resp BP Pulse Ox 98.0 F 86 24 H 118/74 91 L 06/04/16 07:52 06/04/16 07:52 06/04/16 07:52 06/04/16 07:52 06/04/16 07:52 Intake & Output 06/03/16 06/04/16 06/05/16 06:59 06:59 06:59 Intake Total 5264 146 Balance 1662 686 Weight 193.9 kg 115 kg General appearance: PRESENT: no acute distress, cooperative, disheveled, morbidly obese Head exam: PRESENT: atraumatic, normocephalic Eye exam: PRESENT: conjunctiva pale, EOMI Mouth exam: PRESENT: moist, neck supple Neck exam: ABSENT: carotid bruit, JVD, lymphadenopathy, thyromegaly Respiratory exam: PRESENT: decreased breath sounds, prolonged expiratory phas, symmetrical, unlabored Cardiovascular exam: PRESENT: RRR, +S1, +S2 Pulses: PRESENT: +2 pedal pulses bilateral GI/Abdominal exam: PRESENT: normal bowel sounds, soft. ABSENT: distended, guarding, mass, organolmegaly, rebound, tenderness Rectal exam: PRESENT: deferred, laceration Gentrourinary exam: PRESENT: indwelling catheter Extremities exam: PRESENT: other - chronic lymph Musculoskeletal exam: PRESENT: other - bedridden Neurological exam: PRESENT: alert, awake Skin exam: PRESENT: warm Results Laboratory Results: 06/03/16 05:04 06/03/16 05:04 06/03/16 09:48 NT-Pro-B Natriuret Pep 598 H Impressions: Chest X-Ray 05/31/16 17:04 IMPRESSION: NO ACUTE CARDIOPULMONARY PROCESS. Assessment & Plan - Diagnosis (1) Anemia Qualifiers: Anemia type: other cause Other causes of anemia: chronic disease, other Qualified Code(s): D63.8 - Anemia in other chronic diseases classified elsewhere Is this a current diagnosis for this admission?: Yes (2) Morbid obesity with BMI of 60.0-69.9, adult Is this a current diagnosis for this admission?: Yes (3) COPD (chronic obstructive pulmonary disease) Qualifiers: COPD type: unspecified COPD Qualified Code(s): J44.9 - Chronic obstructive pulmonary disease, unspecified Is this a current diagnosis for this admission?: Yes (4) Obstructive sleep apnea Is this a current diagnosis for this admission?: YesPlan: admits to recent decline in compliance with NIPPV - Plan Summary Plan Summary: The above patient has failed BiPAP. This patient would benefit from noninvasive mechanical ventilation via the trilogy AVAPS/AE and faster responding AVAPS rates. The trilogy is able to provide a target tidal volume and also adjusting the EPAP pressures to maintain a patent airway as well as an oral backup rate this machine will help improve PaCO2 levels. The severity of the patient's condition will lead to future hospitalizations and readmissions as well as life-threatening situations without the use of this device trilogy home vent needed for hypercapnic respiratory failure. [facility] up.
[2016-06-05] MEDS ORDERED: TUBERCULIN,PURIF.PROT.DERIV. 5 TU/0.1 ML TEST 1 ML VIAL ID ONE (08:30)
[2016-06-05] MEDS: IPRATROPIUM/ALBUTEROL 0.5-2.5 MG/3 ML AMPUL NEB SCH ×3 (08:40→20:16)
[2016-06-05] MEDS: METOPROLOL SUCCINATE 50 MG TAB.SR.24H PO SCH ×2 (10:22→21:33)
[2016-06-05] MEDS: NYSTATIN CREAM 15 GM TP SCH ×2 (10:22→17:17)
[2016-06-05] MEDS: FLUOXETINE HCL 20 MG CAPSULE PO SCH (10:22)
[2016-06-05] MEDS: DILTIAZEM HCL 180 MG CAPSULE.CR PO SCH ×2 (10:22→21:33)
[2016-06-05] MEDS: DIGOXIN 0.125 MG TABLET PO SCH (10:22)
[2016-06-05] MEDS: DOCUSATE SODIUM 100 MG CAPSULE PO SCH ×2 (10:23→17:17)
[2016-06-05] MEDS: FLUTICASONE/SALMETEROL DISKUS 250-50 MCG/DOSE IH SCH ×2 (10:23→21:33)
--- NOTE | 2016-06-05 10:50 | PDOC PROGRESS REPORT ---
Subjective Progress Note for:: 06/05/16 Subjective:: This is a follow-up visit for acute on chronic respiratory failure. Patient still groggy from just waking up. She didn't sleep that well last night. Currently is denying any pain. She wants to know what the plans are for her care. Physical Exam Vital Signs: Temp Pulse Resp BP Pulse Ox 98.6 F 89 22 H 127/74 H 92 06/05/16 07:50 06/05/16 08:40 06/05/16 08:40 06/05/16 07:50 06/05/16 08:40 Intake & Output 06/04/16 06/05/16 06/06/16 06:59 06:59 06:59 Intake Total 686 398 Output Total 400 Balance 686 -2 Weight 115 kg 128 kg PHYSICAL EXAM: GENERAL: This is a well-developed well-nourished morbidly obese white female resting in no acute distress. HEART: Regular rate and rhythm. No murmurs rubs or gallops. LUNGS: Diminished at the bases bilaterally with equal rise and fall of the chest. ABDOMEN: Soft, nontender, nondistended obese with normoactive bowel sounds EXTREMITIES: No clubbing cyanosis or 4+ edema/lymphedema. peripheral pulses not palpable secondary to body habitus. NEURO: Awake, alert, oriented x-3. Cranial nerves II through XII grossly intact. PSYCH: Normal affect. Results Laboratory Results: 06/05/16 04:05 06/05/16 04:05 06/05/16 06/05/16 06/05/16 04:05 04:05 04:05 WBC 9.9 RBC 3.97 Hgb 8.7 L Hct 28.8 L MCV 73 L MCH 22.0 L MCHC 30.2 L RDW 18.1 H Plt Count 333 Seg Neutrophils % 79.7 H Lymphocytes % 9.6 L Monocytes % 9.4 Eosinophils % 1.1 Basophils % 0.2 Absolute Neutrophils 7.8 Absolute Lymphocytes 0.9 Absolute Monocytes 0.9 Absolute Eosinophils 0.1 Absolute Basophils 0.0 Sodium 140.0 Potassium 4.7 Chloride 91 L Carbon Dioxide 39 H Anion Gap 10 BUN 17 Creatinine 0.65 Est GFR ( Amer) > 60 Est GFR (Non-Af Amer) > 60 Glucose 93 Calcium 8.7 Magnesium 2.1 TSH 3.72 06/03/16 09:48 NT-Pro-B Natriuret Pep 598 H Impressions: Chest X-Ray 05/31/16 17:04 IMPRESSION: NO ACUTE CARDIOPULMONARY PROCESS. Assessment & Plan - Diagnosis (1) Acute on chronic respiratory failure with hypercapnia Plan: Continue bilevel Pap as needed. There has been some slow improvement. I suspect that this is largely due to her obesity hypoventilation syndrome. Patient also has underlying systolic heart failure. Cardiology and pulmonology consult. (2) UTI (urinary tract infection) Qualifiers: Urinary tract infection type: acute cystitis Hematuria presence: without hematuria Qualified Code(s): N30.00 - Acute cystitis without hematuria Is this a current diagnosis for this admission?: YesPlan: Continue Bactrim for 7 day course. This is day 3 (3) Morbid obesity with BMI of 60.0-69.9, adult Is this a current diagnosis for this admission?: YesPlan: Weight loss through dietary changes (4) Anemia Qualifiers: Anemia type: other cause Other causes of anemia: chronic disease, other Qualified Code(s): D63.8 - Anemia in other chronic diseases classified elsewhere Is this a current diagnosis for this admission?: YesPlan: Stable (5) Depression Plan: Check TSH. Continue Prozac. Psychiatric consultation was placed. (6) Chronic systolic CHF (congestive heart failure) Plan: Acute on chronic combined diastolic and Systolic heart failure with EF of 35%. patient is now on Lasix every 12 hours IV cardiology is following. Will increase to 40 twice a day (7) Debility Plan: We'll consult PT for evaluation. I recommend the patient go to SNF. She has intentions of returning home with home health. Daughter lives with her sister with her healthcare. Her relationship however, is strained at the moment. The patient seems to feel that things will work out and that she could be better cared for at home.. - Time Time Spent with patient: 15-24 minutes - Inpatient Certification Medical Necessity: Need Close Monitoring Due to Risk of Patient Decompensation
--- NOTE | 2016-06-05 12:48 | PDOC PROGRESS REPORT ---
Subjective Progress Note for:: 06/05/16 Subjective:: Patient seems to be doing better with gradual improvement. Pt is denying any chest arm or neck discomfort. Patient denying any PND, orthopnea. Patient denied any sustained palpitations, dizziness, syncope, near syncope. Patient denying any fever chills. Patient denying any other significant discomfort. Patient claims pedal edema is somewhat improved. Patient is maintaining chronic atrial fibrillation. Review of systems: Rest review of systems negative. Medications: Medications have been reviewed. Physical Exam Vital Signs: Temp Pulse Resp BP Pulse Ox 98.7 F 81 24 H 129/69 H 95 06/05/16 11:45 06/05/16 11:45 06/05/16 11:45 06/05/16 11:45 06/05/16 11:45 Intake & Output 06/04/16 06/05/16 06/06/16 06:59 06:59 06:59 Intake Total 686 398 Output Total 400 Balance 686 -2 Weight 115 kg 128 kg Exam: GENERAL: well-nourished and in no acute distress. Alert and oriented x3 HEAD: Atraumatic, normocephalic. EYES: Pupils equal round and reactive to light, extraocular movements intact, sclera anicteric, conjunctiva are normal. ENT: TMs normal, nares patent, oropharynx clear without exudates. Moist mucous membranes. No oral ulcerations or bleeding gums noted NECK: supple without lymphadenopathy. Trachea is central. No cervical or axillary lymphadenopathy noted. Carotids are 2+, JVD WNL LUNGS: Respiration seems nonlabored, no significant accessory muscle action noted. Breath sounds clear to auscultation bilaterally and equal noted. No wheezes rales or rhonchi noted. No significant dullness noted on percussion. CHEST: Palpation of the chest wall shows no significant chest wall tenderness. No other significant abnormalities noted. HEART: [place] [employer], No PSH, 1/6 DAMIEN aortic area, 1/6 araujo systolic murmur mitral area, no rubs, no gallops. ABDOMEN: Soft, no significant tenderness appreciated, normoactive bowel sounds. No guarding, no rebound. No rigidity noted . No masses appreciated. EXTREMITIES: Pedal pulses are 1-2+, no calf tenderness noted. No clubbing or cyanosis.2-3+ pedal edema with chronic lymphedema. NEUROLOGICAL: Focused neurological exam showed no significant neurologic deficit. Normal speech, no focal weakness appreciated. PSYCH: Normal mood, normal affect. Judgment and insight within normal limits. SKIN: No significant ecchymosis, rash, ulcerations noted right lower leg covered with a bandage but no signs of pruritus noted. MUSCULOSKELETAL EXAM: No significant joint swelling noted. Results Laboratory Results: 06/05/16 04:05 06/05/16 04:05 06/05/16 06/05/16 06/05/16 04:05 04:05 04:05 WBC 9.9 RBC 3.97 Hgb 8.7 L Hct 28.8 L MCV 73 L MCH 22.0 L MCHC 30.2 L RDW 18.1 H Plt Count 333 Seg Neutrophils % 79.7 H Lymphocytes % 9.6 L Monocytes % 9.4 Eosinophils % 1.1 Basophils % 0.2 Absolute Neutrophils 7.8 Absolute Lymphocytes 0.9 Absolute Monocytes 0.9 Absolute Eosinophils 0.1 Absolute Basophils 0.0 Sodium 140.0 Potassium 4.7 Chloride 91 L Carbon Dioxide 39 H Anion Gap 10 BUN 17 Creatinine 0.65 Est GFR ( Amer) > 60 Est GFR (Non-Af Amer) > 60 Glucose 93 Calcium 8.7 Magnesium 2.1 TSH 3.72 06/03/16 09:48 NT-Pro-B Natriuret Pep 598 H Impressions: Chest X-Ray 05/31/16 17:04 IMPRESSION: NO ACUTE CARDIOPULMONARY PROCESS. Assessment & Plan - Diagnosis (1) Acute respiratory failure with hypoxia and hypercarbia Is this a current diagnosis for this admission?: Yes (2) Atrial fibrillation Qualifiers: Atrial fibrillation type: unspecified Qualified Code(s): I48.91 - Unspecified atrial fibrillation Is this a current diagnosis for this admission?: Yes (3) Morbid obesity with BMI of 60.0-69.9, adult Is this a current diagnosis for this admission?: Yes (4) Congestive heart failure (CHF) Qualifiers: Congestive heart failure type: diastolic Is this a current diagnosis for this admission?: Yes (5) Obstructive sleep apnea Is this a current diagnosis for this admission?: Yes (6) Sleep related hypoventilation/hypoxemia in other disease Is this a current diagnosis for this admission?: Yes - Notes Notes: Congestive heart failure: This is predominantly right-sided. 2-D echo shows moderate enlargement of the right ventricle with moderately depressed right ventricular ejection fraction. In addition patient noted to have severe pulmonary hypertension. This is most likely secondary to obesity hypoventilation syndrome, chronic hypoxemia related. IV diuretic dose is being increased to Lasix 40 mg intravenously twice a day. Patient will also benefit from chronic anticoagulation however there may be some contraindication. Patient tells me that she is on chronic bilevel therapy and also chronic oxygen supplementation. This is being arranged through [facility]. It seems patient's primary care M.D. has discontinued taking care of this patient. Obstructive sleep apnea: Patient currently on nasal oxygen and uses nightly bilevel therapy. Sleep related hypoventilation/hypoxemia, hypercarbia: Patient will benefit from continued noninvasive positive pressure ventilation. This therapy is being continued. Atrial fibrillation: This is chronic. Recommend rate control and chronic anticoagulation. Heart rate is well controlled. However patient currently not on chronic anticoagulation. Patient does have a history of menorrhagia. Will discuss anticoagulation issue with the patient tomorrow Obesity: Patient will benefit from weight loss. This was explained to the patient. Patient does not want to consider any obesity surgery. Will continue to follow this patient. - Time Time with patient: Greater than 35 minutes - CODE STATUS was discussed, patient remains full code. Surrogate decision-maker unchanged. Multiple medical problems were addressed.More than 50% of the time spent coordinating care, discussing management plans with involved caregivers. Management plans discussed with involved personnels. Medical decision making was of moderate to high complexity, patient's has multiple severe comorbidities. Medications reviewed and adjusted accordingly: Yes
[2016-06-06] MEDS: ACETAMINOPHEN 325 MG TABLET PO PRN (01:13)
[2016-06-06] MEDS: HEPARIN SOD (PORCINE) 5,000 UNIT/ML 1 ML SYRINGE SUBCUT SCH ×3 (06:38→22:38)
[2016-06-06] MEDS: CLOTRIMAZOLE 1% CREAM 15 GM TP SCH ×3 (06:38→22:37)
[2016-06-06] MEDS: FUROSEMIDE INJ/PF 20 MG/2 ML SDV IV SCH ×2 (06:38→17:22)
[2016-06-06] MEDS: SULFAMETHOXAZOLE/TRIMETHOPRIM 800-160 MG TABLET PO SCH ×2 (06:38→17:22)
[2016-06-06] MEDS: IPRATROPIUM/ALBUTEROL 0.5-2.5 MG/3 ML AMPUL NEB SCH ×3 (07:44→20:35)
--- NOTE | 2016-06-06 09:52 | PDOC PROGRESS REPORT ---
Subjective Progress Note for:: 06/06/16 Subjective:: This is a follow-up visit for acute on chronic respiratory failure. Patient questions as to why it's hard for her to breathe when getting in and out of bed. I have briefly reviewed with her her shortness of breath and acute on chronic respiratory failure is due to her morbid obesity, pulmonary hypertension , diastolic and systolic heart failure, volume overload, chronic atrial fibrillation. I have also reiterated that I believe she needs time in subacute rehabilitation. Patient is agreeable at this time. She complains of some abdominal wall pain when moving around or coughing vigorously. Physical Exam Vital Signs: Temp Pulse Resp BP Pulse Ox 98.5 F 88 24 H 125/88 H 95 06/06/16 07:39 06/06/16 07:44 06/06/16 07:44 06/06/16 07:39 06/06/16 07:44 Intake & Output 06/05/16 06/06/16 06/07/16 06:59 06:59 06:59 Intake Total 398 960 Output Total 400 1200 Balance -2 -240 Weight 128 kg 132.5 kg PHYSICAL EXAM: GENERAL: This is a well-developed well-nourished morbidly obese white female resting in her recliner in no acute distress. HEART: Regular rate and rhythm. 1 to 2/6 systolic murmurs. No rubs or gallops. LUNGS: Diminished at the bases bilaterally with equal rise and fall of the chest. ABDOMEN: Soft, nontender, nondistended obese with normoactive bowel sounds EXTREMITIES: No clubbing cyanosis or 4+ edema/lymphedema. peripheral pulses not palpable secondary to body habitus. NEURO: Awake, alert, oriented x-3. Cranial nerves II through XII grossly intact. PSYCH: Patient wants to discuss her feelings about her daughter again today. Results Laboratory Results: 06/05/16 04:05 06/05/16 04:05 05/31/16 23:07 Blood Blood Culture - Final NO GROWTH IN 5 DAYS 05/31/16 21:35 Blood Blood Culture - Final NO GROWTH IN 5 DAYS 06/03/16 09:48 NT-Pro-B Natriuret Pep 598 H Impressions: Chest X-Ray 05/31/16 17:04 IMPRESSION: NO ACUTE CARDIOPULMONARY PROCESS. Assessment & Plan - Diagnosis (1) Acute on chronic respiratory failure with hypercapnia Plan: Multifactorial to include moderate to severe pulmonary hypertension, acute on chronic systolic and diastolic heart failure, restrictive airway disease secondary to morbid obesity, chronic atrial fibrillation. Continue bilevel Pap as needed. There has been some slow improvement. (2) UTI (urinary tract infection) Qualifiers: Urinary tract infection type: acute cystitis Hematuria presence: without hematuria Qualified Code(s): N30.00 - Acute cystitis without hematuria Plan: Continue Bactrim for 7 day course. This is day 4 (3) Morbid obesity with BMI of 60.0-69.9, adult Is this a current diagnosis for this admission?: YesPlan: Weight loss through dietary changes. I would recommend bariatric surgery. (4) Anemia Qualifiers: Anemia type: other cause Other causes of anemia: chronic disease, other Qualified Code(s): D63.8 - Anemia in other chronic diseases classified elsewhere Plan: Stable (5) Depression Plan: TSH ordered Continue Prozac. Psychiatry is following (6) Chronic systolic CHF (congestive heart failure) Plan: Acute on chronic combined diastolic and Systolic heart failure with EF of 35%. Continue Lasix 40 mg IV twice a day (7) Debility Plan: Continue PT. Patient is willing to go to sleep. We'll let discharge planning know. - Time Time Spent with patient: 15-24 minutes - Inpatient Certification Medical Necessity: Need Close Monitoring Due to Risk of Patient Decompensation - We'll see if patient is eligible for SNF Post Hospital Care: D/C Press Helper Documentation
[2016-06-06] MEDS: DIGOXIN 0.125 MG TABLET PO SCH (10:26)
[2016-06-06] MEDS: METOPROLOL SUCCINATE 50 MG TAB.SR.24H PO SCH ×2 (10:26→22:39)
[2016-06-06] MEDS: FLUOXETINE HCL 20 MG CAPSULE PO SCH (10:27)
[2016-06-06] MEDS: DILTIAZEM HCL 180 MG CAPSULE.CR PO SCH ×2 (10:27→22:39)
[2016-06-06] MEDS: FLUTICASONE/SALMETEROL DISKUS 250-50 MCG/DOSE IH SCH ×2 (10:28→22:36)
[2016-06-06] MEDS: DOCUSATE SODIUM 100 MG CAPSULE PO SCH ×2 (10:29→17:28)
[2016-06-06] MEDS: NYSTATIN CREAM 15 GM TP SCH ×2 (10:29→17:26)
--- NOTE | 2016-06-06 11:43 | PDOC CONSULTATION ---
Consultation Consult Date: 06/06/16 Attending physician:: EDUARDO MARRERO Consult reason:: Fatigue, anemia History of Present Illness Admission Date/PCP: 05/31/16 19:30 BENY ESQUIVEL MD Patient complains of: Fatigue, anemia History of Present Illness: 50-year-old female with multiple medical problems including CHF, obesity hypoventilation syndrome, who does have history of chronic anemia in the past. She was seeing hematology, Dr. Connelly, and actually had received iron transfusions as recently as 2013. But she hasn't seen her printmaker in a while. She came in with signs and symptoms of CHF exacerbation, and upon admission her hemoglobin was in the 8 range, MCV 73, she has been treated for exacerbation up till now. She does have some faint history of vaginal bleeding , but she is a poor historian. We will plan on doing stool Hemoccult today as well. I spoke with cardiology was considering putting patient on anticoagulation for A. fib. We certainly meets delineate whether she is bleeding or not prior to this. Past Medical History Cardiac Medical History: Reports: Atrial Fibrillation, Coronary Artery Disease, Hyperlipidema, Hypertension Denies: Myocardial Infarction Pulmonary Medical History: Reports: Asthma, Chronic Obstructive Pulmonary Disease (COPD), Respiratory Failure, Sleep Apnea Denies: Bronchitis, Pneumonia, Tuberculosis Neurological Medical History: Reports: Migraine Denies: Seizures Musculoskeltal Medical History: Reports: Arthritis Psychiatric Medical History: Reports: Depression Hematology: Reports: Anemia Past Surgical History Past Surgical History: Reports: Section Denies: Hysterectomy Social History Lives with: Family Smoking Status: Former Smoker Frequency of Alcohol Use: None Hx Recreational Drug Use: No Drugs: None Hx Prescription Drug Abuse: No - Advance Directive Resuscitation Status: Full Code Family History Family History: Reviewed & Not Pertinent, Hypertension Parental Family History Reviewed: Yes Children Family History Reviewed: Yes Sibling(s) Family History Reviewed.: Yes Medication/Allergy Home Medications: Albuterol Sulfate [Proair HFA] 2 puff IH Q6 06/01/16 Clotrimazole [Athletic Foot Cream] 1 applic TP TID 06/01/16 Digoxin [Lanoxin 0.125 mg Tablet] 0.125 mg PO DAILY 06/01/16 Diltiazem HCl [Diltiazem ER] 180 mg PO Q12 06/01/16 Fluoxetine HCl [Prozac] 40 mg PO DAILY 06/01/16 Fluticasone/Salmeterol [Advair 250-50 Diskus 14 Dose/Diskus] 1 inh IH Q12 Furosemide [Lasix] 20 mg PO QHS 06/01/16 Furosemide [Lasix] 60 mg PO QAM 06/01/16 Lisinopril [Prinivil 2.5 mg Tablet] 2.5 mg PO DAILY 06/01/16 Metoprolol Succinate [Toprol Xl 50 mg Tab.sr] 50 mg PO Q12 06/01/16 Nystatin [Nyata] 15 gm TP BID 06/01/16 Allergies/Adverse Reactions: budesonide [From Pulmicort] Allergy (Unknown, Verified 06/01/16 00:36) amoxicillin trihydrate [From Augmentin] Allergy (Verified 06/01/16 00:36) brompheniramine maleate [From Dimetapp] Allergy (Verified 06/01/16 00:36) dextromethorphan HBr [From Dimetapp] Allergy (Verified 06/01/16 00:36) phenylpropanolamine HCl [From Dimetapp] Allergy (Verified 06/01/16 00:36) Potassium Clavulanate * [From Augmentin] Allergy (Verified 06/01/16 00:36) pseudoephedrine HCl [From Dimetapp] Allergy (Verified 06/01/16 00:36) tetracycline [Tetracycline] Allergy (Verified 06/01/16 00:36) epinephrine [From Primatene Mist] Adverse Reaction (Verified 06/01/16 00:36) Difficulty breathing Review of Systems Constitutional: ABSENT: chills, fever(s), headache(s), weight gain, weight loss Eyes: ABSENT: visual disturbances Ears: ABSENT: hearing changes Cardiovascular: ABSENT: chest pain, dyspnea on exertion, edema, orthropnea, palpitations Respiratory: ABSENT: cough, hemoptysis Gastrointestinal: ABSENT: abdominal pain, constipation, diarrhea, hematemesis, hematochezia, nausea, vomiting Genitourinary: ABSENT: dysuria, hematuria Musculoskeletal: ABSENT: joint swelling Integumentary: ABSENT: rash, wounds Neurological: ABSENT: abnormal gait, abnormal speech, confusion, dizziness, focal weakness, syncope Psychiatric: ABSENT: anxiety, depression, homidical ideation, suicidal ideation Endocrine: ABSENT: cold intolerance, heat intolerance, polydipsia, polyuria Hematologic/Lymphatic: ABSENT: easy bleeding, easy bruising Physical Exam Vital Signs: Temp Pulse Resp BP Pulse Ox 98.5 F 88 24 H 125/88 H 95 06/06/16 07:39 06/06/16 07:44 06/06/16 07:44 06/06/16 07:39 06/06/16 07:44 Intake & Output 06/05/16 06/06/16 06/07/16 06:59 06:59 06:59 Intake Total 398 960 Output Total 400 1200 Balance -2 -240 Weight 128 kg 132.5 kg General appearance: PRESENT: no acute distress, well-developed, well-nourished Head exam: PRESENT: atraumatic, normocephalic Eye exam: PRESENT: conjunctiva pink, EOMI, PERRLA. ABSENT: scleral icterus Ear exam: PRESENT: normal external ear exam Mouth exam: PRESENT: moist, tongue midline Neck exam: ABSENT: carotid bruit, JVD, lymphadenopathy, thyromegaly Respiratory exam: PRESENT: clear to auscultation noel. ABSENT: rales, rhonchi, wheezes Cardiovascular exam: PRESENT: RRR. ABSENT: diastolic murmur, rubs, systolic murmur Pulses: PRESENT: normal dorsalis pedis pul Vascular exam: PRESENT: normal capillary refill GI/Abdominal exam: PRESENT: normal bowel sounds, soft. ABSENT: distended, guarding, mass, organolmegaly, rebound, tenderness Rectal exam: PRESENT: deferred Extremities exam: PRESENT: full ROM. ABSENT: calf tenderness, clubbing, pedal edema Neurological exam: PRESENT: alert, awake, oriented to person, oriented to place , oriented to time, oriented to situation, CN II-XII grossly intact. ABSENT: motor sensory deficit Psychiatric exam: PRESENT: appropriate affect, normal mood. ABSENT: homicidal ideation, suicidal ideation Skin exam: PRESENT: dry, intact, warm. ABSENT: cyanosis, rash Results Laboratory Results: 06/05/16 04:05 06/05/16 04:05 05/31/16 23:07 Blood Blood Culture - Final NO GROWTH IN 5 DAYS 05/31/16 21:35 Blood Blood Culture - Final NO GROWTH IN 5 DAYS 06/03/16 09:48 NT-Pro-B Natriuret Pep 598 H Impressions: Chest X-Ray 05/31/16 17:04 IMPRESSION: NO ACUTE CARDIOPULMONARY PROCESS. Assessment & Plan - Diagnosis (1) Anemia Qualifiers: Anemia type: other cause Other causes of anemia: chronic disease, other Qualified Code(s): D63.8 - Anemia in other chronic diseases classified elsewhere Is this a current diagnosis for this admission?: YesPlan: Multifactorial, anemia of chronic disease, as well as likely iron deficiency. We will treat accordingly with IV iron if needed as she is tolerated that well and the past. She probably is a poor oral absorber of iron. We sent stool Hemoccult to evaluate for bleeding as well. - Time Time Spent: 50 to 70 Minutes Critical Time spent with patient: 25-34 minutes - Inpatient Certification Based on my medical assessment, after consideration of the patient's comorbidities, presenting symptoms, or acuity I expect that the services needed warrant INPATIENT care.: Yes I certify that my determination is in accordance with my understanding of Medicare's requirements for reasonable and necessary INPATIENT services [42 CFR 412.3e].: Yes Medical Necessity: Need For Continuous Telemetry Monitoring
--- NOTE | 2016-06-06 12:41 | PDOC PROGRESS REPORT ---
Subjective Progress Note for:: 06/06/16 Subjective:: Patient seems to be doing better with some improvement. Pt is denying any chest arm or neck discomfort. Patient denying any PND, orthopnea. Patient denied any sustained palpitations, dizziness, syncope, near syncope. Patient denying any fever chills. Patient denying any other significant discomfort. Patient claims pedal edema is improved. Today I asked about chronic anti- coagulation. She does not have any opinion about this on her own. Patient claims that she has not had any periods for about a year. There is some history of hemorrhoidal bleeds. Patient denied any recent GI evaluation. Patient was noted to be anemic therefore I have taken the liberty to consult Dr. Spencer who was noted to be on the floor. Patient is maintaining chronic atrial fibrillation. Rate is well controlled. Review of systems: Rest review of systems negative. Medications: Medications have been reviewed. Physical Exam Vital Signs: Temp Pulse Resp BP Pulse Ox 98.5 F 88 24 H 125/88 H 95 06/06/16 07:39 06/06/16 07:44 06/06/16 07:44 06/06/16 07:39 06/06/16 07:44 Intake & Output 06/05/16 06/06/16 06/07/16 06:59 06:59 06:59 Intake Total 398 960 Output Total 400 1200 Balance -2 -240 Weight 128 kg 132.5 kg Exam: GENERAL: well-nourished and in no acute distress. Alert and oriented x3 HEAD: Atraumatic, normocephalic. EYES: Pupils equal round and reactive to light, extraocular movements intact, sclera anicteric, conjunctiva are normal. ENT: TMs normal, nares patent, oropharynx clear without exudates. Moist mucous membranes. No oral ulcerations or bleeding gums noted NECK: supple without lymphadenopathy. Trachea is central. No cervical or axillary lymphadenopathy noted. Carotids are 2+, JVD 8-10 CM LUNGS: Respiration seems nonlabored, no significant accessory muscle action noted. Bibasilar fine crackles and occasional wheezing are noted. No significant dullness noted on percussion. CHEST: Palpation of the chest wall shows no significant chest wall tenderness. No other significant abnormalities noted. HEART: [employer] CHEF, No PSH, 1/6 DAMIEN aortic area, 1/6 araujo systolic murmur mitral area, no rubs, no gallops. ABDOMEN: Soft, no significant tenderness appreciated, normoactive bowel sounds. No guarding, no rebound. No rigidity noted . No masses appreciated. EXTREMITIES: Pedal pulses are 1-2+, no calf tenderness noted. No clubbing or cyanosis.3 + pedal edema noted, again mostly lymphedema. NEUROLOGICAL: Focused neurological exam showed no significant neurologic deficit. Normal speech, no focal weakness appreciated. PSYCH: Normal mood, normal affect. Judgment and insight within normal limits. SKIN: No significant ecchymosis, rash, superficial ulcerations noted right lower leg but no signs of pruritus noted, no signs of infection noted. MUSCULOSKELETAL EXAM: No significant joint swelling noted. Results Laboratory Results: 06/05/16 04:05 06/05/16 04:05 05/31/16 23:07 Blood Blood Culture - Final NO GROWTH IN 5 DAYS 05/31/16 21:35 Blood Blood Culture - Final NO GROWTH IN 5 DAYS 06/03/16 09:48 NT-Pro-B Natriuret Pep 598 H Impressions: Chest X-Ray 05/31/16 17:04 IMPRESSION: NO ACUTE CARDIOPULMONARY PROCESS. Assessment & Plan - Diagnosis (1) Acute respiratory failure with hypoxia and hypercarbia Is this a current diagnosis for this admission?: Yes (2) Atrial fibrillation Qualifiers: Atrial fibrillation type: unspecified Qualified Code(s): I48.91 - Unspecified atrial fibrillation Is this a current diagnosis for this admission?: Yes (3) Morbid obesity with BMI of 60.0-69.9, adult Is this a current diagnosis for this admission?: Yes (4) Congestive heart failure (CHF) Qualifiers: Congestive heart failure type: diastolic Is this a current diagnosis for this admission?: Yes (5) Obstructive sleep apnea Is this a current diagnosis for this admission?: Yes (6) Sleep related hypoventilation/hypoxemia in other disease Is this a current diagnosis for this admission?: Yes - Notes Notes: Respiratory failure: Patient has compensated respiratory failure with hypercarbia and also hypoxemia. Patient will benefit from noninvasive positive pressure ventilation which she is on. Patient would also benefit from regular follow-up with a inspector multifocal lens. Atrial fibrillation: Rate is well controlled. We are trying to make a decision about chronic anticoagulation. Based on patient's chads score there is certainly benefit to be obtained. We are trying to figure out her risk. Morbid obesity: Patient has been encouraged in weight loss. CHF: This is improved. Patient predominantly has right-sided CHF. Will order a BNP level for tomorrow will also check a 12-lead EKG. Obstructive sleep apnea: Patient to have nightly positive pressure ventilation noninvasively. Obesity hypoventilation syndrome: Is chronic condition. Continue with positive pressure ventilation. Patient has been encouraged to lose weight. - Time Time with patient: 15-25 minutes - CODE STATUS was discussed, patient remains full code. Surrogate decision-maker unchanged. Multiple medical problems were addressed.More than 50% of the time spent coordinating care, discussing management plans with involved caregivers. Management plans discussed with involved personnels. Medical decision making was of moderate to high complexity , patient's has multiple severe comorbidities.
[2016-06-07] MEDS: ACETAMINOPHEN 325 MG TABLET PO PRN ×4 (01:04→23:54)
[2016-06-07] MEDS: SULFAMETHOXAZOLE/TRIMETHOPRIM 800-160 MG TABLET PO SCH ×2 (05:50→17:30)
[2016-06-07] MEDS: FUROSEMIDE INJ/PF 20 MG/2 ML SDV IV SCH (05:50)
[2016-06-07] MEDS: HEPARIN SOD (PORCINE) 5,000 UNIT/ML 1 ML SYRINGE SUBCUT SCH (05:50)
[2016-06-07] MEDS: CLOTRIMAZOLE 1% CREAM 15 GM TP SCH ×3 (05:51→21:26)
--- NOTE | 2016-06-07 07:57 | PDOC PROGRESS REPORT ---
Subjective Progress Note for:: 06/07/16 Subjective:: no acute events overnight, no labs could be drawn this am so I don't have iron studies or B12 levels back. The stool hemocult was negative. Physical Exam Vital Signs: Temp Pulse Resp BP Pulse Ox 97.5 F 76 27 H 124/75 94 06/07/16 03:23 06/07/16 03:23 06/07/16 04:30 06/07/16 03:23 06/07/16 04:30 Intake & Output 06/06/16 06/07/16 06/08/16 06:59 06:59 06:59 Intake Total 960 2580 Output Total 1200 1100 Balance -240 1480 Weight 132.5 kg 139.8 kg General appearance: PRESENT: no acute distress, well-developed, well-nourished Head exam: PRESENT: atraumatic, normocephalic Eye exam: PRESENT: conjunctiva pink, EOMI, PERRLA. ABSENT: scleral icterus Ear exam: PRESENT: normal external ear exam Mouth exam: PRESENT: moist, tongue midline Neck exam: ABSENT: carotid bruit, JVD, lymphadenopathy, thyromegaly Respiratory exam: PRESENT: clear to auscultation noel. ABSENT: rales, rhonchi, wheezes Cardiovascular exam: PRESENT: RRR. ABSENT: diastolic murmur, rubs, systolic murmur Pulses: PRESENT: normal dorsalis pedis pul Vascular exam: PRESENT: normal capillary refill GI/Abdominal exam: PRESENT: normal bowel sounds, soft. ABSENT: distended, guarding, mass, organolmegaly, rebound, tenderness Rectal exam: PRESENT: deferred Extremities exam: PRESENT: full ROM. ABSENT: calf tenderness, clubbing, pedal edema Neurological exam: PRESENT: alert, awake, oriented to person, oriented to place , oriented to time, oriented to situation, CN II-XII grossly intact. ABSENT: motor sensory deficit Psychiatric exam: PRESENT: appropriate affect, normal mood. ABSENT: homicidal ideation, suicidal ideation Skin exam: PRESENT: dry, intact, warm. ABSENT: cyanosis, rash Results Laboratory Results: 06/05/16 04:05 06/05/16 04:05 06/06/16 13:15 Stool Occult Blood NEGATIVE 06/03/16 09:48 NT-Pro-B Natriuret Pep 598 H Impressions: Chest X-Ray 05/31/16 17:04 IMPRESSION: NO ACUTE CARDIOPULMONARY PROCESS. Assessment & Plan - Diagnosis (1) Anemia Qualifiers: Anemia type: other cause Other causes of anemia: chronic disease, other Qualified Code(s): D63.8 - Anemia in other chronic diseases classified elsewhere Is this a current diagnosis for this admission?: YesPlan: Multifactorial, iron and b12 levels pending, will see pt next when I have those levels. Stool heme negative so if cardiology feels that anticoagulation needed, this is ok from hematologic standpoint. - Time Time Spent with patient: 15-24 minutes Critical Time spent with patient: 15-24 minutes
[2016-06-07] MEDS: IPRATROPIUM/ALBUTEROL 0.5-2.5 MG/3 ML AMPUL NEB SCH ×3 (08:06→19:48)
[2016-06-07 08:25] LABS: ABSOLUTE BASOPHILS # (AUTO) 0.1 10^3/uL (0.0-0.2); ABSOLUTE EOSINOPHILS # (AUTO) 0.1 10^3/uL (0.0-0.6); ABSOLUTE LYMPHOCYTES (AUTO) 0.9 10^3/uL (0.5-4.7); ABSOLUTE MONOCYTES (AUTO) 0.8 10^3/uL (0.1-1.4); ABSOLUTE NEUT (AUTO) 9.2 10^3/uL (1.7-8.2); BASOPHILS % (AUTO) 0.5 % (0-2); HEMATOCRIT 32.8 % (36.0-47.0); HEMOGLOBIN 9.8 g/dL (12.0-15.5); HGB HCT DIFFERENCE -3.4; MEAN CORPUSCULAR HEMOGLOBIN 21.6 pg (27.0-33.4); MEAN CORPUSCULAR HGB CONC 29.8 g/dL (32.0-36.0); MEAN CORPUSCULAR VOLUME 72 fl (80-97); MONOCYTES % (AUTO) 7.6 % (3-13); RED BLOOD COUNT 4.53 10^6/uL (3.72-5.28); RED CELL DISTRIBUTION WIDTH 18.1 % (11.5-14.0); SEGMENTED NEUTROPHILS % (AUTO) 82.9 % (42-78); WHITE BLOOD COUNT 11.1 10^3/uL (4.0-10.5)
[2016-06-07 08:47] LABS: BLOOD UREA NITROGEN 23 mg/dL (7-20); CALCIUM 8.9 mg/dL (8.4-10.2); CHLORIDE 87 mmol/L (98-107); CREATININE RESULT 0.71 mg/dL (0.52-1.25); GLUCOSE 99 mg/dL (75-110); POTASSIUM 4.2 mmol/L (3.6-5.0); SODIUM 141.6 mmol/L (137-145)
[2016-06-07] MEDS: METOPROLOL SUCCINATE 50 MG TAB.SR.24H PO SCH ×2 (08:47→21:26)
[2016-06-07] MEDS: FLUTICASONE/SALMETEROL DISKUS 250-50 MCG/DOSE IH SCH ×2 (08:48→21:26)
[2016-06-07] MEDS: FLUOXETINE HCL 20 MG CAPSULE PO SCH (08:48)
[2016-06-07] MEDS: DILTIAZEM HCL 180 MG CAPSULE.CR PO SCH ×2 (08:48→21:25)
[2016-06-07] MEDS: DOCUSATE SODIUM 100 MG CAPSULE PO SCH ×2 (08:49→19:25)
[2016-06-07] MEDS: DIGOXIN 0.125 MG TABLET PO SCH (08:49)
[2016-06-07] MEDS: NYSTATIN CREAM 15 GM TP SCH ×2 (08:50→17:32)
[2016-06-07 08:54] LABS: ANION GAP 15 (5-19)
[2016-06-07 09:02] LABS: CARBON DIOXIDE 40 mmol/L (22-30)
--- NOTE | 2016-06-07 09:36 | PDOC PROGRESS REPORT ---
Subjective Progress Note for:: 06/07/16 Subjective:: This is a follow-up visit for acute on chronic respiratory failure. The patient was admitted last week with hypercapnic respiratory distress from multiple etiologies. She has been on and off of bilevel Pap here. She usually lives on off bilevel Pap. She is morbidly obese with difficulty relating largely noncompliant. Since she has been here she's made improvement with her wheezing and is able to remain off of bilevel Pap extended periods of time. Cardiology has followed her because of underlying heart failure and atrial fibrillation. She is also seeing hematology service for chronic anemia. She services also been by to see her for depression and lack of motivation towards medical compliance enterally caring for herself. Currently she lives at home with her daughter and receives assistance from home health and is part of the [facility] Program. Have discussed her feelings about her weight repeatedly, about her compliance with BiPAP and most recently about bariatric surgery. The patient has agreed for subacute rehabilitation. At this point she is waiting for placement. She currently has few complaints. She still has a bit of discomfort abdominal wall when getting up and down from the bed. Physical Exam Vital Signs: Temp Pulse Resp BP Pulse Ox 98.0 F 74 24 H 133/76 H 92 06/07/16 07:28 06/07/16 07:28 06/07/16 07:28 06/07/16 07:28 06/07/16 07:28 Intake & Output 06/06/16 06/07/16 06/08/16 06:59 06:59 06:59 Intake Total 960 2580 Output Total 1200 1100 Balance -240 1480 Weight 132.5 kg 139.8 kg PHYSICAL EXAM: GENERAL: This is a well-developed well-nourished morbidly obese white female resting in her recliner in no acute distress. HEART: Regular rate and rhythm. No murmur heard today. No rubs or gallops. LUNGS: Diminished at the bases bilaterally with equal rise and fall of the chest. ABDOMEN: Soft, nontender, nondistended obese with normoactive bowel sounds EXTREMITIES: No clubbing cyanosis or 4+ edema/lymphedema. peripheral pulses not palpable secondary to body habitus. NEURO: Awake, alert, oriented x-3. Cranial nerves II through XII grossly intact. PSYCH: Patient wants to discuss her feelings about her daughter again today. She feels that her daughter has written her off. He agrees that they need family counseling. Results Laboratory Results: 06/07/16 07:55 06/07/16 07:55 06/06/16 06/07/16 06/07/16 13:15 07:55 07:55 WBC 11.1 H RBC 4.53 Hgb 9.8 L Hct 32.8 L MCV 72 L MCH 21.6 L MCHC 29.8 L RDW 18.1 H Plt Count 393 Seg Neutrophils % 82.9 H Lymphocytes % 8.0 L Monocytes % 7.6 Eosinophils % 1.0 Basophils % 0.5 Absolute Neutrophils 9.2 H Absolute Lymphocytes 0.9 Absolute Monocytes 0.8 Absolute Eosinophils 0.1 Absolute Basophils 0.1 Retic Count (auto) 2.07 Absolute Retic 0.094 Sodium 141.6 Potassium 4.2 Chloride 87 L Carbon Dioxide 40 H* Anion Gap 15 BUN 23 H Creatinine 0.71 Est GFR ( Amer) > 60 Est GFR (Non-Af Amer) > 60 Glucose 99 Calcium 8.9 Magnesium 2.0 Iron < 10.1 L TIBC 376 % Saturation UNABLE TO CALCULATE Stool Occult Blood NEGATIVE 06/03/16 06/07/16 09:48 07:55 NT-Pro-B Natriuret Pep 598 H 955 H Impressions: Chest X-Ray 05/31/16 17:04 IMPRESSION: NO ACUTE CARDIOPULMONARY PROCESS. Assessment & Plan - Diagnosis (1) Acute on chronic respiratory failure with hypercapnia Plan: Multifactorial to include moderate to severe pulmonary hypertension, acute on chronic systolic and diastolic heart failure, restrictive airway disease secondary to morbid obesity, chronic atrial fibrillation, and anemia. Continue bilevel Pap as needed. There has been some slow improvement. (2) UTI (urinary tract infection) Qualifiers: Urinary tract infection type: acute cystitis Hematuria presence: without hematuria Qualified Code(s): N30.00 - Acute cystitis without hematuria Plan: Continue Bactrim for 7 day course. This is day 5 (3) Morbid obesity with BMI of 60.0-69.9, adult Plan: Weight loss through dietary changes. I would recommend bariatric surgery. At discharge I recommend she follow-up with [facility] and see Dr. Deshaun Flynn for evaluation for bariatric surgery. The patient has been through screening twice before according to her report. This was done a [facility] (4) Anemia Qualifiers: Anemia type: other cause Other causes of anemia: chronic disease, other Qualified Code(s): D63.8 - Anemia in other chronic diseases classified elsewhere Plan: Stable. Current hemoglobin is 9. Hematology was consultative. Hemoccult of stools are negative. Monitor H&H while on eliquis (5) Depression Plan: TSH ordered and collected. Lab results are pending today. Continue Prozac. Psychiatry is following (6) Chronic systolic CHF (congestive heart failure) Plan: Acute on chronic combined diastolic and Systolic heart failure with EF of 35%. Continue Lasix 40 mg IV twice a day. Comfort to by mouth in a.m. Cardiology following. (7) Atrial fibrillation Qualifiers: Atrial fibrillation type: unspecified Qualified Code(s): I48.91 - Unspecified atrial fibrillation Plan: Patient is rate controlled. She is currently on prophylactic doses of heparin. We will discontinue this and start eliquis 5 mg by mouth twice a day (8) Debility Plan: Consult PT. Patient is willing to go SNF. We'll let discharge planning know. - Time Time Spent with patient: 15-24 minutes Anticipated discharge: SNF - Inpatient Certification Medical Necessity: Need Close Monitoring Due to Risk of Patient Decompensation
[2016-06-07] MEDS ORDERED: ONDANSETRON HCL INJ/PF 4 MG/2 ML SDV IV PRN (09:40)
[2016-06-07] MEDS ORDERED: MAG HYDROX/AL HYDROX/SIMETH SUSP 30 ML UDCUP PO PRN (09:42)
[2016-06-07] MEDS: APIXABAN 5 MG TABLET PO SCH ×2 (09:51→17:31)
[2016-06-07 10:31] LABS: FREE T3 3.88 pg/mL (2.77-5.27)
[2016-06-07 10:45] LABS: THYROID STIMULATING HORMONE 5.72 uIU/mL (0.47-4.68)
--- NOTE | 2016-06-07 10:45 | EKG REPORT ---
SEVERITY:- ABNORMAL ECG - ATRIAL FIBRILLATION, V-RATE 69-83 VENTRICULAR PREMATURE COMPLEX ABNORMAL T, CONSIDER ISCHEMIA, LATERAL LEADS : Confirmed by: Yulissa Mondragon 07-Jun-2016 10:44:52
--- NOTE | 2016-06-07 11:24 | PDOC PROGRESS REPORT ---
Subjective Progress Note for:: 06/07/16 Subjective:: I am okay Physical Exam Vital Signs: Temp Pulse Resp BP Pulse Ox 98.0 F 82 20 133/76 H 88 L 06/07/16 07:28 06/07/16 08:06 06/07/16 08:06 06/07/16 07:28 06/07/16 08:06 Intake & Output 06/06/16 06/07/16 06/08/16 06:59 06:59 06:59 Intake Total 960 2580 Output Total 1200 1100 Balance -240 1480 Weight 132.5 kg 139.8 kg General appearance: PRESENT: no acute distress, cooperative, disheveled, morbidly obese Head exam: PRESENT: atraumatic, normocephalic Eye exam: PRESENT: conjunctiva pale, EOMI Mouth exam: PRESENT: moist, neck supple Neck exam: ABSENT: carotid bruit, JVD, lymphadenopathy, thyromegaly Respiratory exam: PRESENT: decreased breath sounds, prolonged expiratory phas, symmetrical, unlabored Cardiovascular exam: PRESENT: RRR, +S1, +S2 Pulses: PRESENT: normal radial pulses GI/Abdominal exam: PRESENT: normal bowel sounds, soft, other - Morbidly obese. ABSENT: distended, guarding, mass, organolmegaly, rebound, tenderness Rectal exam: PRESENT: deferred Gentrourinary exam: PRESENT: indwelling catheter Extremities exam: PRESENT: +2 edema Neurological exam: PRESENT: alert, awake Psychiatric exam: PRESENT: normal mood Skin exam: PRESENT: dry, warm Results Laboratory Results: 06/07/16 07:55 06/07/16 07:55 06/06/16 06/07/16 06/07/16 13:15 07:55 07:55 WBC 11.1 H RBC 4.53 Hgb 9.8 L Hct 32.8 L MCV 72 L MCH 21.6 L MCHC 29.8 L RDW 18.1 H Plt Count 393 Seg Neutrophils % 82.9 H Lymphocytes % 8.0 L Monocytes % 7.6 Eosinophils % 1.0 Basophils % 0.5 Absolute Neutrophils 9.2 H Absolute Lymphocytes 0.9 Absolute Monocytes 0.8 Absolute Eosinophils 0.1 Absolute Basophils 0.1 Retic Count (auto) 2.07 Absolute Retic 0.094 Sodium 141.6 Potassium 4.2 Chloride 87 L Carbon Dioxide 40 H* Anion Gap 15 BUN 23 H Creatinine 0.71 Est GFR ( Amer) > 60 Est GFR (Non-Af Amer) > 60 Glucose 99 Calcium 8.9 Magnesium 2.0 Iron < 10.1 L TIBC 376 % Saturation UNABLE TO CALCULATE Ferritin 15.30 Vitamin B12 549.0 Folate 13.30 TSH Free T4 Free T3 pg/mL Stool Occult Blood NEGATIVE 06/07/16 07:55 WBC RBC Hgb Hct MCV MCH MCHC RDW Plt Count Seg Neutrophils % Lymphocytes % Monocytes % Eosinophils % Basophils % Absolute Neutrophils Absolute Lymphocytes Absolute Monocytes Absolute Eosinophils Absolute Basophils Retic Count (auto) Absolute Retic Sodium Potassium Chloride Carbon Dioxide Anion Gap BUN Creatinine Est GFR ( Amer) Est GFR (Non-Af Amer) Glucose Calcium Magnesium Iron TIBC % Saturation Ferritin Vitamin B12 Folate TSH 5.72 H Free T4 1.12 Free T3 pg/mL 3.88 Stool Occult Blood 06/03/16 06/07/16 09:48 07:55 NT-Pro-B Natriuret Pep 598 H 955 H Impressions: Chest X-Ray 05/31/16 17:04 IMPRESSION: NO ACUTE CARDIOPULMONARY PROCESS. Assessment & Plan - Diagnosis (1) Anemia Qualifiers: Anemia type: other cause Other causes of anemia: chronic disease, other Qualified Code(s): D63.8 - Anemia in other chronic diseases classified elsewhere Is this a current diagnosis for this admission?: Yes (2) Morbid obesity with BMI of 60.0-69.9, adult Is this a current diagnosis for this admission?: Yes (3) COPD (chronic obstructive pulmonary disease) Qualifiers: COPD type: unspecified COPD Qualified Code(s): J44.9 - Chronic obstructive pulmonary disease, unspecified Is this a current diagnosis for this admission?: Yes (4) Obstructive sleep apnea Is this a current diagnosis for this admission?: Yes (5) Obesity hypoventilation syndrome Is this a current diagnosis for this admission?: YesPlan: persistant hypercapnia
[2016-06-07] MEDS: FUROSEMIDE INJ/PF 40 MG/4 ML SDV IV SCH (18:29)
--- NOTE | 2016-06-07 20:33 | PDOC PROGRESS REPORT ---
Subjective Progress Note for:: 06/07/16 Subjective:: Patient seems to be doing better with some gradual but definite improvement. Pt is denying any chest arm or neck discomfort. Patient denying any PND, orthopnea. Patient denied any sustained palpitations, dizziness, syncope, near syncope. Patient denying any fever chills. Patient denying any other significant discomfort. Patient claims pedal edema is improved. Patient was seen by vacuum evaporation operator. His stool guaiacs were negative. Patient therefore after discussion with Dr. Lobo was started on ELIQUIS at 5 mg by mouth twice a day. Twelve-lead EKG obtained shows Patient is maintaining chronic atrial fibrillation. Rate is well controlled. Review of systems: Rest review of systems negative. Medications: Medications have been reviewed. Physical Exam Vital Signs: Temp Pulse Resp BP Pulse Ox 98.9 F 73 22 H 148/81 H 92 06/07/16 19:39 06/07/16 19:39 06/07/16 19:39 06/07/16 19:39 06/07/16 19:39 Intake & Output 06/06/16 06/07/16 06/08/16 06:59 06:59 06:59 Intake Total 960 2580 992 Output Total 1200 1100 400 Balance -240 1480 592 Weight 132.5 kg 139.8 kg Exam: GENERAL: well-nourished and in no acute distress. Alert and oriented x3 HEAD: Atraumatic, normocephalic. EYES: Pupils equal round and reactive to light, extraocular movements intact, sclera anicteric, conjunctiva are normal. ENT: TMs normal, nares patent, oropharynx clear without exudates. Moist mucous membranes. No oral ulcerations or bleeding gums noted NECK: supple without lymphadenopathy. Trachea is central. No cervical or axillary lymphadenopathy noted. Carotids are 2+, JVD 8 CM LUNGS: Respiration seems nonlabored, no significant accessory muscle action noted. Few bibasilar crackles noted. Rare wheezing noted. CHEST: Palpation of the chest wall shows no significant chest wall tenderness. No other significant abnormalities noted. 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 ABDOMEN: Soft, no significant tenderness appreciated, normoactive bowel sounds. No guarding, no rebound. No rigidity noted . No masses appreciated. EXTREMITIES: Pedal pulses are 1-2+, no calf tenderness noted. No clubbing or cyanosis.2-3+ chronic lymphedema and pedal edema noted NEUROLOGICAL: Focused neurological exam showed no significant neurologic deficit. Normal speech, no focal weakness appreciated. PSYCH: Normal mood, normal affect. Judgment and insight within normal limits. SKIN: No significant ecchymosis, rash, superficial ulcerations noted right lower extremity. MUSCULOSKELETAL EXAM: No significant joint swelling noted. Results Laboratory Results: 06/07/16 07:55 06/07/16 07:55 06/07/16 06/07/16 06/07/16 07:55 07:55 07:55 WBC 11.1 H RBC 4.53 Hgb 9.8 L Hct 32.8 L MCV 72 L MCH 21.6 L MCHC 29.8 L RDW 18.1 H Plt Count 393 Seg Neutrophils % 82.9 H Lymphocytes % 8.0 L Monocytes % 7.6 Eosinophils % 1.0 Basophils % 0.5 Absolute Neutrophils 9.2 H Absolute Lymphocytes 0.9 Absolute Monocytes 0.8 Absolute Eosinophils 0.1 Absolute Basophils 0.1 Retic Count (auto) 2.07 Absolute Retic 0.094 Sodium 141.6 Potassium 4.2 Chloride 87 L Carbon Dioxide 40 H* Anion Gap 15 BUN 23 H Creatinine 0.71 Est GFR ( Amer) > 60 Est GFR (Non-Af Amer) > 60 Glucose 99 Calcium 8.9 Magnesium 2.0 Iron < 10.1 L TIBC 376 % Saturation UNABLE TO CALCULATE Ferritin 15.30 Vitamin B12 549.0 Folate 13.30 TSH 5.72 H Free T4 1.12 Free T3 pg/mL 3.88 06/03/16 06/07/16 09:48 07:55 NT-Pro-B Natriuret Pep 598 H 955 H Impressions: Chest X-Ray 05/31/16 17:04 IMPRESSION: NO ACUTE CARDIOPULMONARY PROCESS. Assessment & Plan - Diagnosis (1) Acute respiratory failure with hypoxia and hypercarbia Is this a current diagnosis for this admission?: Yes (2) Atrial fibrillation Qualifiers: Atrial fibrillation type: unspecified Qualified Code(s): I48.91 - Unspecified atrial fibrillation Is this a current diagnosis for this admission?: Yes (3) Morbid obesity with BMI of 60.0-69.9, adult Is this a current diagnosis for this admission?: Yes (4) Congestive heart failure (CHF) Qualifiers: Congestive heart failure type: diastolic Is this a current diagnosis for this admission?: Yes (5) Obstructive sleep apnea Is this a current diagnosis for this admission?: Yes (6) Sleep related hypoventilation/hypoxemia in other disease Is this a current diagnosis for this admission?: Yes - Notes Notes: Acute respiratory failure: With hypoxemia and hypercarbia: Patient seems visibly improved. Atrial fibrillation: Chronic patient started on ELIQUIS therapy. Side effects were discussed. Morbid obesity: Patient to be referred to have a surgical opinion as an outpatient. CHF: Predominantly right-sided. Improved with current diuretic therapy. Continue with this. Obstructive sleep apnea: Patient being managed with nightly bilevel therapy. Sleep-related hypoxemia: Patient on bilevel therapy on nightly basis. - Time Time with patient: 15-25 minutes - CODE STATUS was discussed, patient remains full code. Surrogate decision-maker unchanged. Multiple medical problems were addressed.More than 50% of the time spent coordinating care, discussing management plans with involved caregivers. Management plans discussed with involved personnels. Medical decision making was of moderate to high complexity , patient's has multiple severe comorbidities. Medications reviewed and adjusted accordingly: Yes
[2016-06-08 05:58] LABS: ABSOLUTE BASOPHILS # (AUTO) 0.1 10^3/uL (0.0-0.2); ABSOLUTE EOSINOPHILS # (AUTO) 0.1 10^3/uL (0.0-0.6); ABSOLUTE MONOCYTES (AUTO) 0.9 10^3/uL (0.1-1.4); ABSOLUTE NEUT (AUTO) 7.7 10^3/uL (1.7-8.2); BASOPHILS % (AUTO) 0.5 % (0-2); EOSINOPHILS % (AUTO) 1.3 % (0-6); HEMATOCRIT 28.2 % (36.0-47.0); HEMOGLOBIN 8.6 g/dL (12.0-15.5); HGB HCT DIFFERENCE -2.4; LYMPHOCYTES % (AUTO) 9.8 % (13-45); MEAN CORPUSCULAR HGB CONC 30.7 g/dL (32.0-36.0); MEAN CORPUSCULAR VOLUME 72 fl (80-97); MONOCYTES % (AUTO) 9.5 % (3-13); RED BLOOD COUNT 3.93 10^6/uL (3.72-5.28); RED CELL DISTRIBUTION WIDTH 18.1 % (11.5-14.0); SEGMENTED NEUTROPHILS % (AUTO) 78.9 % (42-78); WHITE BLOOD COUNT 9.8 10^3/uL (4.0-10.5)
[2016-06-08] MEDS: FUROSEMIDE INJ/PF 40 MG/4 ML SDV IV SCH (06:05)
[2016-06-08] MEDS: SULFAMETHOXAZOLE/TRIMETHOPRIM 800-160 MG TABLET PO SCH ×2 (06:05→17:04)
[2016-06-08] MEDS: CLOTRIMAZOLE 1% CREAM 15 GM TP SCH ×3 (06:05→22:31)
[2016-06-08 06:15] LABS: ANION GAP 12 (5-19); BLOOD UREA NITROGEN 27 mg/dL (7-20); CALCIUM 8.7 mg/dL (8.4-10.2); CARBON DIOXIDE 38 mmol/L (22-30); CHLORIDE 90 mmol/L (98-107); CREATININE RESULT 0.76 mg/dL (0.52-1.25); GLUCOSE 94 mg/dL (75-110); POTASSIUM 4.7 mmol/L (3.6-5.0); SODIUM 140.1 mmol/L (137-145)
[2016-06-08] MEDS: IPRATROPIUM/ALBUTEROL 0.5-2.5 MG/3 ML AMPUL NEB SCH ×3 (07:47→19:48)
--- NOTE | 2016-06-08 08:04 | PDOC PROGRESS REPORT ---
Subjective Progress Note for:: 06/08/16 Subjective:: No acute events overnight, reviewed labs, ferritin is only 15. In discussion with patient, she is to have heavy menses, but for 1 year she really hasn't had heavy menses. She has history of hemorrhoids. However stool Hemoccult done here was negative. Physical Exam Vital Signs: Temp Pulse Resp BP Pulse Ox 97.5 F 76 18 130/73 H 91 L 06/08/16 02:57 06/08/16 07:47 06/08/16 07:47 06/08/16 02:57 06/08/16 07:47 Intake & Output 06/07/16 06/08/16 06/09/16 06:59 06:59 06:59 Intake Total 2580 2219 Output Total 1100 400 Balance 1480 1819 Weight 139.8 kg 140.1 kg General appearance: PRESENT: no acute distress, well-developed, well-nourished Head exam: PRESENT: atraumatic, normocephalic Eye exam: PRESENT: conjunctiva pink, EOMI, PERRLA. ABSENT: scleral icterus Ear exam: PRESENT: normal external ear exam Mouth exam: PRESENT: moist, tongue midline Neck exam: ABSENT: carotid bruit, JVD, lymphadenopathy, thyromegaly Respiratory exam: PRESENT: clear to auscultation noel. ABSENT: rales, rhonchi, wheezes Cardiovascular exam: PRESENT: RRR. ABSENT: diastolic murmur, rubs, systolic murmur Pulses: PRESENT: normal dorsalis pedis pul Vascular exam: PRESENT: normal capillary refill GI/Abdominal exam: PRESENT: normal bowel sounds, soft. ABSENT: distended, guarding, mass, organolmegaly, rebound, tenderness Rectal exam: PRESENT: deferred Extremities exam: PRESENT: full ROM. ABSENT: calf tenderness, clubbing, pedal edema Neurological exam: PRESENT: alert, awake, oriented to person, oriented to place , oriented to time, oriented to situation, CN II-XII grossly intact. ABSENT: motor sensory deficit Psychiatric exam: PRESENT: appropriate affect, normal mood. ABSENT: homicidal ideation, suicidal ideation Skin exam: PRESENT: dry, intact, warm. ABSENT: cyanosis, rash Results Laboratory Results: 06/08/16 04:56 06/08/16 04:56 06/07/16 06/07/16 06/07/16 07:55 07:55 07:55 WBC 11.1 H RBC 4.53 Hgb 9.8 L Hct 32.8 L MCV 72 L MCH 21.6 L MCHC 29.8 L RDW 18.1 H Plt Count 393 Seg Neutrophils % 82.9 H Lymphocytes % 8.0 L Monocytes % 7.6 Eosinophils % 1.0 Basophils % 0.5 Absolute Neutrophils 9.2 H Absolute Lymphocytes 0.9 Absolute Monocytes 0.8 Absolute Eosinophils 0.1 Absolute Basophils 0.1 Retic Count (auto) 2.07 Absolute Retic 0.094 Sodium 141.6 Potassium 4.2 Chloride 87 L Carbon Dioxide 40 H* Anion Gap 15 BUN 23 H Creatinine 0.71 Est GFR ( Amer) > 60 Est GFR (Non-Af Amer) > 60 Glucose 99 Calcium 8.9 Magnesium 2.0 Iron < 10.1 L TIBC 376 % Saturation UNABLE TO CALCULATE Transferrin 370 Ferritin 15.30 Vitamin B12 549.0 Folate 13.30 TSH Free T4 Free T3 pg/mL 06/07/16 06/08/16 06/08/16 07:55 04:56 04:56 WBC 9.8 RBC 3.93 Hgb 8.6 L Hct 28.2 L MCV 72 L MCH 22.0 L MCHC 30.7 L RDW 18.1 H Plt Count 356 Seg Neutrophils % 78.9 H Lymphocytes % 9.8 L Monocytes % 9.5 Eosinophils % 1.3 Basophils % 0.5 Absolute Neutrophils 7.7 Absolute Lymphocytes 1.0 Absolute Monocytes 0.9 Absolute Eosinophils 0.1 Absolute Basophils 0.1 Retic Count (auto) Absolute Retic Sodium 140.1 Potassium 4.7 Chloride 90 L Carbon Dioxide 38 H Anion Gap 12 BUN 27 H Creatinine 0.76 Est GFR ( Amer) > 60 Est GFR (Non-Af Amer) > 60 Glucose 94 Calcium 8.7 Magnesium 2.0 Iron TIBC % Saturation Transferrin Ferritin Vitamin B12 Folate TSH 5.72 H Free T4 1.12 Free T3 pg/mL 3.88 06/03/16 06/07/16 09:48 07:55 NT-Pro-B Natriuret Pep 598 H 955 H Impressions: Chest X-Ray 05/31/16 17:04 IMPRESSION: NO ACUTE CARDIOPULMONARY PROCESS. Assessment & Plan - Diagnosis (1) Anemia Qualifiers: Anemia type: other cause Other causes of anemia: chronic disease, other Qualified Code(s): D63.8 - Anemia in other chronic diseases classified elsewhere Is this a current diagnosis for this admission?: YesPlan: Multifactorial, iron deficiency anemia, we will plan for IV iron today, ultimately if her ferritin improved to greater than 100 and hemoglobin still remains under 10 we could consider Procrit or Aranesp. - Time Time Spent with patient: 15-24 minutes Critical Time spent with patient: 15-24 minutes
[2016-06-08] MEDS: NYSTATIN CREAM 15 GM TP SCH ×2 (08:53→17:04)
[2016-06-08] MEDS: DIGOXIN 0.125 MG TABLET PO SCH (08:57)
[2016-06-08] MEDS: DOCUSATE SODIUM 100 MG CAPSULE PO SCH ×2 (08:57→17:15)
[2016-06-08] MEDS: APIXABAN 5 MG TABLET PO SCH ×2 (08:58→17:04)
[2016-06-08] MEDS: DILTIAZEM HCL 180 MG CAPSULE.CR PO SCH ×2 (08:58→22:31)
[2016-06-08] MEDS: METOPROLOL SUCCINATE 50 MG TAB.SR.24H PO SCH ×2 (09:01→22:33)
[2016-06-08] MEDS: FLUOXETINE HCL 20 MG CAPSULE PO SCH (09:02)
[2016-06-08] MEDS ORDERED: FERUMOXYTOL (NON-ESRD) 510 MG/NS 100 ML IV ONE ×2 (09:15)
--- NOTE | 2016-06-08 09:46 | PDOC PROGRESS REPORT ---
Subjective Progress Note for:: 06/08/16 Subjective:: Patient is doing extremely well she has no shortness of breath no chest pain she is alert and awake Physical Exam Vital Signs: Temp Pulse Resp BP Pulse Ox 97.5 F 76 18 130/73 H 91 L 06/08/16 02:57 06/08/16 07:47 06/08/16 07:47 06/08/16 02:57 06/08/16 07:47 Intake & Output 06/07/16 06/08/16 06/09/16 00:59 00:59 00:59 Intake Total 1835 2469 505 Output Total 700 800 Balance 1135 1669 505 Weight 189.9 kg 139.8 kg 140.1 kg General appearance: PRESENT: no acute distress, well-developed, well-nourished Head exam: PRESENT: atraumatic, normocephalic Eye exam: PRESENT: conjunctiva pink, EOMI, PERRLA. ABSENT: scleral icterus Ear exam: PRESENT: normal external ear exam Mouth exam: PRESENT: moist, tongue midline Neck exam: ABSENT: carotid bruit, JVD, lymphadenopathy, thyromegaly Respiratory exam: PRESENT: clear to auscultation noel. ABSENT: rales, rhonchi, wheezes Cardiovascular exam: PRESENT: RRR. ABSENT: diastolic murmur, rubs, systolic murmur Pulses: PRESENT: normal dorsalis pedis pul Vascular exam: PRESENT: normal capillary refill GI/Abdominal exam: PRESENT: normal bowel sounds, soft. ABSENT: distended, guarding, mass, organolmegaly, rebound, tenderness Rectal exam: PRESENT: deferred Extremities exam: PRESENT: full ROM. ABSENT: calf tenderness, clubbing, pedal edema Neurological exam: PRESENT: alert, awake, oriented to person, oriented to place , oriented to time, oriented to situation, CN II-XII grossly intact. ABSENT: motor sensory deficit Psychiatric exam: PRESENT: appropriate affect, normal mood. ABSENT: homicidal ideation, suicidal ideation Skin exam: PRESENT: dry, intact, warm. ABSENT: cyanosis, rash Results Laboratory Results: 06/08/16 04:56 06/08/16 04:56 06/07/16 06/07/16 06/07/16 07:55 07:55 07:55 WBC RBC Hgb Hct MCV MCH MCHC RDW Plt Count Seg Neutrophils % Lymphocytes % Monocytes % Eosinophils % Basophils % Absolute Neutrophils Absolute Lymphocytes Absolute Monocytes Absolute Eosinophils Absolute Basophils Sodium 141.6 Potassium 4.2 Chloride 87 L Carbon Dioxide 40 H* Anion Gap 15 BUN 23 H Creatinine 0.71 Est GFR ( Amer) > 60 Est GFR (Non-Af Amer) > 60 Glucose 99 Calcium 8.9 Magnesium 2.0 Iron < 10.1 L TIBC 376 % Saturation UNABLE TO CALCULATE Transferrin 370 Ferritin 15.30 Vitamin B12 549.0 Folate 13.30 TSH 5.72 H Free T4 1.12 Free T3 pg/mL 3.88 06/08/16 06/08/16 04:56 04:56 WBC 9.8 RBC 3.93 Hgb 8.6 L Hct 28.2 L MCV 72 L MCH 22.0 L MCHC 30.7 L RDW 18.1 H Plt Count 356 Seg Neutrophils % 78.9 H Lymphocytes % 9.8 L Monocytes % 9.5 Eosinophils % 1.3 Basophils % 0.5 Absolute Neutrophils 7.7 Absolute Lymphocytes 1.0 Absolute Monocytes 0.9 Absolute Eosinophils 0.1 Absolute Basophils 0.1 Sodium 140.1 Potassium 4.7 Chloride 90 L Carbon Dioxide 38 H Anion Gap 12 BUN 27 H Creatinine 0.76 Est GFR ( Amer) > 60 Est GFR (Non-Af Amer) > 60 Glucose 94 Calcium 8.7 Magnesium 2.0 Iron TIBC % Saturation Transferrin Ferritin Vitamin B12 Folate TSH Free T4 Free T3 pg/mL 06/03/16 06/07/16 09:48 07:55 NT-Pro-B Natriuret Pep 598 H 955 H Impressions: Chest X-Ray 05/31/16 17:04 IMPRESSION: NO ACUTE CARDIOPULMONARY PROCESS. Assessment & Plan - Diagnosis (1) Atrial fibrillation Qualifiers: Atrial fibrillation type: unspecified Qualified Code(s): I48.91 - Unspecified atrial fibrillation Is this a current diagnosis for this admission?: Yes (2) Depression Qualifiers: Depression Type: unspecified Qualified Code(s): F32.9 - Major depressive disorder, single episode, unspecified Is this a current diagnosis for this admission?: Yes (3) Morbid obesity with BMI of 60.0-69.9, adult Is this a current diagnosis for this admission?: Yes (4) UTI (urinary tract infection) Qualifiers: Urinary tract infection type: acute cystitis Hematuria presence: without hematuria Qualified Code(s): N30.00 - Acute cystitis without hematuria Is this a current diagnosis for this admission?: Yes (5) Morbid obesity with BMI of 50.0-59.9, adult Is this a current diagnosis for this admission?: Yes - Time Time Spent with patient: Patient's condition has improved She is in still in atrial fibrillation is rate controlled Systolic CHF is stable and compensated Her COPD is compensated Patient we will be transferred to medical unit awaiting transfer to rehabilitation Time Spent with patient: 25-34 minutes
[2016-06-08] MEDS: FLUTICASONE/SALMETEROL DISKUS 250-50 MCG/DOSE IH SCH ×2 (10:04→22:31)
[2016-06-08] MEDS: FUROSEMIDE 40 MG TABLET PO SCH ×3 (11:41→18:32)
--- NOTE | 2016-06-08 20:32 | PDOC PROGRESS REPORT ---
Subjective Progress Note for:: 06/08/16 Subjective:: Patient seems to be doing better with some gradual but definite improvement. Pt is denying any chest arm or neck discomfort. Patient denying any PND, orthopnea. Patient denied any sustained palpitations, dizziness, syncope, near syncope. Patient denying any fever chills. Patient denying any other significant discomfort. Patient claims pedal edema is improved. Patient was seen by animal biologist. His stool guaiacs were negative. Patient therefore after discussion with Dr. Lobo was started on ELIQUIS at 5 mg by mouth twice a day. Patient was noted to have very low ferritin level therefore will be placed on iron replacement. Review of systems: Rest review of systems negative. Medications: Medications have been reviewed. Physical Exam Vital Signs: Temp Pulse Resp BP Pulse Ox 97.3 F 65 23 H 113/88 H 93 06/08/16 15:59 06/08/16 15:59 06/08/16 15:59 06/08/16 15:59 06/08/16 15:59 Intake & Output 06/07/16 06/08/16 06/09/16 06:59 06:59 06:59 Intake Total 2580 2219 460 Output Total 1100 400 Balance 1480 1819 460 Weight 139.8 kg 140.1 kg Exam: GENERAL: well-nourished and in no acute distress. Alert and oriented x3 HEAD: Atraumatic, normocephalic. EYES: Pupils equal round and reactive to light, extraocular movements intact, sclera anicteric, conjunctiva are normal. ENT: TMs normal, nares patent, oropharynx clear without exudates. Moist mucous membranes. No oral ulcerations or bleeding gums noted NECK: supple without lymphadenopathy. Trachea is central. No cervical or axillary lymphadenopathy noted. Carotids are 2+, JVD WNL LUNGS: Respiration seems nonlabored, no significant accessory muscle action noted. Breath sounds clear to auscultation bilaterally and equal noted. No wheezes rales or rhonchi noted. No significant dullness noted on percussion. CHEST: Palpation of the chest wall shows no significant chest wall tenderness. No other significant abnormalities noted. 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 ABDOMEN: Soft, no significant tenderness appreciated, normoactive bowel sounds. No guarding, no rebound. No rigidity noted . No masses appreciated. EXTREMITIES: Pedal pulses are 1-2+, no calf tenderness noted. No clubbing or cyanosis.2+ lymphedema +2+ pedal edema noted NEUROLOGICAL: Focused neurological exam showed no significant neurologic deficit. Normal speech, no focal weakness appreciated. PSYCH: Normal mood, normal affect. Judgment and insight within normal limits. SKIN: No significant ecchymosis, rash, superficial ulcerations noted right leg. MUSCULOSKELETAL EXAM: No significant joint swelling noted. Results Laboratory Results: 06/08/16 04:56 06/08/16 04:56 06/07/16 06/08/16 06/08/16 07:55 04:56 04:56 WBC 9.8 RBC 3.93 Hgb 8.6 L Hct 28.2 L MCV 72 L MCH 22.0 L MCHC 30.7 L RDW 18.1 H Plt Count 356 Seg Neutrophils % 78.9 H Lymphocytes % 9.8 L Monocytes % 9.5 Eosinophils % 1.3 Basophils % 0.5 Absolute Neutrophils 7.7 Absolute Lymphocytes 1.0 Absolute Monocytes 0.9 Absolute Eosinophils 0.1 Absolute Basophils 0.1 Sodium 140.1 Potassium 4.7 Chloride 90 L Carbon Dioxide 38 H Anion Gap 12 BUN 27 H Creatinine 0.76 Est GFR ( Amer) > 60 Est GFR (Non-Af Amer) > 60 Glucose 94 Calcium 8.7 Magnesium 2.0 Transferrin 370 06/03/16 06/07/16 09:48 07:55 NT-Pro-B Natriuret Pep 598 H 955 H Impressions: Chest X-Ray 05/31/16 17:04 IMPRESSION: NO ACUTE CARDIOPULMONARY PROCESS. Assessment & Plan - Diagnosis (1) Acute respiratory failure with hypoxia and hypercarbia Is this a current diagnosis for this admission?: Yes (2) Atrial fibrillation Qualifiers: Atrial fibrillation type: unspecified Qualified Code(s): I48.91 - Unspecified atrial fibrillation Is this a current diagnosis for this admission?: Yes (3) Morbid obesity with BMI of 60.0-69.9, adult Is this a current diagnosis for this admission?: Yes (4) Congestive heart failure (CHF) Qualifiers: Congestive heart failure type: diastolic Is this a current diagnosis for this admission?: Yes (5) Obstructive sleep apnea Is this a current diagnosis for this admission?: Yes (6) Sleep related hypoventilation/hypoxemia in other disease Is this a current diagnosis for this admission?: Yes - Notes Notes: Acute respiratory failure: With hypoxemia and hypercarbia: Patient seems visibly improved. Atrial fibrillation: Chronic patient started on ELIQUIS therapy. Side effects were discussed. Morbid obesity: Patient to be referred to have a surgical opinion as an outpatient. CHF: Predominantly right-sided. Improved with current diuretic therapy. Continue with this. Patient seems clinically compensated. Obstructive sleep apnea: Patient being managed with nightly bilevel therapy. Sleep-related hypoxemia: Patient on bilevel therapy on nightly basis. Anemia iron deficiency: Patient to receive iron supplements. Blast Setter following. Patient has remained stable from cardiac standpoint. We will sign off. We will be happy to follow patient in the office for follow-up. Please reconsult if needed. - Time Time with patient: 15-25 minutes - CODE STATUS was discussed, patient remains full code. Surrogate decision-maker unchanged. Multiple medical problems were addressed.More than 50% of the time spent coordinating care, discussing management plans with involved caregivers. Management plans discussed with involved personnels. Medical decision making was of moderate to high complexity , patient's has multiple severe comorbidities. Medications reviewed and adjusted accordingly: Yes
[2016-06-09] MEDS: ACETAMINOPHEN 325 MG TABLET PO PRN (02:46)
[2016-06-09] MEDS: SULFAMETHOXAZOLE/TRIMETHOPRIM 800-160 MG TABLET PO SCH ×2 (05:41→17:26)
[2016-06-09] MEDS: CLOTRIMAZOLE 1% CREAM 15 GM TP SCH ×3 (05:41→21:43)
[2016-06-09] MEDS: IPRATROPIUM/ALBUTEROL 0.5-2.5 MG/3 ML AMPUL NEB SCH ×3 (07:41→20:21)
[2016-06-09] MEDS: FLUOXETINE HCL 20 MG CAPSULE PO SCH (09:14)
[2016-06-09] MEDS: METOPROLOL SUCCINATE 50 MG TAB.SR.24H PO SCH ×2 (09:14→21:42)
[2016-06-09] MEDS: DILTIAZEM HCL 180 MG CAPSULE.CR PO SCH ×2 (09:15→21:42)
[2016-06-09] MEDS: FUROSEMIDE 40 MG TABLET PO SCH ×4 (09:15→17:40)
[2016-06-09] MEDS: DIGOXIN 0.125 MG TABLET PO SCH (09:15)
[2016-06-09] MEDS: APIXABAN 5 MG TABLET PO SCH ×2 (09:16→17:25)
[2016-06-09] MEDS: FLUTICASONE/SALMETEROL DISKUS 250-50 MCG/DOSE IH SCH ×2 (09:16→21:43)
[2016-06-09] MEDS: NYSTATIN CREAM 15 GM TP SCH ×2 (09:17→17:28)
[2016-06-09] MEDS: DOCUSATE SODIUM 100 MG CAPSULE PO SCH ×2 (09:20→17:28)
--- NOTE | 2016-06-09 12:47 | PDOC PROGRESS REPORT ---
Subjective Progress Note for:: 06/09/16 Subjective:: Patient has no complaints she is awaiting placement Physical Exam Vital Signs: Temp Pulse Resp BP Pulse Ox 98.4 F 84 18 120/52 L 90 L 06/09/16 07:35 06/09/16 07:45 06/09/16 07:45 06/09/16 07:35 06/09/16 07:45 Intake & Output 06/08/16 06/09/16 06/10/16 00:59 00:59 00:59 Intake Total 2469 1565 705 Output Total 800 Balance 1669 1565 705 Weight 139.8 kg 140.1 kg 151 kg General appearance: PRESENT: no acute distress, morbidly obese Head exam: PRESENT: atraumatic, normocephalic Eye exam: PRESENT: conjunctiva pink, EOMI, PERRLA. ABSENT: scleral icterus Ear exam: PRESENT: normal external ear exam Mouth exam: PRESENT: moist, tongue midline Neck exam: ABSENT: carotid bruit, JVD, lymphadenopathy, thyromegaly Respiratory exam: PRESENT: decreased breath sounds. ABSENT: rales, rhonchi, wheezes Cardiovascular exam: PRESENT: RRR. ABSENT: diastolic murmur, rubs, systolic murmur Pulses: PRESENT: normal dorsalis pedis pul Vascular exam: PRESENT: normal capillary refill GI/Abdominal exam: PRESENT: normal bowel sounds, soft. ABSENT: distended, guarding, mass, organolmegaly, rebound, tenderness Rectal exam: PRESENT: deferred Extremities exam: PRESENT: full ROM. ABSENT: calf tenderness, clubbing, pedal edema Neurological exam: PRESENT: alert, awake, oriented to person, oriented to place , oriented to time, oriented to situation, CN II-XII grossly intact. ABSENT: motor sensory deficit Psychiatric exam: PRESENT: appropriate affect, normal mood. ABSENT: homicidal ideation, suicidal ideation Skin exam: PRESENT: dry, intact, warm. ABSENT: cyanosis, rash Results Laboratory Results: 06/08/16 04:56 06/08/16 04:56 06/03/16 06/07/16 09:48 07:55 NT-Pro-B Natriuret Pep 598 H 955 H Impressions: Chest X-Ray 05/31/16 17:04 IMPRESSION: NO ACUTE CARDIOPULMONARY PROCESS. Assessment & Plan - Diagnosis (1) Atrial fibrillation Qualifiers: Atrial fibrillation type: unspecified Qualified Code(s): I48.91 - Unspecified atrial fibrillation Is this a current diagnosis for this admission?: Yes (2) Depression Qualifiers: Depression Type: unspecified Qualified Code(s): F32.9 - Major depressive disorder, single episode, unspecified Is this a current diagnosis for this admission?: Yes (3) Morbid obesity with BMI of 60.0-69.9, adult Is this a current diagnosis for this admission?: Yes (4) UTI (urinary tract infection) Qualifiers: Urinary tract infection type: acute cystitis Hematuria presence: without hematuria Qualified Code(s): N30.00 - Acute cystitis without hematuria Is this a current diagnosis for this admission?: Yes (5) Morbid obesity with BMI of 50.0-59.9, adult Is this a current diagnosis for this admission?: Yes - Time Time Spent with patient: Transfer patient to rehabilitation as soon as a bed is available; continue present management Time Spent with patient: 25-34 minutes
[2016-06-10] MEDS: CLOTRIMAZOLE 1% CREAM 15 GM TP SCH ×2 (05:26→18:35)
[2016-06-10] MEDS: SULFAMETHOXAZOLE/TRIMETHOPRIM 800-160 MG TABLET PO SCH ×2 (05:26→18:32)
[2016-06-10] MEDS: ACETAMINOPHEN 325 MG TABLET PO PRN ×2 (06:56→21:57)
[2016-06-10] MEDS: IPRATROPIUM/ALBUTEROL 0.5-2.5 MG/3 ML AMPUL NEB SCH ×3 (08:44→20:47)
[2016-06-10] MEDS ORDERED: FERUMOXYTOL (NON-ESRD) 510 MG/NS 100 ML IV ONE ×2 (09:00)
[2016-06-10] MEDS: FUROSEMIDE 40 MG TABLET PO SCH ×3 (09:31→18:32)
[2016-06-10] MEDS: FLUOXETINE HCL 20 MG CAPSULE PO SCH (09:32)
[2016-06-10] MEDS: METOPROLOL SUCCINATE 50 MG TAB.SR.24H PO SCH ×2 (09:32→21:57)
[2016-06-10] MEDS: FLUTICASONE/SALMETEROL DISKUS 250-50 MCG/DOSE IH SCH ×2 (09:33→21:57)
[2016-06-10] MEDS: NYSTATIN CREAM 15 GM TP SCH (09:33)
[2016-06-10] MEDS: DILTIAZEM HCL 180 MG CAPSULE.CR PO SCH ×2 (09:33→21:57)
[2016-06-10] MEDS: DIGOXIN 0.125 MG TABLET PO SCH (09:34)
[2016-06-10] MEDS: APIXABAN 5 MG TABLET PO SCH ×2 (09:34→18:33)
[2016-06-10] MEDS: DOCUSATE SODIUM 100 MG CAPSULE PO SCH ×2 (09:39→18:35)
[2016-06-10 10:23] LABS: HEMATOCRIT 30.3 % (36.0-47.0); HEMOGLOBIN 8.9 g/dL (12.0-15.5); HGB HCT DIFFERENCE -3.6; MEAN CORPUSCULAR HEMOGLOBIN 21.8 pg (27.0-33.4); MEAN CORPUSCULAR HGB CONC 29.5 g/dL (32.0-36.0); MEAN CORPUSCULAR VOLUME 74 fl (80-97); RED BLOOD COUNT 4.09 10^6/uL (3.72-5.28); RED CELL DISTRIBUTION WIDTH 18.3 % (11.5-14.0); WHITE BLOOD COUNT 10.4 10^3/uL (4.0-10.5)
[2016-06-10 10:44] LABS: BLOOD UREA NITROGEN 24 mg/dL (7-20); CALCIUM 8.9 mg/dL (8.4-10.2); CHLORIDE 91 mmol/L (98-107); CREATININE RESULT 0.75 mg/dL (0.52-1.25); GLUCOSE 128 mg/dL (75-110); SODIUM 141.2 mmol/L (137-145)
[2016-06-10 10:57] LABS: ANION GAP 9 (5-19)
[2016-06-10 10:59] LABS: CARBON DIOXIDE 41 mmol/L (22-30)
--- NOTE | 2016-06-10 14:53 | PDOC PROGRESS REPORT ---
Subjective Progress Note for:: 06/10/16 Subjective:: Patient is quite short of breath today and she had to be placed on the BiPAP she is arousable She refused to wear BiPAP last night She has no chest pain no fever no chills Physical Exam Vital Signs: Temp Pulse Resp BP Pulse Ox 97.5 F 86 23 H 128/85 H 93 06/10/16 11:47 06/10/16 11:47 06/10/16 11:47 06/10/16 11:47 06/10/16 11:47 Intake & Output 06/09/16 06/10/16 06/11/16 00:59 00:59 00:59 Intake Total 1565 2425 53 Output Total 1 Balance 1565 2424 53 Weight 140.1 kg 151 kg 139.9 kg General appearance: PRESENT: mild distress Eye exam: PRESENT: conjunctiva pink, EOMI, PERRLA. ABSENT: scleral icterus Neck exam: ABSENT: carotid bruit, JVD, lymphadenopathy, thyromegaly Respiratory exam: PRESENT: clear to auscultation noel, decreased breath sounds Cardiovascular exam: PRESENT: RRR. ABSENT: diastolic murmur, rubs, systolic murmur Pulses: PRESENT: normal dorsalis pedis pul Neurological exam: PRESENT: alert, CN II-XII grossly intact. ABSENT: motor sensory deficit Skin exam: PRESENT: dry, intact, warm. ABSENT: cyanosis, rash Results Laboratory Results: 06/10/16 10:07 06/10/16 10:07 06/10/16 06/10/16 10:07 10:07 WBC 10.4 RBC 4.09 Hgb 8.9 L Hct 30.3 L MCV 74 L MCH 21.8 L MCHC 29.5 L RDW 18.3 H Plt Count 406 Sodium 141.2 Potassium 5.0 Chloride 91 L Carbon Dioxide 41 H* Anion Gap 9 BUN 24 H Creatinine 0.75 Est GFR ( Amer) > 60 Est GFR (Non-Af Amer) > 60 Glucose 128 H Calcium 8.9 06/03/16 06/07/16 09:48 07:55 NT-Pro-B Natriuret Pep 598 H 955 H Impressions: Chest X-Ray 05/31/16 17:04 IMPRESSION: NO ACUTE CARDIOPULMONARY PROCESS. Assessment & Plan - Diagnosis (1) Atrial fibrillation Qualifiers: Atrial fibrillation type: unspecified Qualified Code(s): I48.91 - Unspecified atrial fibrillation Is this a current diagnosis for this admission?: Yes (2) Depression Qualifiers: Depression Type: unspecified Qualified Code(s): F32.9 - Major depressive disorder, single episode, unspecified Is this a current diagnosis for this admission?: Yes (3) Morbid obesity with BMI of 60.0-69.9, adult Is this a current diagnosis for this admission?: Yes (4) UTI (urinary tract infection) Qualifiers: Urinary tract infection type: acute cystitis Hematuria presence: without hematuria Qualified Code(s): N30.00 - Acute cystitis without hematuria Is this a current diagnosis for this admission?: Yes (5) Morbid obesity with BMI of 50.0-59.9, adult Is this a current diagnosis for this admission?: Yes (6) Chronic respiratory failure Qualifiers: Respiratory failure complication: hypoxia and hypercapnia Qualified Code(s): J96.11 - Chronic respiratory failure with hypoxia; J96.12 - Chronic respiratory failure with hypercapnia Is this a current diagnosis for this admission?: YesPlan: We will reapply BiPAP ; follow-up ABGs Repeat ABG in about a non-time she's been on the BiPAP Chest x-ray portable also will be ordered Lasix was changed from by mouth to IV - Time Time Spent with patient: 25-34 minutes
[2016-06-10] MEDS: FUROSEMIDE INJ/PF 40 MG/4 ML SDV IV SCH (18:35)
[2016-06-10 23:25] LABS: ARTERIAL BLOOD BASE EXCESS 8.7 mmol/L; ARTERIAL BLOOD O2 SATURATION 89.1 % (94-98)
[2016-06-11] MEDS: ACETAMINOPHEN 325 MG TABLET PO PRN (04:07)
[2016-06-11] MEDS: FUROSEMIDE INJ/PF 40 MG/4 ML SDV IV SCH ×2 (05:22→17:11)
[2016-06-11] MEDS: SULFAMETHOXAZOLE/TRIMETHOPRIM 800-160 MG TABLET PO SCH ×2 (05:22→17:11)
[2016-06-11] MEDS: IPRATROPIUM/ALBUTEROL 0.5-2.5 MG/3 ML AMPUL NEB SCH ×3 (09:05→20:27)
[2016-06-11] MEDS: DILTIAZEM HCL 180 MG CAPSULE.CR PO SCH ×2 (09:53→21:38)
[2016-06-11] MEDS: FLUOXETINE HCL 20 MG CAPSULE PO SCH (09:54)
[2016-06-11] MEDS: FLUTICASONE/SALMETEROL DISKUS 250-50 MCG/DOSE IH SCH ×2 (09:54→21:38)
[2016-06-11] MEDS: METOPROLOL SUCCINATE 50 MG TAB.SR.24H PO SCH ×2 (09:54→21:38)
[2016-06-11] MEDS: DIGOXIN 0.125 MG TABLET PO SCH (09:54)
[2016-06-11] MEDS: FUROSEMIDE 40 MG TABLET PO SCH (09:54)
[2016-06-11] MEDS: APIXABAN 5 MG TABLET PO SCH ×2 (09:55→17:12)
[2016-06-11] MEDS: DOCUSATE SODIUM 100 MG CAPSULE PO SCH ×2 (10:01→17:10)
[2016-06-12 05:58] LABS: ABSOLUTE EOSINOPHILS # (AUTO) 0.1 10^3/uL (0.0-0.6); ABSOLUTE LYMPHOCYTES (AUTO) 0.8 10^3/uL (0.5-4.7); ABSOLUTE MONOCYTES (AUTO) 0.8 10^3/uL (0.1-1.4); ABSOLUTE NEUT (AUTO) 7.6 10^3/uL (1.7-8.2); BASOPHILS % (AUTO) 0.3 % (0-2); EOSINOPHILS % (AUTO) 1.3 % (0-6); HEMATOCRIT 30.4 % (36.0-47.0); HEMOGLOBIN 8.8 g/dL (12.0-15.5); LYMPHOCYTES % (AUTO) 8.7 % (13-45); MEAN CORPUSCULAR HEMOGLOBIN 21.9 pg (27.0-33.4); MEAN CORPUSCULAR HGB CONC 29.1 g/dL (32.0-36.0); MEAN CORPUSCULAR VOLUME 75 fl (80-97); RED BLOOD COUNT 4.04 10^6/uL (3.72-5.28); RED CELL DISTRIBUTION WIDTH 18.5 % (11.5-14.0); SEGMENTED NEUTROPHILS % (AUTO) 80.7 % (42-78); WHITE BLOOD COUNT 9.4 10^3/uL (4.0-10.5)
[2016-06-12 06:23] LABS: BLOOD UREA NITROGEN 20 mg/dL (7-20); CALCIUM 8.5 mg/dL (8.4-10.2); CHLORIDE 90 mmol/L (98-107); CREATININE RESULT 0.73 mg/dL (0.52-1.25); GLUCOSE 104 mg/dL (75-110); POTASSIUM 4.4 mmol/L (3.6-5.0); SODIUM 141.1 mmol/L (137-145)
[2016-06-12 06:30] LABS: ANION GAP 7 (5-19)
[2016-06-12 06:49] LABS: CARBON DIOXIDE 44 mmol/L (22-30)
[2016-06-12] MEDS: FUROSEMIDE INJ/PF 40 MG/4 ML SDV IV SCH (06:51)
[2016-06-12] MEDS: SULFAMETHOXAZOLE/TRIMETHOPRIM 800-160 MG TABLET PO SCH ×2 (06:51→18:18)
[2016-06-12] MEDS: IPRATROPIUM/ALBUTEROL 0.5-2.5 MG/3 ML AMPUL NEB SCH (08:17)
[2016-06-12] MEDS ORDERED: FLUOXETINE HCL 20 MG CAPSULE PO SCH (10:00)
[2016-06-12] MEDS: DOCUSATE SODIUM 100 MG CAPSULE PO SCH ×2 (11:09→18:19)
[2016-06-12] MEDS: DILTIAZEM HCL 180 MG CAPSULE.CR PO SCH ×2 (11:10→21:07)
[2016-06-12] MEDS: METOPROLOL SUCCINATE 50 MG TAB.SR.24H PO SCH ×2 (11:10→21:07)
[2016-06-12] MEDS: DIGOXIN 0.125 MG TABLET PO SCH (11:10)
[2016-06-12] MEDS: FLUOXETINE HCL 20 MG CAPSULE PO SCH (11:11)
[2016-06-12] MEDS: FLUTICASONE/SALMETEROL DISKUS 250-50 MCG/DOSE IH SCH ×2 (11:12→21:08)
[2016-06-12] MEDS: APIXABAN 5 MG TABLET PO SCH ×2 (11:12→18:19)
[2016-06-12] MEDS: NYSTATIN TOPICAL POWDER 15 GM TP SCH ×2 (11:12→18:19)
[2016-06-12] MEDS ORDERED: FUROSEMIDE INJ/PF 40 MG/4 ML SDV IV SCH (18:00)
[2016-06-12] MEDS: BUSPIRONE HCL 10 MG TABLET PO SCH (18:18)
--- NOTE | 2016-06-12 19:36 | PDOC PROGRESS REPORT ---
Subjective Progress Note for:: 06/12/16 Subjective:: No acute events overnight. Patient complains of anxiety. Patient complains of a diet. Patient continues to be on BiPAP. Patient denies chest pain, abdominal pain, nausea, vomiting, fevers, chills, diarrhea, headache, new onset weakness. Physical Exam Vital Signs: Temp Pulse Resp BP Pulse Ox 97.3 F 89 21 H 129/60 H 90 L 06/12/16 16:00 06/12/16 16:00 06/12/16 16:55 06/12/16 16:00 06/12/16 16:00 Intake & Output 06/11/16 06/12/16 06/13/16 06:59 06:59 06:59 Intake Total 1722 485 890 Output Total 1400 750 Balance 322 -265 890 Exam: General: Awake alert and oriented x3, mild respiratory distress on BiPAP, morbidly obese HEENT: AT/NC, PERRL, EOMI, oropharynx is moist, pink, no scleral icterus, no conjunctival injection Neck: No JVD, trachea midline Chest: Clear to auscultation bilaterally, no wheezes rhonchi or rales CV: RRR, normal S1 and S2, no murmur, rub, or gallop Abdomen: Soft, nontender to palpation, nondistended, active bowel sounds; no rebound, rigidity, or guarding Extremities: No cyanosis, clubbing; 2+edema Neuro: Cranial nerves II through XII are grossly intact without focal deficits; awake alert and oriented x3 Psych: Normal mood and affect Results Laboratory Results: 06/12/16 04:20 06/12/16 04:20 06/12/16 06/12/16 04:20 04:20 WBC 9.4 RBC 4.04 Hgb 8.8 L Hct 30.4 L MCV 75 L MCH 21.9 L MCHC 29.1 L RDW 18.5 H Plt Count 399 Seg Neutrophils % 80.7 H Lymphocytes % 8.7 L Monocytes % 9.0 Eosinophils % 1.3 Basophils % 0.3 Absolute Neutrophils 7.6 Absolute Lymphocytes 0.8 Absolute Monocytes 0.8 Absolute Eosinophils 0.1 Absolute Basophils 0.0 Sodium 141.1 Potassium 4.4 Chloride 90 L Carbon Dioxide 44 H* Anion Gap 7 BUN 20 Creatinine 0.73 Est GFR ( Amer) > 60 Est GFR (Non-Af Amer) > 60 Glucose 104 Calcium 8.5 06/03/16 06/07/16 09:48 07:55 NT-Pro-B Natriuret Pep 598 H 955 H Impressions: Chest X-Ray 06/10/16 14:56 IMPRESSION: 1. A limited left lower lobe pneumonia cannot be ruled out. 2. Cardiomegaly with pulmonary vascular prominence but no bruce CHF. Assessment & Plan - Diagnosis (1) Acute on chronic combined systolic and diastolic CHF (congestive heart failure) Is this a current diagnosis for this admission?: YesPlan: Patient's last echo done on 06/03/2016 reveals a grossly normal EF, and severe pulmonary hypertension. Patient currently on Eliquis, digoxin, Cardizem, metoprolol, and Lasix. EF greater than 40% no need for Garrett/ARB. (2) Acute respiratory failure with hypoxia and hypercarbia Is this a current diagnosis for this admission?: YesPlan: BiPAP as needed. Will consider pulmonary consultation. (3) Anemia Qualifiers: Anemia type: other cause Other causes of anemia: chronic disease, other Qualified Code(s): D63.8 - Anemia in other chronic diseases classified elsewhere Is this a current diagnosis for this admission?: Yes (4) Atrial fibrillation Qualifiers: Atrial fibrillation type: unspecified Qualified Code(s): I48.91 - Unspecified atrial fibrillation Is this a current diagnosis for this admission?: YesPlan: Patient currently in sinus. Currently on Eliquis and metoprolol (5) Chronic respiratory failure Qualifiers: Respiratory failure complication: hypoxia and hypercapnia Qualified Code(s): J96.11 - Chronic respiratory failure with hypoxia Is this a current diagnosis for this admission?: Yes (6) Debility Is this a current diagnosis for this admission?: YesPlan: Patient is to go to rehabilitation. Have consulted physical therapy. Encourage patient to participate in own care. (7) Depression Qualifiers: Depression Type: unspecified Qualified Code(s): F32.9 - Major depressive disorder, single episode, unspecified Is this a current diagnosis for this admission?: Yes (8) UTI (urinary tract infection) Qualifiers: Urinary tract infection type: acute cystitis Hematuria presence: without hematuria Qualified Code(s): N30.00 - Acute cystitis without hematuria Is this a current diagnosis for this admission?: YesPlan: Appreciate is currently on day 3 of Bactrim (9) Iron deficiency anemia Qualifiers: Iron deficiency anemia type: unspecified iron deficiency Qualified Code(s): D50.9 - Iron deficiency anemia, unspecified Is this a current diagnosis for this admission?: YesPlan: Continue iron (10) Morbid obesity with BMI of 50.0-59.9, adult Is this a current diagnosis for this admission?: Yes (11) Obstructive sleep apnea Is this a current diagnosis for this admission?: Yes (12) Full code status Is this a current diagnosis for this admission?: Yes - Time Time Spent with patient: 25-34 minutes Medications reviewed and adjusted accordingly: Yes Anticipated discharge: SNF, Acute Rehab Within: when bed available
[2016-06-12] MEDS: ACETAMINOPHEN 325 MG TABLET PO PRN (23:37)
[2016-06-12] MEDS: IPRATROPIUM/ALBUTEROL 0.5-2.5 MG/3 ML AMPUL NEB PRN (23:41)
[2016-06-13] MEDS: SULFAMETHOXAZOLE/TRIMETHOPRIM 800-160 MG TABLET PO SCH (05:10)
[2016-06-13 08:55] LABS: BLOOD UREA NITROGEN 19 mg/dL (7-20); CALCIUM 8.5 mg/dL (8.4-10.2); CHLORIDE 90 mmol/L (98-107); CREATININE RESULT 0.59 mg/dL (0.52-1.25); GLUCOSE 96 mg/dL (75-110); POTASSIUM 4.2 mmol/L (3.6-5.0)
[2016-06-13 09:15] LABS: SODIUM 141.2 mmol/L (137-145)
[2016-06-13 09:20] LABS: ANION GAP 6 (5-19)
[2016-06-13 09:21] LABS: CARBON DIOXIDE 45 mmol/L (22-30)
[2016-06-13] MEDS: NYSTATIN TOPICAL POWDER 15 GM TP SCH ×2 (11:00→17:50)
[2016-06-13] MEDS: DOCUSATE SODIUM 100 MG CAPSULE PO SCH ×2 (11:07→17:34)
[2016-06-13] MEDS: FLUOXETINE HCL 20 MG CAPSULE PO SCH (11:07)
[2016-06-13] MEDS: METOPROLOL SUCCINATE 50 MG TAB.SR.24H PO SCH ×2 (11:07→22:57)
[2016-06-13] MEDS: BUSPIRONE HCL 10 MG TABLET PO SCH ×2 (11:07→17:34)
[2016-06-13] MEDS: FLUTICASONE/SALMETEROL DISKUS 250-50 MCG/DOSE IH SCH ×2 (11:08→22:57)
[2016-06-13] MEDS: DIGOXIN 0.125 MG TABLET PO SCH (11:08)
[2016-06-13] MEDS: DILTIAZEM HCL 180 MG CAPSULE.CR PO SCH ×2 (11:08→22:57)
[2016-06-13] MEDS: APIXABAN 5 MG TABLET PO SCH ×2 (11:08→17:34)
[2016-06-13] MEDS: TORSEMIDE 20 MG TABLET PO SCH (11:10)
--- NOTE | 2016-06-13 15:23 | PDOC PROGRESS REPORT ---
Subjective Progress Note for:: 06/08/16 Subjective:: I am okay Physical Exam Vital Signs: Temp Pulse Resp BP Pulse Ox 97.8 F 69 24 H 117/64 96 06/08/16 08:00 06/08/16 08:00 06/08/16 08:00 06/08/16 08:00 06/08/16 08:00 Intake & Output 06/07/16 06/08/16 06/09/16 06:59 06:59 06:59 Intake Total 2580 2219 Output Total 1100 400 Balance 1480 1819 Weight 139.8 kg 140.1 kg General appearance: PRESENT: no acute distress, cooperative, disheveled, morbidly obese Head exam: PRESENT: atraumatic, normocephalic Eye exam: PRESENT: conjunctiva pale, EOMI Mouth exam: PRESENT: dry mucosa, neck supple Neck exam: ABSENT: carotid bruit, JVD, lymphadenopathy, thyromegaly Respiratory exam: PRESENT: decreased breath sounds, prolonged expiratory phas, rhonchi, symmetrical Cardiovascular exam: PRESENT: RRR, +S1, +S2 Pulses: PRESENT: normal radial pulses GI/Abdominal exam: PRESENT: normal bowel sounds, soft. ABSENT: distended, guarding, mass, organolmegaly, rebound, tenderness Rectal exam: PRESENT: deferred Extremities exam: PRESENT: +1 edema Neurological exam: PRESENT: alert, awake Psychiatric exam: PRESENT: unusual affect Skin exam: PRESENT: dry, warm Results Laboratory Results: 06/08/16 04:56 06/08/16 04:56 06/07/16 06/08/16 06/08/16 07:55 04:56 04:56 WBC 9.8 RBC 3.93 Hgb 8.6 L Hct 28.2 L MCV 72 L MCH 22.0 L MCHC 30.7 L RDW 18.1 H Plt Count 356 Seg Neutrophils % 78.9 H Lymphocytes % 9.8 L Monocytes % 9.5 Eosinophils % 1.3 Basophils % 0.5 Absolute Neutrophils 7.7 Absolute Lymphocytes 1.0 Absolute Monocytes 0.9 Absolute Eosinophils 0.1 Absolute Basophils 0.1 Sodium 140.1 Potassium 4.7 Chloride 90 L Carbon Dioxide 38 H Anion Gap 12 BUN 27 H Creatinine 0.76 Est GFR ( Amer) > 60 Est GFR (Non-Af Amer) > 60 Glucose 94 Calcium 8.7 Magnesium 2.0 Transferrin 370 06/03/16 06/07/16 09:48 07:55 NT-Pro-B Natriuret Pep 598 H 955 H Impressions: Chest X-Ray 05/31/16 17:04 IMPRESSION: NO ACUTE CARDIOPULMONARY PROCESS. Assessment & Plan - Diagnosis (1) Anemia Qualifiers: Anemia type: other cause Other causes of anemia: chronic disease, other Qualified Code(s): D63.8 - Anemia in other chronic diseases classified elsewhere Is this a current diagnosis for this admission?: Yes (2) Morbid obesity with BMI of 60.0-69.9, adult Is this a current diagnosis for this admission?: Yes (3) COPD (chronic obstructive pulmonary disease) Qualifiers: COPD type: unspecified COPD Qualified Code(s): J44.9 - Chronic obstructive pulmonary disease, unspecified Is this a current diagnosis for this admission?: Yes (4) Obstructive sleep apnea Is this a current diagnosis for this admission?: Yes (5) Obesity hypoventilation syndrome Is this a current diagnosis for this admission?: YesPlan: persistant hypercapnia
--- NOTE | 2016-06-13 15:26 | PDOC PROGRESS REPORT ---
Subjective Progress Note for:: 06/09/16 Subjective:: coughing a little more dry Physical Exam Vital Signs: Temp Pulse Resp BP Pulse Ox 98.1 F 74 23 H 114/67 92 06/11/16 11:03 06/11/16 14:04 06/11/16 14:04 06/11/16 11:03 06/11/16 14:04 Intake & Output 06/10/16 06/11/16 06/12/16 06:59 06:59 06:59 Intake Total 1773 1722 410 Output Total 1 1400 450 Balance 1772 322 -40 Weight 139.9 kg General appearance: PRESENT: no acute distress, cooperative, morbidly obese Head exam: PRESENT: atraumatic, normocephalic Eye exam: PRESENT: conjunctiva pink, EOMI Mouth exam: PRESENT: dry mucosa, neck supple Neck exam: ABSENT: carotid bruit, JVD, lymphadenopathy, thyromegaly Respiratory exam: PRESENT: decreased breath sounds, prolonged expiratory phas, rhonchi, symmetrical, unlabored Cardiovascular exam: PRESENT: RRR, +S1, +S2 Pulses: PRESENT: normal radial pulses GI/Abdominal exam: PRESENT: normal bowel sounds, soft. ABSENT: distended, guarding, mass, organolmegaly, rebound, tenderness Rectal exam: PRESENT: deferred Extremities exam: PRESENT: +1 edema Neurological exam: PRESENT: alert, awake Skin exam: PRESENT: dry, warm Results Laboratory Results: 06/10/16 10:07 06/10/16 10:07 06/10/16 17:42 Carbonic Acid 2.69 H HCO3/H2CO3 Ratio 14:1 ABG pH 7.25 L ABG pCO2 89.4 H* ABG pO2 67.5 L ABG HCO3 38.3 H ABG O2 Saturation 89.1 L ABG Base Excess 8.7 FiO2 50% 06/03/16 06/07/16 09:48 07:55 NT-Pro-B Natriuret Pep 598 H 955 H Impressions: Chest X-Ray 06/10/16 14:56 IMPRESSION: 1. A limited left lower lobe pneumonia cannot be ruled out. 2. Cardiomegaly with pulmonary vascular prominence but no bruce CHF. Assessment & Plan - Diagnosis (1) Anemia Qualifiers: Anemia type: other cause Other causes of anemia: chronic disease, other Qualified Code(s): D63.8 - Anemia in other chronic diseases classified elsewhere Is this a current diagnosis for this admission?: Yes (2) Morbid obesity with BMI of 60.0-69.9, adult Is this a current diagnosis for this admission?: Yes (3) COPD (chronic obstructive pulmonary disease) Qualifiers: COPD type: unspecified COPD Qualified Code(s): J44.9 - Chronic obstructive pulmonary disease, unspecified Is this a current diagnosis for this admission?: Yes (4) Obstructive sleep apnea Is this a current diagnosis for this admission?: Yes (5) Obesity hypoventilation syndrome Is this a current diagnosis for this admission?: YesPlan: unchanged
--- NOTE | 2016-06-13 17:06 | PDOC PROGRESS REPORT ---
Subjective Progress Note for:: 06/13/16 Subjective:: No acute events overnight. Patient complains of anxiety. Patient complains of diet. Patient denies chest pain, abdominal pain, nausea, vomiting, fevers, chills, diarrhea, headache, new onset weakness. Physical Exam Vital Signs: Temp Pulse Resp BP Pulse Ox 97.6 F 76 20 101/61 90 L 06/13/16 03:15 06/13/16 03:15 06/13/16 04:20 06/13/16 03:15 06/13/16 03:15 Intake & Output 06/12/16 06/13/16 06/14/16 06:59 06:59 06:59 Intake Total 485 1970 Output Total 750 1250 Balance -265 720 Exam: General: Awake alert and oriented x3, mild respiratory distress, morbidly obese HEENT: AT/NC, PERRL, EOMI, oropharynx is moist, pink, no scleral icterus, no conjunctival injection Neck: No JVD, trachea midline Chest: Clear to auscultation bilaterally, no wheezes rhonchi or rales CV: RRR, normal S1 and S2, no murmur, rub, or gallop Abdomen: Soft, nontender to palpation, nondistended, active bowel sounds; no rebound, rigidity, or guarding Extremities: No cyanosis, clubbing; 2+edema Neuro: Cranial nerves II through XII are grossly intact without focal deficits; awake alert and oriented x3 Psych: Normal mood and affect Results Laboratory Results: 06/12/16 04:20 06/12/16 04:20 06/03/16 06/07/16 09:48 07:55 NT-Pro-B Natriuret Pep 598 H 955 H Impressions: Chest X-Ray 06/10/16 14:56 IMPRESSION: 1. A limited left lower lobe pneumonia cannot be ruled out. 2. Cardiomegaly with pulmonary vascular prominence but no bruce CHF. Assessment & Plan - Diagnosis (1) Acute on chronic combined systolic and diastolic CHF (congestive heart failure) Is this a current diagnosis for this admission?: YesPlan: Patient's last echo done on 06/03/2016 reveals a grossly normal EF, and severe pulmonary hypertension. Patient currently on Eliquis, digoxin, Cardizem, metoprolol, and torsemide. EF greater than 40% no need for Garrett/ARB. (2) Acute respiratory failure with hypoxia and hypercarbia Is this a current diagnosis for this admission?: YesPlan: BiPAP as needed. Pulmonary consultation. (3) Anemia Qualifiers: Anemia type: other cause Other causes of anemia: chronic disease, other Qualified Code(s): D63.8 - Anemia in other chronic diseases classified elsewhere Is this a current diagnosis for this admission?: Yes (4) Atrial fibrillation Qualifiers: Atrial fibrillation type: unspecified Qualified Code(s): I48.91 - Unspecified atrial fibrillation Is this a current diagnosis for this admission?: YesPlan: Patient currently in sinus. Currently on Eliquis and metoprolol (5) Chronic respiratory failure Qualifiers: Respiratory failure complication: hypoxia and hypercapnia Qualified Code(s): J96.11 - Chronic respiratory failure with hypoxia Is this a current diagnosis for this admission?: Yes (6) Debility Is this a current diagnosis for this admission?: Yes (7) Depression Qualifiers: Depression Type: unspecified Qualified Code(s): F32.9 - Major depressive disorder, single episode, unspecified Is this a current diagnosis for this admission?: Yes (8) UTI (urinary tract infection) Qualifiers: Urinary tract infection type: acute cystitis Hematuria presence: without hematuria Qualified Code(s): N30.00 - Acute cystitis without hematuria Is this a current diagnosis for this admission?: YesPlan: Completed Bactrim (9) Iron deficiency anemia Qualifiers: Iron deficiency anemia type: unspecified iron deficiency Qualified Code(s): D50.9 - Iron deficiency anemia, unspecified Is this a current diagnosis for this admission?: Yes (10) Morbid obesity with BMI of 50.0-59.9, adult Is this a current diagnosis for this admission?: Yes (11) Obstructive sleep apnea Is this a current diagnosis for this admission?: Yes (12) Full code status Is this a current diagnosis for this admission?: Yes - Time Time Spent with patient: 25-34 minutes Medications reviewed and adjusted accordingly: Yes Anticipated discharge: Acute Rehab Within: when bed available
[2016-06-13] MEDS: IPRATROPIUM/ALBUTEROL 0.5-2.5 MG/3 ML AMPUL NEB PRN (18:34)
[2016-06-14 08:18] LABS: BLOOD UREA NITROGEN 17 mg/dL (7-20); CHLORIDE 90 mmol/L (98-107); CREATININE RESULT 0.66 mg/dL (0.52-1.25); GLUCOSE 138 mg/dL (75-110); POTASSIUM 4.7 mmol/L (3.6-5.0); SODIUM 141.5 mmol/L (137-145)
[2016-06-14 08:29] LABS: ANION GAP 9 (5-19)
[2016-06-14 08:34] LABS: CARBON DIOXIDE 43 mmol/L (22-30)
[2016-06-14] MEDS: NYSTATIN TOPICAL POWDER 15 GM TP SCH ×2 (10:00→18:30)
[2016-06-14] MEDS: BUSPIRONE HCL 10 MG TABLET PO SCH ×2 (11:54→18:33)
[2016-06-14] MEDS: FLUOXETINE HCL 20 MG CAPSULE PO SCH (11:55)
[2016-06-14] MEDS: APIXABAN 5 MG TABLET PO SCH ×2 (11:55→18:34)
[2016-06-14] MEDS: DOCUSATE SODIUM 100 MG CAPSULE PO SCH ×2 (11:56→18:33)
[2016-06-14] MEDS: FLUTICASONE/SALMETEROL DISKUS 250-50 MCG/DOSE IH SCH ×2 (11:56→21:10)
[2016-06-14] MEDS: TORSEMIDE 20 MG TABLET PO SCH (11:57)
[2016-06-14] MEDS: DILTIAZEM HCL 180 MG CAPSULE.CR PO SCH ×2 (11:58→21:10)
[2016-06-14] MEDS: METOPROLOL SUCCINATE 50 MG TAB.SR.24H PO SCH ×2 (11:59→21:10)
[2016-06-14] MEDS: DIGOXIN 0.125 MG TABLET PO SCH (11:59)
--- NOTE | 2016-06-14 16:56 | PDOC PROGRESS REPORT ---
Subjective Progress Note for:: 06/14/16 Subjective:: No acute events overnight. Patient seen earlier today morning rounds. Patient denies chest pain, abdominal pain, nausea, vomiting, fevers, chills, diarrhea, headache, new onset weakness. Physical Exam Vital Signs: Temp Pulse Resp BP Pulse Ox 97.8 F 85 16 132/80 H 93 06/14/16 16:00 06/14/16 16:00 06/14/16 16:00 06/14/16 16:00 06/14/16 16:00 Intake & Output 06/13/16 06/14/16 06/15/16 06:59 06:59 06:59 Intake Total 1970 2180 1020 Output Total 1250 900 Balance 720 1280 1020 Weight 155.8 kg Exam: General: Awake alert and oriented x3, no acute respiratory distress, morbidly obese HEENT: AT/NC, PERRL, EOMI, oropharynx is moist, pink, no scleral icterus, no conjunctival injection Neck: No JVD, trachea midline Chest: Bilateral bibasilar crackles CV: RRR, normal S1 and S2, no murmur, rub, or gallop; limited by body habitus Abdomen: Soft, nontender to palpation, nondistended, active bowel sounds; no rebound, rigidity, or guarding Extremities: No cyanosis, clubbing; 1+edema Neuro: Cranial nerves II through XII are grossly intact without focal deficits; awake alert and oriented x3 Psych: Normal mood and affect Results Laboratory Results: 06/12/16 04:20 06/14/16 07:56 06/14/16 07:56 Sodium 141.5 Potassium 4.7 Chloride 90 L Carbon Dioxide 43 H* Anion Gap 9 BUN 17 Creatinine 0.66 Est GFR ( Amer) > 60 Est GFR (Non-Af Amer) > 60 Glucose 138 H Calcium 9.0 06/03/16 06/07/16 09:48 07:55 NT-Pro-B Natriuret Pep 598 H 955 H Impressions: Chest X-Ray 06/10/16 14:56 IMPRESSION: 1. A limited left lower lobe pneumonia cannot be ruled out. 2. Cardiomegaly with pulmonary vascular prominence but no bruce CHF. Assessment & Plan - Diagnosis (1) Acute on chronic combined systolic and diastolic CHF (congestive heart failure) Is this a current diagnosis for this admission?: YesPlan: Patient's last echo done on 06/03/2016 reveals a grossly normal EF, and severe pulmonary hypertension. Patient currently on Eliquis, digoxin, Cardizem, metoprolol, and torsemide. EF greater than 40% no need for Garrett/ARB. (2) Acute respiratory failure with hypoxia and hypercarbia Is this a current diagnosis for this admission?: YesPlan: BiPAP as needed. Appreciate Pulmonary consultation. (3) Anemia Qualifiers: Anemia type: other cause Other causes of anemia: chronic disease, other Qualified Code(s): D63.8 - Anemia in other chronic diseases classified elsewhere Is this a current diagnosis for this admission?: YesPlan: Continue iron (4) Atrial fibrillation Qualifiers: Atrial fibrillation type: unspecified Qualified Code(s): I48.91 - Unspecified atrial fibrillation Is this a current diagnosis for this admission?: YesPlan: Patient currently in sinus. Currently on Eliquis and metoprolol (5) Chronic respiratory failure Qualifiers: Respiratory failure complication: hypoxia and hypercapnia Qualified Code(s): J96.11 - Chronic respiratory failure with hypoxia Is this a current diagnosis for this admission?: Yes (6) Debility Is this a current diagnosis for this admission?: YesPlan: Patient is to go to rehabilitation. Have consulted physical therapy. Encourage patient to participate in own care. (7) Depression Qualifiers: Depression Type: unspecified Qualified Code(s): F32.9 - Major depressive disorder, single episode, unspecified Is this a current diagnosis for this admission?: Yes (8) UTI (urinary tract infection) Qualifiers: Urinary tract infection type: acute cystitis Hematuria presence: without hematuria Qualified Code(s): N30.00 - Acute cystitis without hematuria Is this a current diagnosis for this admission?: YesPlan: Completed Bactrim (9) Iron deficiency anemia Qualifiers: Iron deficiency anemia type: unspecified iron deficiency Qualified Code(s): D50.9 - Iron deficiency anemia, unspecified Is this a current diagnosis for this admission?: YesPlan: Continue iron (10) Morbid obesity with BMI of 50.0-59.9, adult Is this a current diagnosis for this admission?: Yes (11) Obstructive sleep apnea Is this a current diagnosis for this admission?: Yes (12) Full code status Is this a current diagnosis for this admission?: Yes (13) Moderate to severe pulmonary hypertension Is this a current diagnosis for this admission?: YesPlan: This has been discussed with patient and palliative care was consulted as well. - Time Time Spent with patient: 25-34 minutes Medications reviewed and adjusted accordingly: Yes
[2016-06-14] MEDS: IPRATROPIUM/ALBUTEROL 0.5-2.5 MG/3 ML AMPUL NEB PRN (21:35)
[2016-06-15] MEDS: ACETAMINOPHEN 325 MG TABLET PO PRN ×2 (03:57→22:27)
[2016-06-15] MEDS: METOPROLOL SUCCINATE 50 MG TAB.SR.24H PO SCH ×2 (09:19→21:11)
[2016-06-15] MEDS: BUSPIRONE HCL 10 MG TABLET PO SCH ×2 (09:19→17:45)
[2016-06-15] MEDS: DOCUSATE SODIUM 100 MG CAPSULE PO SCH ×2 (09:19→17:45)
[2016-06-15] MEDS: DIGOXIN 0.125 MG TABLET PO SCH (09:20)
[2016-06-15] MEDS: FLUOXETINE HCL 20 MG CAPSULE PO SCH (09:20)
[2016-06-15] MEDS: FLUTICASONE/SALMETEROL DISKUS 250-50 MCG/DOSE IH SCH ×2 (09:21→21:11)
[2016-06-15] MEDS: TORSEMIDE 20 MG TABLET PO SCH (09:24)
[2016-06-15] MEDS: NYSTATIN TOPICAL POWDER 15 GM TP SCH ×2 (10:00→18:00)
--- NOTE | 2016-06-15 10:33 | PDOC DISCHARGE SUMMARY ---
General - Admit/Disc Date/PCP Admission Date/Primary Care Provider: 05/31/16 19:30 BENY ESQUIVEL MD Discharge Date: 06/15/16 - Discharge Diagnosis (1) Acute on chronic combined systolic and diastolic CHF (congestive heart failure) Is this a current diagnosis for this admission?: Yes (2) Acute respiratory failure with hypoxia and hypercarbia Is this a current diagnosis for this admission?: Yes (3) Moderate to severe pulmonary hypertension Is this a current diagnosis for this admission?: Yes (4) Anemia Is this a current diagnosis for this admission?: Yes (5) Atrial fibrillation Is this a current diagnosis for this admission?: Yes (6) Chronic respiratory failure Is this a current diagnosis for this admission?: Yes (7) Debility Is this a current diagnosis for this admission?: Yes (8) Depression Is this a current diagnosis for this admission?: Yes (9) UTI (urinary tract infection) Is this a current diagnosis for this admission?: Yes (10) Iron deficiency anemia Is this a current diagnosis for this admission?: Yes (11) Obstructive sleep apnea Is this a current diagnosis for this admission?: Yes (12) Morbid obesity with BMI of 50.0-59.9, adult Is this a current diagnosis for this admission?: Yes - Additional Information Resuscitation Status: Full Code Discharge Diet: Cardiac, Diabetic, Other (Comments) - 1800kcal, ada, 2000mg sodium restricted, 2L fluid restricted Discharge Activity: Slowly Increase Activity, Supervised Activity, Other - must use bipap at rest and when not eating Home Medications: Albuterol Sulfate [Proair HFA] 2 puff IH Q6 06/01/16 Clotrimazole [Athletic Foot Cream] 1 applic TP TID 06/01/16 Digoxin [Lanoxin 0.125 mg Tablet] 0.125 mg PO DAILY 06/01/16 Diltiazem HCl [Diltiazem 12Hr ER] 180 mg PO Q12 06/01/16 Fluoxetine HCl [Prozac] 40 mg PO DAILY 06/01/16 Fluticasone/Salmeterol [Advair 250-50 Diskus 14 Dose/Diskus] 1 inh IH Q12 Metoprolol Succinate [Toprol Xl 50 mg Tab.sr] 50 mg PO Q12 06/01/16 Nystatin [Nyata] 15 gm TP BID 06/01/16 Acetaminophen [Tylenol 325 mg Tablet] 650 mg PO Q4HP PRN tablet 06/14/16 Apixaban [Eliquis 5 mg Tablet] 5 mg PO BID tablet 06/14/16 Buspirone HCl [Buspar 10 mg Tablet] 15 mg PO BID tablet 06/14/16 Docusate Sodium [Colace 100 mg Capsule] 100 mg PO BID capsule 06/14/16 Ipratropium/Albuterol Sulfate [Duoneb 3 ml Ampul] 3 ml NEB RTQ6HP PRN vial.neb 06/14/16 Torsemide [Demadex 20 mg Tablet] 20 mg PO DAILY tablet 06/14/16 History of Present Illness History of Present Illness: MANDY FELIX is a 50 year old female with a past medical history of super morbid obesity with a BMI greater than 65, morbid obesity hypoventilation syndrome, obstructive sleep apnea, combined diastolic and systolic heart failure with an ejection fraction of 35-40%, chronic atrial fibrillation, anemia , and home oxygen dependent. Who is had several days of difficulty walking and staying awake prompting to seek evaluation emergency room where she's found to have partially compensated hypercapnic respiratory failure with a PCO2 of 88 after 2 hours on BiPAP. She denies chest pain complains of hunger and is referred to the hospitalist for admission. Hospital Course Hospital Course: Patient was admitted and placed on BiPAP. She was aggressively diuresed with good results. Repeat echo revealed EF of 30% and severe pulmonary hypertension likely due to her underlying obesity hypoventilation syndrome and chronic congestive heart failure. Patient was also found to have a urinary tract infection with Escherichia coli which was treated with Bactrim. Patient has been stable for transfer to rehabilitation for several days pending acceptance. There remainder of her hospital course is unremarkable. Patient is to always be on BiPAP at night and to be on BiPAP when she is resting and not actively engaging in a task. Patient's mobility is quite limited although is able to with assistance Bedside commode. This patient will benefit from rehabilitation as well as from pulmonary rehabilitation. Repeated discussions were had with this patient regarding her diet compliance. Patient will need to be on a 2000 mg sodium restricted, 1500 mL fluid restricted, 1800 kcal ADA carbohydrate restricted diet. Physical Exam Vital Signs: Temp Pulse Resp BP Pulse Ox 97.3 F 66 24 H 113/64 100 06/15/16 04:00 06/15/16 07:00 06/15/16 04:10 06/15/16 04:00 06/15/16 04:00 Intake & Output 06/14/16 06/15/16 06/16/16 06:59 06:59 06:59 Intake Total 2180 2363 Output Total 900 Balance 1280 2363 Weight 155.8 kg 158.6 kg Exam: General: Awake alert and oriented x3, no acute respiratory distress, morbidly obese HEENT: AT/NC, PERRL, EOMI, oropharynx is moist, pink, no scleral icterus, no conjunctival injection Neck: No JVD, trachea midline Chest: Bilateral bibasilar crackles CV: RRR, normal S1 and S2, no murmur, rub, or gallop; limited by body habitus Abdomen: Soft, nontender to palpation, nondistended, active bowel sounds; no rebound, rigidity, or guarding Extremities: No cyanosis, clubbing; 1+edema Neuro: Cranial nerves II through XII are grossly intact without focal deficits; awake alert and oriented x3 Psych: Normal mood and affect Results Laboratory Results: 06/12/16 04:20 06/14/16 07:56 06/14/16 07:56 Sodium 141.5 Potassium 4.7 Chloride 90 L Carbon Dioxide 43 H* Anion Gap 9 BUN 17 Creatinine 0.66 Est GFR ( Amer) > 60 Est GFR (Non-Af Amer) > 60 Glucose 138 H Calcium 9.0 06/03/16 06/07/16 09:48 07:55 NT-Pro-B Natriuret Pep 598 H 955 H Impressions: Chest X-Ray 06/10/16 14:56 IMPRESSION: 1. A limited left lower lobe pneumonia cannot be ruled out. 2. Cardiomegaly with pulmonary vascular prominence but no bruce CHF. Qualifiers PATEINT BEING DISCHARGED WITH ANY OF THE FOLLOWING DIAGNOSIS?: Heart Failure HF Pt being discharged on ACEI for LVEF less than 40%?: No Reason(s) for not prescribing ACEI:: Compl of medication care - Hypotension HF Pt being discharged on ARBS for LVEF less than 40%?: No Reason(s) for not prescribing ARBS:: Compl of medication care - Hypotension, preload dependent HF Pt with Afib discharged with Warfarin?: No Reason(s) for not prescribing Warfarin:: Not indicated - On Eliquis HF Pt discharged on evidence-based Beta Sanju:: Yes Plan Time Spent: Greater than 30 Minutes
[2016-06-15] MEDS: APIXABAN 5 MG TABLET PO SCH ×2 (11:00→17:44)
[2016-06-15] MEDS: DILTIAZEM HCL 180 MG CAPSULE.CR PO SCH ×2 (11:00→21:12)
[2016-06-15] MEDS: IPRATROPIUM/ALBUTEROL 0.5-2.5 MG/3 ML AMPUL NEB PRN (18:25)
--- NOTE | 2016-06-15 20:28 | PDOC PROGRESS REPORT ---
Subjective Progress Note for:: 06/14/16 Subjective:: W/O COMPLAINTS Physical Exam Vital Signs: Temp Pulse Resp BP Pulse Ox 98.6 F 83 18 137/68 H 93 06/14/16 08:00 06/14/16 08:00 06/14/16 08:00 06/14/16 08:00 06/14/16 08:00 Intake & Output 06/13/16 06/14/16 06/15/16 06:59 06:59 06:59 Intake Total 1970 2180 Output Total 1250 900 Balance 720 1280 Weight 155.8 kg General appearance: PRESENT: no acute distress, cooperative, disheveled, morbidly obese Head exam: PRESENT: atraumatic, normocephalic Eye exam: PRESENT: conjunctiva pale, EOMI Mouth exam: PRESENT: dry mucosa, neck supple Neck exam: ABSENT: carotid bruit, JVD, lymphadenopathy, thyromegaly Respiratory exam: PRESENT: decreased breath sounds, prolonged expiratory phas Cardiovascular exam: PRESENT: RRR, +S1, +S2 Pulses: PRESENT: normal radial pulses GI/Abdominal exam: PRESENT: normal bowel sounds, soft. ABSENT: distended, guarding, mass, organolmegaly, rebound, tenderness Rectal exam: PRESENT: deferred Extremities exam: PRESENT: +1 edema Neurological exam: PRESENT: alert, awake Psychiatric exam: PRESENT: normal mood Results Laboratory Results: 06/12/16 04:20 06/14/16 07:56 06/14/16 07:56 Sodium 141.5 Potassium 4.7 Chloride 90 L Carbon Dioxide 43 H* Anion Gap 9 BUN 17 Creatinine 0.66 Est GFR ( Amer) > 60 Est GFR (Non-Af Amer) > 60 Glucose 138 H Calcium 9.0 06/03/16 06/07/16 09:48 07:55 NT-Pro-B Natriuret Pep 598 H 955 H Impressions: Chest X-Ray 06/10/16 14:56 IMPRESSION: 1. A limited left lower lobe pneumonia cannot be ruled out. 2. Cardiomegaly with pulmonary vascular prominence but no bruce CHF. Assessment & Plan - Diagnosis (1) Anemia Qualifiers: Anemia type: other cause Other causes of anemia: chronic disease, other Qualified Code(s): D63.8 - Anemia in other chronic diseases classified elsewhere Is this a current diagnosis for this admission?: Yes (2) Morbid obesity with BMI of 60.0-69.9, adult Is this a current diagnosis for this admission?: Yes (3) COPD (chronic obstructive pulmonary disease) Qualifiers: COPD type: unspecified COPD Qualified Code(s): J44.9 - Chronic obstructive pulmonary disease, unspecified Is this a current diagnosis for this admission?: Yes (4) Obstructive sleep apnea Is this a current diagnosis for this admission?: Yes (5) Obesity hypoventilation syndrome Is this a current diagnosis for this admission?: Yes
--- NOTE | 2016-06-15 20:32 | PDOC PROGRESS REPORT ---
Subjective Progress Note for:: 06/15/16 Subjective:: W/O COMPLAINTS awaiting transfer Physical Exam Vital Signs: Temp Pulse Resp BP Pulse Ox 98.0 F 115 H 20 124/70 92 06/15/16 19:54 06/15/16 19:54 06/15/16 19:54 06/15/16 19:54 06/15/16 19:54 Intake & Output 06/14/16 06/15/16 06/16/16 06:59 06:59 06:59 Intake Total 2180 2363 1080 Output Total 900 Balance 1280 2363 1080 Weight 155.8 kg 158.6 kg General appearance: PRESENT: no acute distress, cooperative, disheveled, morbidly obese Head exam: PRESENT: atraumatic, normocephalic Eye exam: PRESENT: conjunctiva pale, EOMI Mouth exam: PRESENT: neck supple Neck exam: ABSENT: carotid bruit, JVD, lymphadenopathy, thyromegaly Respiratory exam: PRESENT: decreased breath sounds, prolonged expiratory phas, unlabored Cardiovascular exam: PRESENT: RRR, +S1, +S2 Pulses: PRESENT: normal radial pulses GI/Abdominal exam: PRESENT: normal bowel sounds, soft. ABSENT: distended, guarding, mass, organolmegaly, rebound, tenderness Rectal exam: PRESENT: deferred Neurological exam: PRESENT: awake Psychiatric exam: PRESENT: depressed Skin exam: PRESENT: dry, warm Results Laboratory Results: 06/12/16 04:20 06/14/16 07:56 06/03/16 06/07/16 09:48 07:55 NT-Pro-B Natriuret Pep 598 H 955 H Impressions: Chest X-Ray 06/10/16 14:56 IMPRESSION: 1. A limited left lower lobe pneumonia cannot be ruled out. 2. Cardiomegaly with pulmonary vascular prominence but no bruce CHF. Assessment & Plan - Diagnosis (1) Anemia Qualifiers: Anemia type: other cause Other causes of anemia: chronic disease, other Qualified Code(s): D63.8 - Anemia in other chronic diseases classified elsewhere Is this a current diagnosis for this admission?: Yes (2) Morbid obesity with BMI of 60.0-69.9, adult Is this a current diagnosis for this admission?: Yes (3) COPD (chronic obstructive pulmonary disease) Qualifiers: COPD type: unspecified COPD Qualified Code(s): J44.9 - Chronic obstructive pulmonary disease, unspecified Is this a current diagnosis for this admission?: Yes (4) Obstructive sleep apnea Is this a current diagnosis for this admission?: Yes (5) Obesity hypoventilation syndrome Is this a current diagnosis for this admission?: Yes
[2016-06-15 23:48] VITALS: BP 118/57
[2016-06-16] MEDS: IPRATROPIUM/ALBUTEROL 0.5-2.5 MG/3 ML AMPUL NEB PRN (02:17)
--- NOTE | 2016-06-20 15:40 | Progress Note ---
Provider Note Provider Note: Entered on 06/20/2016 Patient was discharged on 06/15/16, but due to transportation issues did not leave the building until 06/16/2016. Patient was discharged prior to being seen and there are no changes made to her discharge.
== END 2016-06-16 07:00 | DRG 291 ==
LOC: ER 16:38 → EH 19:30 → UNDOADMIN 19:43 → 3W 06-01 11:34 → 4W 06-10 07:45
PROVIDERS: ADMIT Internal Medicine; ATTEND Internal Medicine
PROC: 5A09557 Assistance with Respiratory Ventilation, Greater than 96 Consecutive Hours, Continuous Positive Airway Pressure (ICD-10-PCS; principal; 2016-05-31)
DX: I11.0 Hypertensive heart disease with heart failure (principal); J96.22 Acute and chronic respiratory failure with hypercapnia; E66.2 Morbid (severe) obesity with alveolar hypoventilation; Z68.44 Body mass index [BMI] 60.0-69.9, adult; N30.00 Acute cystitis without hematuria; I50.43 Acute on chronic combined systolic (congestive) and diastolic (congestive) heart failure; I48.91 Unspecified atrial fibrillation; I27.2 Other secondary pulmonary hypertension; D50.9 Iron deficiency anemia, unspecified; I48.2 Chronic atrial fibrillation; F32.9 Major depressive disorder, single episode, unspecified; I89.0 Lymphedema, not elsewhere classified; B96.20 Unspecified Escherichia coli [E. coli] as the cause of diseases classified elsewhere; I25.10 Atherosclerotic heart disease of native coronary artery without angina pectoris; E78.5 Hyperlipidemia, unspecified; J44.9 Chronic obstructive pulmonary disease, unspecified; J45.909 Unspecified asthma, uncomplicated; M19.90 Unspecified osteoarthritis, unspecified site; F41.9 Anxiety disorder, unspecified; G43.909 Migraine, unspecified, not intractable, without status migrainosus; Z99.81 Dependence on supplemental oxygen; Z79.02 Long term (current) use of antithrombotics/antiplatelets; Z82.49 Family history of ischemic heart disease and other diseases of the circulatory system; Z87.891 Personal history of nicotine dependence; Z79.899 Other long term (current) drug therapy; Z88.0 Allergy status to penicillin; Z88.8 Allergy status to other drugs, medicaments and biological substances; Z91.19 Patient's noncompliance with other medical treatment and regimen; Z91.81 History of falling
CPT/HCPCS: 36415; 36600; 71010; 80048; 80053; 80307; 81001; 82272; 82550; 82553; 82607; 82728; 82746; 82803; 83540; 83550; 83735; 83880; 84439; 84443; 84466; 84481; 84484; 84703; 85025; 85027; 85045; 87040; 87086; 87088; 87186; 93005; 93010; 93306; 94640; 94660; 99291; G8978-GP; G8979-GP; G8980-GP; J0696; J1644; J1940; J1956; J2405; J3490; J7620; Q0138

== ENCOUNTER 2016-07-17 07:08 | Inpatient (IN) | payer MEDICAID ==
[2016-07-17] MEDS ORDERED: ALBUTEROL SULFATE 0.083% NEB 2.5 MG/3 ML AMPUL NEB ONE (07:25)
[2016-07-17 07:57] LABS: ABSOLUTE LYMPHOCYTES (AUTO) 0.7 10^3/uL (0.5-4.7); ABSOLUTE MONOCYTES (AUTO) 0.7 10^3/uL (0.1-1.4); ABSOLUTE NEUT (AUTO) 5.4 10^3/uL (1.7-8.2); BASOPHILS % (AUTO) 0.3 % (0-2); EOSINOPHILS % (AUTO) 0.7 % (0-6); HEMATOCRIT 34.1 % (36.0-47.0); HEMOGLOBIN 10.1 g/dL (12.0-15.5); HGB HCT DIFFERENCE -3.8; LYMPHOCYTES % (AUTO) 9.6 % (13-45); MEAN CORPUSCULAR HEMOGLOBIN 24.1 pg (27.0-33.4); MEAN CORPUSCULAR HGB CONC 29.5 g/dL (32.0-36.0); MEAN CORPUSCULAR VOLUME 82 fl (80-97); MONOCYTES % (AUTO) 10.1 % (3-13); RED BLOOD COUNT 4.18 10^6/uL (3.72-5.28); RED CELL DISTRIBUTION WIDTH 24.2 % (11.5-14.0); SEGMENTED NEUTROPHILS % (AUTO) 79.3 % (42-78); WHITE BLOOD COUNT 6.8 10^3/uL (4.0-10.5)
[2016-07-17 08:00] LABS: VENOUS BLOOD BASE EXCESS 13.2 mmol/L; VENOUS BLOOD HCO3 43.6 mmol/L (20-32); VENOUS BLOOD PH 7.26 (7.30-7.42)
[2016-07-17 08:03] LABS: VENOUS BLOOD PCO2 98.9 mmHg (35-63)
[2016-07-17 08:04] LABS: PROTHROMBIN TIME 18.2 SEC (11.4-15.4)
--- NOTE | 2016-07-17 08:05 | RADIOLOGY REPORT (SQ) ---
EXAM DESCRIPTION: CHEST SINGLE VIEW COMPLETED DATE/TIME: 07/17/2016 7:36 am REASON FOR STUDY: sob COMPARISON: Chest x-ray 06/10/2016. EXAM PARAMETERS: NUMBER OF VIEWS: One view. TECHNIQUE: Single frontal radiographic view of the chest acquired. RADIATION DOSE: NA LIMITATIONS: None. FINDINGS: LUNGS AND PLEURA: There are bibasilar ground-glass opacities. No sizable pleural effusion or pneumothorax. MEDIASTINUM AND HILAR STRUCTURES: Prominent main pulmonary artery. HEART AND VASCULAR STRUCTURES: The heart remains enlarged. There is mild central vascular congestion . BONES: No acute findings. HARDWARE: None in the chest. IMPRESSION: Cardiomegaly. Mild central vascular congestion. Prominent main pulmonary artery, may b e seen with pulmonary arterial hypertension. Bibasilar ground-glass opacities, may represent atelectasis or pneumonia. Radiographic followup brandy mmended. TECHNICAL DOCUMENTATION: JOB ID: [id number]
[2016-07-17 08:18] LABS: ANISOCYTOSIS 2+; HYPOCHROMASIA 1+; POIKILOCYTOSIS SLIGHT; POLYCHROMASIA SLIGHT
[2016-07-17 08:19] LABS: OVALOCYTES SLIGHT
[2016-07-17 08:20] LABS: ALANINE AMINOTRANSFERASE 17 U/L (9-52); ALBUMIN 3.5 g/dL (3.5-5.0); ALKALINE PHOSPHATASE 126 U/L (38-126); ASPARTATE AMINO TRANSFERASE 21 U/L (14-36); BILIRUBIN,DIRECT 0.5 mg/dL (0.0-0.4); BILIRUBIN,TOTAL 0.8 mg/dL (0.2-1.3); BLOOD UREA NITROGEN 12 mg/dL (7-20); CALCIUM 8.7 mg/dL (8.4-10.2); CHLORIDE 92 mmol/L (98-107); CREATININE RESULT 0.63 mg/dL (0.52-1.25); GLUCOSE 119 mg/dL (75-110); LIPASE 45.1 U/L (23-300); MAGNESIUM 2.1 mg/dL (1.6-2.3); POTASSIUM 3.6 mmol/L (3.6-5.0); SODIUM 146.9 mmol/L (137-145); TOTAL PROTEIN 7.7 g/dL (6.3-8.2)
[2016-07-17 08:22] LABS: CREATINE KINASE < 20 U/L (30-135)
[2016-07-17 08:27] LABS: ANION GAP 14 (5-19)
[2016-07-17 08:34] LABS: CARBON DIOXIDE 41 mmol/L (22-30)
[2016-07-17 09:40] LABS: ARTERIAL BLOOD BASE EXCESS 9.9 mmol/L; ARTERIAL BLOOD O2 SATURATION 97.3 % (94-98)
--- NOTE | 2016-07-17 10:35 | ER Document Report ---
ED General - General Chief Complaint: Headache Stated Complaint: DIFFICULTY BREATHING Time Seen by Provider: 07/17/16 07:13 TRAVEL OUTSIDE OF THE [place] IN LAST 30 DAYS: No - HPI Patient complains to provider of: Difficulty in breathing headache Notes: Patient is very well-known to the ER patient has a history of acute on chronic respiratory failure due to hypercapnia related to the patient's body mass. Patient coming in today for initially a headache. Patient was found by first responders to be severely hypoxic on room air with SPO2 of 69. Upon arrival patient is alert oriented complaining of headache stating that she was compliant with her CPAP at night and her oxygen states that she was wearing oxygen when first responders arrived. Patient otherwise has no other complaints - Related Data Allergies/Adverse Reactions: budesonide [From Pulmicort] Allergy (Unknown, Verified 07/17/16 08:04) amoxicillin trihydrate [From Augmentin] Allergy (Verified 07/17/16 08:04) brompheniramine maleate [From Dimetapp] Allergy (Verified 07/17/16 08:04) dextromethorphan HBr [From Dimetapp] Allergy (Verified 07/17/16 08:04) phenylpropanolamine HCl [From Dimetapp] Allergy (Verified 07/17/16 08:04) Potassium Clavulanate * [From Augmentin] Allergy (Verified 07/17/16 08:04) pseudoephedrine HCl [From Dimetapp] Allergy (Verified 07/17/16 08:04) tetracycline [Tetracycline] Allergy (Verified 07/17/16 08:04) epinephrine [From Primatene Mist] Adverse Reaction (Verified 07/17/16 08:04) Difficulty breathing Past Medical History - Social History Smoking Status: Never Smoker Frequency of alcohol use: None Drug Abuse: None Family History: Reviewed & Not Pertinent, Hypertension - Past Medical History Cardiac Medical History: Reports: Hx Atrial Fibrillation, Hx Coronary Artery Disease, Hx Hypercholesterolemia, Hx Hypertension Denies: Hx Heart Attack Pulmonary Medical History: Reports: Hx Asthma, Hx COPD, Hx Respiratory Failure, Hx Sleep Apnea Denies: Hx Bronchitis, Hx Pneumonia, Hx Tuberculosis Neurological Medical History: Reports: Hx Migraine. Denies: Hx Cerebrovascular Accident, Hx Seizures Renal/ Medical History: Denies: Hx Peritoneal Dialysis Musculoskeltal Medical History: Reports Hx Arthritis Psychiatric Medical History: Reports: Hx Depression Past Surgical History: Reports: Hx Section, Hx Gynecologic Surgery - Endometrial ablation. Denies: Hx Hysterectomy - Immunizations Immunizations up to date: Yes Hx Diphtheria, Pertussis, Tetanus Vaccination: No Hx Pneumococcal Vaccination: 10/15/12 Review of Systems - Review of Systems Constitutional: No symptoms reported EENT: No symptoms reported Cardiovascular: No symptoms reported Respiratory: Short of breath Gastrointestinal: No symptoms reported Genitourinary: No symptoms reported Female Genitourinary: No symptoms reported Musculoskeletal: No symptoms reported Skin: No symptoms reported Hematologic/Lymphatic: No symptoms reported Neurological/Psychological: Headaches -: Yes All other systems reviewed and negative Physical Exam - Vital signs Vitals: Temp Pulse Resp BP Pulse Ox 98.4 F 102 H 24 H 126/73 H 100 07/17/16 07:10 07/17/16 07:10 07/17/16 07:10 07/17/16 07:10 07/17/16 07:10 Interpretation: Normal - Notes Notes: Physical examination is made difficult due to the patient's body size - General General appearance: Appears well, Alert - HEENT Head: Normocephalic, Atraumatic Eyes: Normal Pupils: PERRL - Respiratory Respiratory status: No respiratory distress Chest status: Nontender Breath sounds: Normal Chest palpation: Normal - Cardiovascular Rhythm: Regular Heart sounds: Normal auscultation Murmur: No - Abdominal Inspection: Morbidly Obese Distension: No distension Bowel sounds: Normal Tenderness: Nontender Organomegaly: No organomegaly - Back Back: Normal, Nontender - Extremities General upper extremity: Normal inspection, Nontender, Normal color, Normal ROM , Normal temperature General lower extremity: Normal inspection, Nontender, Normal color, Normal ROM , Normal temperature, Normal weight bearing, Other - Venous stasis changes. No : Kaushal's sign - Neurological Neuro grossly intact: Yes Cognition: Normal Orientation: AAOx4 Za Coma Scale Eye Opening: Spontaneous Za Coma Scale Verbal: Oriented [place] Coma Scale Motor: Obeys Commands Za Coma Scale Total: 15 Speech: Normal Motor strength normal: LUE, RUE, LLE, RLE Sensory: Normal - Psychological Associated symptoms: Normal affect, Normal mood - Skin Skin Temperature: Warm Skin Moisture: Dry Skin Color: Normal Course - Re-evaluation Re-evalutation: 07/17/16 14:32 Patient's initial venous blood gas that showed hypercarbia however there is no signs of acidosis. Patient was placed on BiPAP upon arrival here the patient is chronically on BiPAP. Patient became increasingly drowsy while here ABG was performed showing no acidosis with increase in the patient's PCO2. Chest x-ray shows groundglass opacities. Patient has no white count no fever no history of cough or sputum production. Discussion with admitting hospitalist staff will hold off any antibiotics at this time patient does not have any signs of infection groundglass opacities more likely fluid overload we will give Lasix. Patient will be admitted to the ICU due to her history of respiratory failure - Vital Signs Vital signs: Temp Pulse Resp BP Pulse Ox 98.4 F 105 H 20 112/71 97 07/17/16 07:10 07/17/16 13:37 07/17/16 14:01 07/17/16 14:01 07/17/16 14:01 - Laboratory Result Diagrams: 07/17/16 07:45 07/17/16 07:45 Laboratory results interpreted by me: 07/17/16 07/17/16 07/17/16 07:25 07:45 07:45 Hgb 10.1 L Hct 34.1 L MCH 24.1 L MCHC 29.5 L RDW 24.2 H Seg Neutrophils % 79.3 H Lymphocytes % 9.6 L PT 18.2 H Carbonic Acid 2.12 H ABG pCO2 70.3 H* ABG pO2 104.5 H ABG HCO3 37.6 H ABG Total CO2 39.8 H VBG pH VBG pCO2 VBG HCO3 Sodium Chloride Carbon Dioxide Glucose Direct Bilirubin Creatine Kinase 07/17/16 07/17/16 07:45 07:45 Hgb Hct MCH MCHC RDW Seg Neutrophils % Lymphocytes % PT Carbonic Acid ABG pCO2 ABG pO2 ABG HCO3 ABG Total CO2 VBG pH 7.26 L VBG pCO2 98.9 H* VBG HCO3 43.6 H Sodium 146.9 H Chloride 92 L Carbon Dioxide 41 H* Glucose 119 H Direct Bilirubin 0.5 H Creatine Kinase < 20 L Critical Care Note - Critical Care Note Total time excluding time spent on procedures (mins): 40 Comments: Multiple evaluations for patient with acute on chronic respiratory failure and hypercapnia Discharge - Discharge Clinical Impression: Acute respiratory failure with hypoxia and hypercarbia, Morbid obesity with BMI of 60.0-69.9, adult, Sleep related hypoventilation/hypoxemia in other disease Condition: Good Disposition: ADMITTED INPATIENT Admitting Provider: Ho Alvarado Unit Admitted: ICU
[2016-07-17] MEDS ORDERED: FUROSEMIDE INJ/PF 40 MG/4 ML SDV IV ONE (10:41)
--- NOTE | 2016-07-17 10:51 | EKG REPORT ---
SEVERITY:- ABNORMAL ECG - ATRIAL FIBRILLATION, V-RATE 87-127 VENTRICULAR PREMATURE COMPLEX NONSPECIFIC T ABNORMALITIES, ANT-LAT LEADS : Confirmed by: Yulissa Mondragon 17-Jul-2016 10:50:20
[2016-07-17 11:36] LABS: APPEARANCE,URINE CLEAR; BILIRUBIN,URINE NEGATIVE (NEGATIVE); GLUCOSE, URINE NEGATIVE (NEGATIVE); KETONES,URINE NEGATIVE (NEGATIVE); LEUKOCYTE ESTERASE,URINE NEGATIVE (NEGATIVE); NITRITE,URINE NEGATIVE (NEGATIVE); PROTEIN,URINE 30 mg/dL (NEGATIVE); URINE SPECIFIC GRAVITY 1.015
[2016-07-17 11:59] LABS: VENOUS BLOOD BASE EXCESS 20.4 mmol/L; VENOUS BLOOD HCO3 51.2 mmol/L (20-32); VENOUS BLOOD PH 7.3 (7.30-7.42)
[2016-07-17 12:01] LABS: VENOUS BLOOD PCO2 106.2 mmHg (35-63)
[2016-07-17] MEDS: LEVALBUTEROL HCL NEB 1.25 MG/3 ML AMPUL NEB SCH ×2 (13:37→19:36)
[2016-07-17] MEDS ORDERED: (PENDING PHARMACY ID) (Diltiazem Hcl [Diltiazem 24hr Er] 180 MG) PO SCH (15:15)
[2016-07-17 15:48] LABS: VENOUS BLOOD BASE EXCESS 15.4 mmol/L; VENOUS BLOOD HCO3 44.7 mmol/L (20-32); VENOUS BLOOD PH 7.32 (7.30-7.42)
[2016-07-17 15:50] LABS: VENOUS BLOOD PCO2 88.5 mmHg (35-63)
--- NOTE | 2016-07-17 16:43 | HISTORY AND PHYSICAL E ---
History and Physical NAME: MANDY FELIX : 1965 AGE: 51Y ADMITTED: 07/17/2016 ROOM: ED60 CODE STATUS: FULL CODE. PRIMARY CARE PROVIDER: BENY SEQUIVEL M.D. CHIEF COMPLAINT: Difficulty breathing and headache. HISTORY OF PRESENT ILLNESS: The patient is a 51-year-old female with a past medical history of hypercapnic respiratory failure secondary to hypoventilation syndrome due to morbid obesity that is well known to the hospitalist service. The patient presented to the emergency department via EMS, where due to being found actually hypoxic, according to EMS records, the patient's O2 sats were approximately 70%. The patient was not wearing her oxygen at the time this was done. Upon presentation to the emergency department, the patient's oxygenation status had improved. However, initial blood gas (VBG) revealed a pH of 7.26, a pCO2 of 98.9, bicarb of 43.6. The patient was placed on BiPAP and given no radiographic evidence of pneumonia, the patient had no white count, no fevers, antibiotics were deferred. However, given the patient's hypercapnia, she was referred to the hospitalist for admission and management. PAST MEDICAL HISTORY: Past medical history is remarkable for: 1. Chronic atrial fibrillation. 2. Hyperlipidemia. 3. Chronic obstructive pulmonary disease. 4. Sleep apnea. 5. Hypoventilation syndrome. 6. Migraine headaches. 7. Arthritis. 8. Depression. 9. Blood loss anemia secondary to menorrhagia. 10. Chronic systolic congestive heart failure. 11. Diastolic dysfunction. 12. Severe pulmonary hypertension. 13. RV failure. PAST SURGICAL HISTORY: Past surgical history is remarkable for: section. ALLERGIES: Include 1. PULMICORT. 2. AUGMENTIN. 3. DIMETAPP. 4. TETRACYCLINE. 5. PRIMATENE MIST. MEDICATIONS: Home medications include: 1. Pro-Air HFA 2 puffs inhalation q. 6 hours. 2. Digoxin 0.125 mg p.o. daily. 3. Cardizem 12-hour 180 mg p.o. q. 12 hours. 4. Prozac 40 mg p.o. daily. 5. Advair 250/50 mcg 1 puff inhalation q. 12 hours. 6. Toprol XL 50 mg p.o. daily. 7. Eliquis 5 mg p.o. b.i.d. 8. BuSpar 15 mg p.o. b.i.d. 9. Colace 100 mg p.o. b.i.d. 10. DuoNebs 1 neb q. 6 hours p.r.n. 11. Torsemide 20 mg p.o. daily. SOCIAL HISTORY: The patient currently resides at home. She is a former smoker. The patient denies any history of alcohol abuse. No history of drug abuse. The patient's surrogate decision maker is her daughter, Leah, who may be reached at . FAMILY HISTORY: Family medical history is positive for hypertension in multiple family members. The patient does have a daughter who is healthy. REVIEW OF SYSTEMS: Although groggy, the patient was able to give a review of systems. CONSTITUTIONAL: The patient denies any fevers, chills, dizziness, or weakness. No change in appetite. INTEGUMENTARY: The patient denies any diaphoresis, rashes, bruising or itching. The patient does have chronic cellulitis of her lower extremities. HEENT: No vision changes, hearing loss, nasal drainage, sore throat. Positive for headaches. CARDIOVASCULAR: The patient denies any chest pain, edema, heart palpitations. RESPIRATORY: The patient admits to shortness of breath, strong cough, but no sputum production or hemoptysis. GASTROINTESTINAL: Denies any nausea, vomiting, diarrhea, abdominal pain, bloody hematemesis, constipation, melena, hematochezia. GENITOURINARY: She denies any hematuria, pyuria or dysuria. MUSCULOSKELETAL: The patient does have chronic pains. NEUROLOGIC: Denies any seizures, tremors, or loss of consciousness. HEMATOLOGIC: No easy bruising. ENDOCRINE: Denies any recent weight changes. PSYCHIATRIC: Denies suicidal or homicidal ideation. The rest of the review of the other organ systems is negative. PHYSICAL EXAMINATION: GENERAL: On examination, the patient is a chronically ill-appearing 51-year-old female who is sleepy, but will awaken and alert to person, place, time, and situation. She does not appear to be in distress. VITAL SIGNS: Temperature is 98.4, pulse 105, respirations 20, blood pressure is 112/71, oxygen saturation is 97% on 40% FIO2 on BiPAP settings of 14/8. SKIN: Warm and dry. There is no rash. She is not diaphoretic. HEENT: Pupils are reactive. Conjunctivae are pink. BiPAP mask in place. She does have glasses on. NECK: There is no JVD. CARDIOVASCULAR: Heart is irregularly irregular with no murmur or rub. CHEST: Diminished, symmetrical, unlabored. Possible bilateral basal crackles. ABDOMEN: Obese. Soft. No area of focal tenderness, unable to palpate for organomegaly given the patient's body habitus. EXTREMITIES: No clubbing or cyanosis. Bilateral redness noted of the lower extremities is no erythematous to the touch. There are +1 pedal pulses noted bilaterally. PSYCHIATRIC: The patient is somnolent. NEUROLOGIC: Grossly intact. DIAGNOSTIC DATA: Lab values are as follows: Hematology obtained 07/17/2016: WBC's are 6.8; hemoglobin is 10.1; hematocrit is 34.1; platelet count is 284,000. Coagulation obtained on 07/17/2016: PT is 18.2, INR is 1.42. Venous blood gas obtained on 07/17/2016: PT is 7.30, pCO2 is 106.2, bicarb is 51.2. Chemistries obtained on 08/13/2016: Sodium is 146, potassium is 4.7, chloride is 92, carbon dioxide 41, BUN 12, creatinine 0.63, glucose 119, calcium is 8.7, magnesium is 2.1. IMPRESSION AND PLAN: 1. Cor pulmonale. The patient does have severe RV failure as well as pulmonary hypertension. This is chronic in the patient. Will diurese the patient and monitor volume status. Will replace potassium and follow. 2. Acute on chronic hypoxemic and hypercapnic respiratory failure. This secondary to the above. Will increase BiPAP settings on the BiPAP in an effort to blow off the patient's pCO2. Will repeat blood gas in an hour and follow. The patient does have chronic hypercapnia and pCO2 of 100 is not too uncommon for her. Hypoxia has greatly improved. This is a combination of hypoventilation syndrome as well as sleep apnea and the patient's morbid obesity. 3. Chronic anemia. The patient's hemoglobin is at baseline. 4. Atrial fibrillation. The patient is currently rate controlled. Will continue current medications as well as anticoagulation therapy and follow. 5. Depression. Will continue the patient's home medication. 6. General debility. The patient has been encouraged to go to rehab in the past. DISPOSITION: The patient is a FULL CODE. Pending patient's symptomatology and diagnostic findings, will reevaluate as needed. The patient will be admitted to inpatient IMCU given the patient is hypercapnic as well as significantly acidotic, and the patient's expected length of stay will surpass 2 midnights. TIME SPENT: Time spent on this admission, including assessment, plan, physical examination, patient education, review of previous records is 60 minutes. DICTATING PHYSICIAN: MELANIE MALONE NP [id number] PHY#: [id number] ID: [id number] JOB#: [id number] ACCT: [id number] cc:ANGELO CURRY M.D. > MTDD
[2016-07-17] MEDS: DOCUSATE SODIUM 100 MG CAPSULE PO SCH (19:56)
[2016-07-17] MEDS: APIXABAN 5 MG TABLET PO SCH (21:19)
[2016-07-17] MEDS: METOPROLOL SUCCINATE 50 MG TAB.SR.24H PO SCH (21:22)
[2016-07-17] MEDS: DILTIAZEM HCL 180 MG CAPSULE.CR PO SCH (21:23)
[2016-07-17] MEDS ORDERED: FLUTICASONE/SALMETEROL DISKUS 250-50 MCG/DOSE IH ONE (21:23)
[2016-07-17] MEDS: FUROSEMIDE 20 MG TABLET PO SCH (21:23)
[2016-07-17] MEDS: FLUTICASONE/SALMETEROL DISKUS 250-50 MCG/DOSE IH SCH (21:51)
[2016-07-17 22:11] LABS: VENOUS BLOOD BASE EXCESS 15.5 mmol/L; VENOUS BLOOD HCO3 44.4 mmol/L (20-32); VENOUS BLOOD PH 7.33 (7.30-7.42)
[2016-07-17 22:14] LABS: VENOUS BLOOD PCO2 85.8 mmHg (35-63)
[2016-07-18] MEDS: LEVALBUTEROL HCL NEB 1.25 MG/3 ML AMPUL NEB SCH ×4 (01:48→19:54)
[2016-07-18 05:15] LABS: HEMATOCRIT 31.7 % (36.0-47.0); HEMOGLOBIN 9.5 g/dL (12.0-15.5); HGB HCT DIFFERENCE -3.2; MEAN CORPUSCULAR HEMOGLOBIN 24.3 pg (27.0-33.4); MEAN CORPUSCULAR HGB CONC 29.9 g/dL (32.0-36.0); MEAN CORPUSCULAR VOLUME 81 fl (80-97); RED CELL DISTRIBUTION WIDTH 23.5 % (11.5-14.0); WHITE BLOOD COUNT 7.4 10^3/uL (4.0-10.5)
[2016-07-18 05:19] LABS: VENOUS BLOOD BASE EXCESS 19.2 mmol/L; VENOUS BLOOD HCO3 48.4 mmol/L (20-32); VENOUS BLOOD PH 7.35 (7.30-7.42)
[2016-07-18 05:36] LABS: BLOOD UREA NITROGEN 13 mg/dL (7-20); CALCIUM 8.4 mg/dL (8.4-10.2); CHLORIDE 92 mmol/L (98-107); CREATININE RESULT 0.61 mg/dL (0.52-1.25); GLUCOSE 90 mg/dL (75-110); POTASSIUM 3.8 mmol/L (3.6-5.0); SODIUM 140.2 mmol/L (137-145)
[2016-07-18 06:05] LABS: ANION GAP 5 (5-19); CARBON DIOXIDE 43 mmol/L (22-30)
[2016-07-18] MEDS ORDERED: ENOXAPARIN SODIUM INJ 40 MG/0.4 ML DISP.SYRIN SUBCUT SCH (08:00)
[2016-07-18] MEDS: FUROSEMIDE 20 MG TABLET PO SCH ×2 (08:44→21:45)
[2016-07-18] MEDS: APIXABAN 5 MG TABLET PO SCH ×2 (10:34→21:44)
[2016-07-18] MEDS: DOCUSATE SODIUM 100 MG CAPSULE PO SCH ×2 (10:34→18:27)
[2016-07-18] MEDS: DIGOXIN 0.125 MG TABLET PO SCH (10:35)
[2016-07-18] MEDS: FLUOXETINE HCL 20 MG CAPSULE PO SCH (10:35)
[2016-07-18] MEDS: DILTIAZEM HCL 180 MG CAPSULE.CR PO SCH ×2 (10:36→21:45)
[2016-07-18] MEDS: METOPROLOL SUCCINATE 50 MG TAB.SR.24H PO SCH ×2 (10:37→21:44)
[2016-07-18] MEDS: FLUTICASONE/SALMETEROL DISKUS 250-50 MCG/DOSE IH SCH ×2 (10:39→21:44)
[2016-07-18] MEDS ORDERED: KETOROLAC TROMETHAMINE INJ/PF 30 MG/1 ML SDV IV PRN (10:49)
--- NOTE | 2016-07-18 15:48 | PROGRESS NOTE E ---
Progress Note NAME: MANDY FELIX : 1965 AGE: 51Y DATE: 07/18/2016 ROOM: 313 SUBJECTIVE: The patient is lying in bed. She is more awake and alert than she was yesterday. Her PCO2 is steady, stable though. The patient asked for BuSpar. I explained to her that I would like her to be more alert before adding these medications. The patient does want her diabetic diet lifted, stating that she is not diabetic. The patient also requests that she not be placed on any form of fluid restriction. The patient also asks for pain medication and the patient does not voice any other concerns at this time. REVIEW OF SYSTEMS: Rest of the review of systems is negative. MEDICATIONS: Medications have been reviewed. OBJECTIVE: GENERAL: The patient is a 51-year-old, morbidly obese female who is awake, alert. She is oriented to person, place, time, situation. She does not appear to be in any significant distress. VITAL SIGNS: Temperature is 98.4, pulse 89, respirations 20, blood pressure is 119/69, oxygen saturation is 93% on BiPAP at 40% FIO2. BiPAP settings are 20/8. HEENT: Pupils are equal, round, reactive to light and accommodation. Conjunctivae pink. BiPAP mask in place. CVS: Heart is irregularly irregular. There is no rub. CHEST: Diminished, symmetrical and labored. ABDOMEN: Soft. No area of focal tenderness. EXTREMITIES: Evidence of persistent and chronic lymphedema. PSYCHIATRIC: Appropriate affect with challenging mood. DIAGNOSTICS: Lab values are as follows: Hematology obtained on 07/18/2016, WBCs 7.4, hemoglobin 7.5, hematocrit is 31.7. Platelet count is 241,000. The venous blood gas obtained on 07/18/2016, pH of 7.35, PCO2 is 89, bicarb is 48. Chemistry obtained on 07/18/2016, sodium is 130, potassium, chloride is 92, carbon dioxide 43, BUN 13, creatinine is 0.61, glucose 90, A1c is 5.1, calcium is 8.4, magnesium is 2.0. IMPRESSION AND PLAN: 1. COR PULMONALE. The patient has evidence of severe pulmonary hypertension, as well as RV failure. It is chronic. The patient was diuresed and tolerated this well. Will continue oral diuretics. Potassium was replaced as well. Will follow. 2. [id number] HYPOXEMIC AND HYPERCAPNIC RESPIRATORY FAILURE SECONDARY TO SLEEP APNEA AND HYPOVENTILATION SYNDROME. The patient has admitted to not wearing her BIPAP at home. The patient is maximized on BIPAP settings now to blow off her pCO2. She is clinically making improvements cognitively. Will repeat gas in the a.m. I discussed a tracheostomy placement with the patient and she adamantly refuses this. 3. CHRONIC ANEMIA. The patient's hemoglobin is at baseline. no menorrhagia at this time. 4. ATRIAL FIBRILLATION. The patient is currently rate controlled. Continue anticoagulation. 5. DEPRESSION. Have continued the patient's home medications. She has asked for Psych to see her. Will put in a consultation once her pCO2 improves. 6. GENERAL DEBILITY. I have encouraged the patient to go to rehab in the past. She was just in rehab two weeks ago. DISPOSITION: The patient is a FULL CODE. Pending patient symptomatology and diagnostic findings, will reevaluate in the a.m. Time spent on this followup including assessment, plan, physical examination, patient education, is 35 minutes. DICTATING PHYSICIAN: MELANIE MALONE NP [id number] PHY#: [id number] ID: [id number] JOB#: [id number] ACCT: [id number] cc: > QUINN
[2016-07-18] MEDS: NYSTATIN TOPICAL POWDER 15 GM TP SCH (18:24)
[2016-07-18] MEDS: LEVALBUTEROL HCL NEB 0.63 MG/3 ML AMPUL NEB PRN (23:22)
[2016-07-19] MEDS: LEVALBUTEROL HCL NEB 1.25 MG/3 ML AMPUL NEB SCH ×5 (01:50→23:33)
[2016-07-19 06:39] LABS: ARTERIAL BLOOD BASE EXCESS 17.1 mmol/L; ARTERIAL BLOOD O2 SATURATION 94.8 % (94-98)
[2016-07-19 07:04] LABS: BLOOD UREA NITROGEN 16 mg/dL (7-20); CALCIUM 8.4 mg/dL (8.4-10.2); CHLORIDE 90 mmol/L (98-107); CREATININE RESULT 0.66 mg/dL (0.52-1.25); GLUCOSE 102 mg/dL (75-110); MAGNESIUM 2.1 mg/dL (1.6-2.3); SODIUM 138.5 mmol/L (137-145)
[2016-07-19 07:20] LABS: ANION GAP 10 (5-19); CARBON DIOXIDE 39 mmol/L (22-30)
[2016-07-19] MEDS: FUROSEMIDE 20 MG TABLET PO SCH ×2 (08:28→21:50)
[2016-07-19] MEDS: DILTIAZEM HCL 180 MG CAPSULE.CR PO SCH ×2 (09:26→21:49)
[2016-07-19] MEDS: APIXABAN 5 MG TABLET PO SCH ×2 (09:26→21:50)
[2016-07-19] MEDS: FLUOXETINE HCL 20 MG CAPSULE PO SCH (09:27)
[2016-07-19] MEDS: DIGOXIN 0.125 MG TABLET PO SCH (09:27)
[2016-07-19] MEDS: METOPROLOL SUCCINATE 50 MG TAB.SR.24H PO SCH ×2 (09:27→21:50)
[2016-07-19] MEDS: FLUTICASONE/SALMETEROL DISKUS 250-50 MCG/DOSE IH SCH ×2 (09:27→21:49)
[2016-07-19] MEDS: DOCUSATE SODIUM 100 MG CAPSULE PO SCH ×2 (09:27→17:32)
[2016-07-19] MEDS: NYSTATIN TOPICAL POWDER 15 GM TP SCH ×2 (10:56→17:32)
[2016-07-19] MEDS ORDERED: BUSPIRONE HCL 10 MG TABLET PO ONE (13:58)
--- NOTE | 2016-07-19 16:18 | PROGRESS NOTE E ---
Progress Note NAME: MANDY FELIX : 1965 AGE: 51Y DATE: 07/19/2016 ROOM: 313 SUBJECTIVE: The patient is lying in bed. She states she feels a little better today. The patient has asked to see any available services that she can see including physical therapy, occupational therapy as well as psych for anxiety/depression. The patient has been afebrile. Her blood pressures have been in a good range. The patient remains hypercapnic, however, her mental status is much improved. The patient does not voice any other concerns at this time. The patient is a 51-year-old female that is well known to the hospitalist service. The patient presented to the emergency department via EMS due to shortness of breath. The patient was found to be both hypoxic and hypercapnic. It appears the patient had not been compliant with her BiPAP at home. The patient's pCO2 was found to be in the 100 range. The patient was placed on BiPAP, and was found to also be volume up and was diuresed and her symptoms have slowly improved. REVIEW OF SYSTEMS: Rest of the review of systems is negative. MEDICATIONS: Medications have been reviewed. OBJECTIVE: GENERAL: The patient is a 51-year-old female who is awake, alert, and is oriented to person, place, time, situation. She verbal, conversational, does not appear to be in any acute distress. VITAL SIGNS: Temperature is 97.3, pulse 69, respirations 20, blood pressure is 117/72, oxygen saturation is 92% on 40% FIO2. SKIN: Warm and dry. No rashes. She is no diaphoretic. She does have areas of yeast noted on her trunk. HEENT: Pupils are equal, round, reactive to light and accommodation. Conjunctivae pink. No JVP. CARDIOVASCULAR: Heart is irregularly irregular. No rub. CHEST: Very diminished, most likely due to body habitus but no longer any crackles. Symmetrical and unlabored at this time. ABDOMEN: Morbidly obese, soft. No area of focal tenderness. EXTREMITIES: Chronic lymphedema with redness but is not erythemic. GENITOURINARY: Plaza is draining clear yellow urine. PSYCHIATRIC: The patient expresses some anxiety and depression. DIAGNOSTICS: Lab values are as follows: Hematology obtained on 07/18/2016: WBCs 7.4, hemoglobin 7.5, hematocrit is 31.7. Platelet count is 241,000. Chemistry obtained on 07/19/2016: Sodium is 138, potassium 4.0, chloride is 90, carbon dioxide 39, BUN 10, creatinine 0.66, glucose 102, A1c is 5.1, calcium is 8.4, magnesium 2.1. IMPRESSION AND PLAN: 1. COR PULMONALE. The patient has severe pulmonary hypertension as well as RV failure, most likely due to her morbid obesity. This is chronic. The patient diuresed well and has tolerated this. Will continue her oral diuretics and replace potassium as needed. 2. [id number] HYPOXEMIC AND HYPERCAPNIC RESPIRATORY FAILURE SECONDARY TO SLEEP APNEA WELL HYPOVENTILATION SYNDROME. The patient has not been wearing her BiPAP at home. She states she only she uses it at night mainly. Will consult Dr. Donohue for more guidance with how often this BiPAP needs to be worn. The patient is making much better cognitive improvements. Although her pCO2 is still high, she is much improved cognitively. The patient adamantly refuses tracheostomy placement. 3. CHRONIC ANEMIA. Hemoglobin is stable. No menorrhagia at this time. 4. CHRONIC ATRIAL FIBRILLATION. The patient is rate controlled. Continue her anticoagulation. 5. DEPRESSION. Will continue home medications. The patient has asked to see Psych. Given that she is much more alert, will go ahead and proceed with this. 6. GENERAL DEBILITY. Have encouraged the patient to go to rehab in the past. She was just in rehab two weeks ago. Consult Physical Therapy. Will discontinue Plaza as the patient is no longer being diuresed. DISPOSITION: The patient is a FULL CODE. Pending patient symptomatology and diagnostic findings, will reevaluate in the a.m. Time spent on this followup including assessment, plan, physical examination, patient education is 25 minutes. DICTATING PHYSICIAN: MELANIE MALONE NP [id number] PHY#: [id number] ID: [id number] JOB#: [id number] ACCT: [id number] cc: >
[2016-07-19] MEDS: BUSPIRONE HCL 10 MG TABLET PO SCH (17:32)
[2016-07-20 05:45] LABS: HEMATOCRIT 33.2 % (36.0-47.0); HGB HCT DIFFERENCE -3.2; MEAN CORPUSCULAR HEMOGLOBIN 23.9 pg (27.0-33.4); MEAN CORPUSCULAR VOLUME 80 fl (80-97); RED BLOOD COUNT 4.17 10^6/uL (3.72-5.28); RED CELL DISTRIBUTION WIDTH 23.9 % (11.5-14.0); WHITE BLOOD COUNT 9.1 10^3/uL (4.0-10.5)
[2016-07-20 06:03] LABS: ALANINE AMINOTRANSFERASE 24 U/L (9-52); ALKALINE PHOSPHATASE 108 U/L (38-126); ASPARTATE AMINO TRANSFERASE 15 U/L (14-36); BILIRUBIN,DIRECT 0.4 mg/dL (0.0-0.4); BILIRUBIN,TOTAL 0.6 mg/dL (0.2-1.3); BLOOD UREA NITROGEN 16 mg/dL (7-20); CALCIUM 8.6 mg/dL (8.4-10.2); CHLORIDE 90 mmol/L (98-107); CREATININE RESULT 0.65 mg/dL (0.52-1.25); GLUCOSE 104 mg/dL (75-110); MAGNESIUM 2.1 mg/dL (1.6-2.3); POTASSIUM 4.2 mmol/L (3.6-5.0); SODIUM 140.3 mmol/L (137-145); TOTAL PROTEIN 6.6 g/dL (6.3-8.2)
[2016-07-20 06:15] LABS: ANION GAP 7 (5-19)
[2016-07-20 06:16] LABS: CARBON DIOXIDE 43 mmol/L (22-30)
[2016-07-20 06:20] LABS: ARTERIAL BLOOD BASE EXCESS 12.9 mmol/L; ARTERIAL BLOOD O2 SATURATION 96.2 % (94-98)
[2016-07-20] MEDS: LEVALBUTEROL HCL NEB 1.25 MG/3 ML AMPUL NEB SCH ×3 (07:52→23:57)
[2016-07-20] MEDS: FLUOXETINE HCL 20 MG CAPSULE PO SCH (09:04)
[2016-07-20] MEDS: FLUTICASONE/SALMETEROL DISKUS 250-50 MCG/DOSE IH SCH ×2 (09:04→21:53)
[2016-07-20] MEDS: APIXABAN 5 MG TABLET PO SCH ×2 (09:04→21:52)
[2016-07-20] MEDS: FUROSEMIDE 20 MG TABLET PO SCH ×2 (09:05→21:53)
[2016-07-20] MEDS: DILTIAZEM HCL 180 MG CAPSULE.CR PO SCH ×2 (09:05→21:52)
[2016-07-20] MEDS: BUSPIRONE HCL 10 MG TABLET PO SCH ×2 (09:05→17:13)
[2016-07-20] MEDS: DIGOXIN 0.125 MG TABLET PO SCH (09:06)
[2016-07-20] MEDS: DOCUSATE SODIUM 100 MG CAPSULE PO SCH ×2 (09:06→17:14)
[2016-07-20] MEDS: METOPROLOL SUCCINATE 50 MG TAB.SR.24H PO SCH ×2 (09:06→21:52)
[2016-07-20] MEDS: NYSTATIN TOPICAL POWDER 15 GM TP SCH ×2 (09:06→17:14)
[2016-07-20] MEDS ORDERED: MUPIROCIN 2% OINTMENT 22 GM TP ONE (11:00)
--- NOTE | 2016-07-20 12:26 | PDOC CONSULTATION ---
Consultation Consult Date: 07/20/16 Attending physician:: MELANIE MALONE Consult reason:: dyspnea History of Present Illness Admission Date/PCP: 07/17/16 10:37 BENY ESQUIVEL MD History of Present Illness: MANDY FELIX is a 51 year old female 51-year-old female well known to [facility] with obstructive ventilatory defect obesity hypoventilation syndrome and obstructive sleep apnea has repeatedly demonstrated that the retained PCO2 she had been placed in a facility that allegedly would accept her and help her deal with her trilogy ventilator. Patient is with multiple complaints regarding this situation she has a cough is usually productive of clear phlegm no hemoptysis nausea vomiting fevers chills rhinorrhea sore throat Past Medical History Cardiac Medical History: Reports: Atrial Fibrillation, Coronary Artery Disease, Hyperlipidema, Hypertension Denies: Myocardial Infarction Pulmonary Medical History: Reports: Asthma, Chronic Obstructive Pulmonary Disease (COPD), Respiratory Failure, Sleep Apnea Denies: Bronchitis, Pneumonia, Tuberculosis Neurological Medical History: Reports: Migraine Denies: Seizures Musculoskeltal Medical History: Reports: Arthritis Psychiatric Medical History: Reports: Depression Hematology: Reports: Anemia Past Surgical History Past Surgical History: Reports: Section Denies: Hysterectomy Social History Information Source: Patient, [facility] Records Lives with: [facility]mediate Smoking Status: Unknown if Ever Smoked Passive smoke exposure as: Both Frequency of Alcohol Use: None Hx Recreational Drug Use: No Drugs: None Hx Prescription Drug Abuse: No Do you have pets?: No Have you had any respiratory illnesses as a child?: No Have you travelled outside of [place] in the past 12 months?: No - Advance Directive Resuscitation Status: Full Code Family History Family History: Reviewed & Not Pertinent, Hypertension Parental Family History Reviewed: Yes Children Family History Reviewed: Yes Sibling(s) Family History Reviewed.: Yes Medication/Allergy Home Medications: Acetaminophen [Tylenol 325 mg Tablet] 650 mg PO Q4HP PRN 07/17/16 Albuterol Sulfate [Proair HFA Inhalation Aerosol 8.5 gm MDI] 2 puff IH Q6 Apixaban [Eliquis 5 mg Tablet] 5 mg PO Q12 07/17/16 Buspirone HCl [Buspar 15 mg Tablet] 15 mg PO Q12 07/17/16 Digoxin [Lanoxin 0.125 mg Tablet] 0.125 mg PO DAILY 07/17/16 Diltiazem HCl [Diltiazem 24Hr ER] 180 mg PO Q12 07/17/16 Docusate Sodium [Colace 100 mg Capsule] 100 mg PO BID 07/17/16 Fluoxetine HCl [Prozac] 40 mg PO DAILY 07/17/16 Fluticasone/Salmeterol [Advair 250-50 Diskus 14 Dose/Diskus] 1 puff IH Q12 07/17 Furosemide [Lasix 20 mg Tablet] 20 mg PO QHS 07/17/16 Furosemide [Lasix 20 mg Tablet] 60 mg PO QAM 07/17/16 Ipratropium/Albuterol Sulfate [Iprat-Albut 0.5-3(2.5) mg/3 ml] 3 ml IH Q6HP PRN 07/17/16 Metoprolol Succinate [Toprol Xl 50 mg Tab.sr] 50 mg PO Q12 07/17/16 Allergies/Adverse Reactions: budesonide [From Pulmicort] Allergy (Unknown, Verified 07/17/16 08:04) amoxicillin trihydrate [From Augmentin] Allergy (Verified 07/17/16 08:04) brompheniramine maleate [From Dimetapp] Allergy (Verified 07/17/16 08:04) dextromethorphan HBr [From Dimetapp] Allergy (Verified 07/17/16 08:04) phenylpropanolamine HCl [From Dimetapp] Allergy (Verified 07/17/16 08:04) Potassium Clavulanate * [From Augmentin] Allergy (Verified 07/17/16 08:04) pseudoephedrine HCl [From Dimetapp] Allergy (Verified 07/17/16 08:04) tetracycline [Tetracycline] Allergy (Verified 07/17/16 08:04) epinephrine [From Primatene Mist] Adverse Reaction (Verified 07/17/16 08:04) Difficulty breathing Physical Exam Vital Signs: Temp Pulse Resp BP Pulse Ox 97.4 F 63 22 H 127/74 H 100 07/20/16 07:15 07/20/16 07:15 07/20/16 07:15 07/20/16 07:15 07/20/16 07:15 Intake & Output 07/19/16 07/20/16 07/21/16 06:59 06:59 06:59 Intake Total 1355 996 Output Total 1325 2025 Balance 30 -1029 Weight 200.3 kg 200.4 kg General appearance: PRESENT: cooperative, disheveled, mild distress, morbidly obese, well-developed Head exam: PRESENT: atraumatic, normocephalic Eye exam: PRESENT: conjunctiva pale, EOMI Mouth exam: PRESENT: moist, neck supple, tongue midline Neck exam: ABSENT: carotid bruit, JVD, lymphadenopathy, thyromegaly Respiratory exam: PRESENT: decreased breath sounds, prolonged expiratory phas, rhonchi, symmetrical, wheezes Cardiovascular exam: PRESENT: RRR, +S1, +S2 Pulses: PRESENT: normal radial pulses GI/Abdominal exam: PRESENT: normal bowel sounds, soft, other - Morbidly obese. ABSENT: distended, guarding, mass, organolmegaly, rebound, tenderness Rectal exam: PRESENT: deferred Gentrourinary exam: PRESENT: indwelling catheter Extremities exam: PRESENT: +1 edema Neurological exam: PRESENT: alert, awake Psychiatric exam: PRESENT: normal mood Skin exam: PRESENT: dry, warm Results Laboratory Results: 07/20/16 04:41 07/20/16 04:41 07/20/16 07/20/16 07/20/16 04:41 04:41 06:00 WBC 9.1 RBC 4.17 Hgb 10.0 L Hct 33.2 L MCV 80 MCH 23.9 L MCHC 30.0 L RDW 23.9 H Plt Count 285 Carbonic Acid 2.00 H HCO3/H2CO3 Ratio 20:1 ABG pH 7.40 ABG pCO2 66.3 H ABG pO2 86.4 ABG HCO3 40.1 H ABG O2 Saturation 96.2 ABG Base Excess 12.9 FiO2 40% Sodium 140.3 Potassium 4.2 Chloride 90 L Carbon Dioxide 43 H* Anion Gap 7 BUN 16 Creatinine 0.65 Est GFR ( Amer) > 60 Est GFR (Non-Af Amer) > 60 Glucose 104 Calcium 8.6 Magnesium 2.1 Total Bilirubin 0.6 AST 15 ALT 24 Alkaline Phosphatase 108 Total Protein 6.6 Albumin 3.0 L Impressions: Chest X-Ray 07/17/16 07:13 IMPRESSION: Cardiomegaly. Mild central vascular congestion. Prominent main pulmonary artery, may be seen with pulmonary arterial hypertension. Bibasilar ground-glass opacities, may represent atelectasis or pneumonia. Radiographic followup recommended. Assessment & Plan - Diagnosis (1) Morbid obesity with BMI of 60.0-69.9, adult Is this a current diagnosis for this admission?: YesPlan: Unchanged (2) Sleep related hypoventilation/hypoxemia in other disease Is this a current diagnosis for this admission?: YesPlan: Patient has noninvasive positive pressure ventilation she did however have disagreements with the staff at her prior facility which may have adversely affected her compliance (3) Acute on chronic respiratory failure with hypercapnia Is this a current diagnosis for this admission?: Yes (5) Obesity hypoventilation syndrome Is this a current diagnosis for this admission?: Yes
--- NOTE | 2016-07-20 16:30 | PDOC PROGRESS REPORT ---
Subjective Progress Note for:: 07/20/16 Subjective:: Patient seen on morning rounds. She is currently on BiPAP in bed. She denies any cough, shortness of breath or nasal congestion. She denies any dyspnea at present time. She is complaining about her diet. She states she will like she was given [place] because of the sodium content. She denies any nausea vomiting abdominal pain or diarrhea. Rest of the review of systems are negative. Physical Exam Vital Signs: Temp Pulse Resp BP Pulse Ox 97.7 F 71 17 133/87 H 97 07/20/16 11:10 07/20/16 14:00 07/20/16 12:03 07/20/16 11:10 07/20/16 11:10 Intake & Output 07/19/16 07/20/16 07/21/16 06:59 06:59 06:59 Intake Total 1355 996 240 Output Total 1325 2025 375 Balance 30 -1029 -135 Weight 200.3 kg 200.4 kg General appearance: PRESENT: no acute distress, morbidly obese, well-developed, well-nourished Head exam: PRESENT: atraumatic, normocephalic Eye exam: PRESENT: conjunctiva pink, EOMI, PERRLA. ABSENT: scleral icterus Ear exam: PRESENT: normal external ear exam Mouth exam: PRESENT: moist, tongue midline Neck exam: ABSENT: carotid bruit, JVD, lymphadenopathy, thyromegaly Respiratory exam: PRESENT: decreased breath sounds, prolonged expiratory phas, symmetrical, unlabored Cardiovascular exam: PRESENT: RRR. ABSENT: diastolic murmur, rubs, systolic murmur Pulses: PRESENT: normal dorsalis pedis pul Vascular exam: PRESENT: normal capillary refill GI/Abdominal exam: PRESENT: normal bowel sounds, soft Rectal exam: PRESENT: deferred Extremities exam: PRESENT: full ROM, pedal edema, +2 edema Musculoskeletal exam: PRESENT: ambulatory, full ROM Neurological exam: PRESENT: alert, awake, oriented to person, oriented to place , oriented to time, oriented to situation, CN II-XII grossly intact. ABSENT: motor sensory deficit Psychiatric exam: PRESENT: appropriate affect, normal mood. ABSENT: homicidal ideation, suicidal ideation Skin exam: PRESENT: erythema, vesicles - right lower leg open wound Results Laboratory Results: 07/20/16 04:41 07/20/16 04:41 07/20/16 07/20/16 07/20/16 04:41 04:41 06:00 WBC 9.1 RBC 4.17 Hgb 10.0 L Hct 33.2 L MCV 80 MCH 23.9 L MCHC 30.0 L RDW 23.9 H Plt Count 285 Carbonic Acid 2.00 H HCO3/H2CO3 Ratio 20:1 ABG pH 7.40 ABG pCO2 66.3 H ABG pO2 86.4 ABG HCO3 40.1 H ABG O2 Saturation 96.2 ABG Base Excess 12.9 FiO2 40% Sodium 140.3 Potassium 4.2 Chloride 90 L Carbon Dioxide 43 H* Anion Gap 7 BUN 16 Creatinine 0.65 Est GFR ( Amer) > 60 Est GFR (Non-Af Amer) > 60 Glucose 104 Calcium 8.6 Magnesium 2.1 Total Bilirubin 0.6 AST 15 ALT 24 Alkaline Phosphatase 108 Total Protein 6.6 Albumin 3.0 L Impressions: Chest X-Ray 07/17/16 07:13 IMPRESSION: Cardiomegaly. Mild central vascular congestion. Prominent main pulmonary artery, may be seen with pulmonary arterial hypertension. Bibasilar ground-glass opacities, may represent atelectasis or pneumonia. Radiographic followup recommended. Assessment & Plan - Diagnosis (1) Acute respiratory failure with hypoxia and hypercarbia Is this a current diagnosis for this admission?: YesPlan: Patient has improvement of her blood gas this morning. She has been on BiPAP controlled. There most likely is noncompliance with BiPAP at home. (2) Morbid obesity with BMI of 60.0-69.9, adult Is this a current diagnosis for this admission?: Yes (3) Sleep related hypoventilation/hypoxemia in other disease Is this a current diagnosis for this admission?: Yes (4) Atrial fibrillation Qualifiers: Atrial fibrillation type: paroxysmal Qualified Code(s): I48.0 - Paroxysmal atrial fibrillation Is this a current diagnosis for this admission?: YesPlan: Presently normal sinus rhythm continue current medication (5) Depression Qualifiers: Depression Type: unspecified Qualified Code(s): F32.9 - Major depressive disorder, single episode, unspecified Is this a current diagnosis for this admission?: YesPlan: Continue current medications (6) Iron deficiency anemia Qualifiers: Iron deficiency anemia type: unspecified iron deficiency Qualified Code(s): D50.9 - Iron deficiency anemia, unspecified Is this a current diagnosis for this admission?: YesPlan: Continue iron supplement (7) Lymphedema Is this a current diagnosis for this admission?: Yes (8) Moderate to severe pulmonary hypertension Is this a current diagnosis for this admission?: Yes (9) Diastolic congestive heart failure Qualifiers: Congestive heart failure chronicity: chronic Qualified Code(s): I50.32 - Chronic diastolic (congestive) heart failure Is this a current diagnosis for this admission?: YesPlan: Patient appears euvolemic - Time Time Spent with patient: 25-34 minutes Critical Time spent with patient: 15-24 minutes Medications reviewed and adjusted accordingly: Yes Anticipated discharge: Acute Rehab
[2016-07-20] MEDS: MUPIROCIN 2% OINTMENT 22 GM TP SCH (17:14)
[2016-07-21] MEDS: LEVALBUTEROL HCL NEB 1.25 MG/3 ML AMPUL NEB SCH ×2 (07:54→16:12)
[2016-07-21] MEDS: BUSPIRONE HCL 10 MG TABLET PO SCH ×3 (09:44→19:38)
[2016-07-21] MEDS: DILTIAZEM HCL 180 MG CAPSULE.CR PO SCH ×2 (09:45→21:33)
[2016-07-21] MEDS: METOPROLOL SUCCINATE 50 MG TAB.SR.24H PO SCH ×2 (09:45→21:33)
[2016-07-21] MEDS: DIGOXIN 0.125 MG TABLET PO SCH (09:46)
[2016-07-21] MEDS: FLUOXETINE HCL 20 MG CAPSULE PO SCH (09:46)
[2016-07-21] MEDS: FUROSEMIDE 20 MG TABLET PO SCH ×2 (09:47→21:32)
[2016-07-21] MEDS: MUPIROCIN 2% OINTMENT 22 GM TP SCH ×2 (09:48→17:39)
[2016-07-21] MEDS: APIXABAN 5 MG TABLET PO SCH ×2 (09:49→21:32)
[2016-07-21] MEDS: DOCUSATE SODIUM 100 MG CAPSULE PO SCH ×2 (09:52→17:39)
[2016-07-21] MEDS: NYSTATIN TOPICAL POWDER 15 GM TP SCH ×2 (09:53→17:39)
[2016-07-21] MEDS: FLUTICASONE/SALMETEROL DISKUS 250-50 MCG/DOSE IH SCH ×2 (09:53→21:32)
[2016-07-21 12:31] LABS: BLOOD UREA NITROGEN 16 mg/dL (7-20); CALCIUM 8.8 mg/dL (8.4-10.2); CHLORIDE 90 mmol/L (98-107); CREATININE RESULT 0.53 mg/dL (0.52-1.25); GLUCOSE 94 mg/dL (75-110); POTASSIUM 4.7 mmol/L (3.6-5.0); SODIUM 137.4 mmol/L (137-145)
[2016-07-21 12:41] LABS: ANION GAP 5 (5-19)
[2016-07-21 12:57] LABS: CARBON DIOXIDE 42 mmol/L (22-30)
--- NOTE | 2016-07-21 17:05 | PDOC PROGRESS REPORT ---
Subjective Progress Note for:: 07/21/16 Subjective:: Patient seen on morning rounds. She is currently on BiPAP in bed. She denies any cough, shortness of breath or nasal congestion. She denies any dyspnea at present time. She is refusing to allow nursing to take ruiz out. She also refused to get out of bed yesterday. She denies any nausea vomiting abdominal pain or diarrhea. Rest of the review of systems are negative. Physical Exam Vital Signs: Temp Pulse Resp BP Pulse Ox 98.1 F 69 28 H 120/71 92 07/21/16 12:00 07/21/16 14:00 07/21/16 12:00 07/21/16 12:00 07/21/16 12:00 Intake & Output 07/20/16 07/21/16 07/22/16 06:59 06:59 06:59 Intake Total 996 986 240 Output Total 2024 1600 600 Balance -1029 -614 -360 Weight 200.4 kg 203.3 kg General appearance: PRESENT: no acute distress, morbidly obese, well-developed, well-nourished Head exam: PRESENT: atraumatic, normocephalic Eye exam: PRESENT: conjunctiva pink, EOMI, PERRLA. ABSENT: scleral icterus Ear exam: PRESENT: normal external ear exam Mouth exam: PRESENT: moist, tongue midline Respiratory exam: PRESENT: clear to auscultation noel, decreased breath sounds, symmetrical, unlabored. ABSENT: rales, rhonchi, wheezes Cardiovascular exam: PRESENT: RRR. ABSENT: diastolic murmur, rubs, systolic murmur Pulses: PRESENT: normal dorsalis pedis pul Vascular exam: PRESENT: pallor GI/Abdominal exam: PRESENT: normal bowel sounds, soft. ABSENT: distended, guarding, mass, organolmegaly, rebound, tenderness Rectal exam: PRESENT: deferred Extremities exam: PRESENT: +2 edema - bilateral lower extremity lymphedema, other Musculoskeletal exam: PRESENT: ambulatory Neurological exam: PRESENT: alert, awake, oriented to person, oriented to place , oriented to time, oriented to situation, CN II-XII grossly intact. ABSENT: motor sensory deficit Psychiatric exam: PRESENT: appropriate affect, normal mood. ABSENT: homicidal ideation, suicidal ideation Skin exam: PRESENT: dry, intact, warm. ABSENT: cyanosis, rash Results Laboratory Results: 07/20/16 04:41 07/21/16 11:31 07/21/16 11:31 Sodium 137.4 Potassium 4.7 Chloride 90 L Carbon Dioxide 42 H* Anion Gap 5 BUN 16 Creatinine 0.53 Est GFR ( Amer) > 60 Est GFR (Non-Af Amer) > 60 Glucose 94 Calcium 8.8 Impressions: Chest X-Ray 07/17/16 07:13 IMPRESSION: Cardiomegaly. Mild central vascular congestion. Prominent main pulmonary artery, may be seen with pulmonary arterial hypertension. Bibasilar ground-glass opacities, may represent atelectasis or pneumonia. Radiographic followup recommended. Assessment & Plan - Diagnosis (1) Acute respiratory failure with hypoxia and hypercarbia Is this a current diagnosis for this admission?: YesPlan: Patient has improvement of her blood gas this morning. She has been on BiPAP controlled. There most likely is noncompliance with BiPAP at home. (2) Morbid obesity with BMI of 60.0-69.9, adult Is this a current diagnosis for this admission?: Yes (3) Sleep related hypoventilation/hypoxemia in other disease Is this a current diagnosis for this admission?: Yes (4) Atrial fibrillation Qualifiers: Atrial fibrillation type: paroxysmal Qualified Code(s): I48.0 - Paroxysmal atrial fibrillation Is this a current diagnosis for this admission?: YesPlan: Presently normal sinus rhythm continue current medication (5) Depression Qualifiers: Depression Type: unspecified Qualified Code(s): F32.9 - Major depressive disorder, single episode, unspecified Is this a current diagnosis for this admission?: YesPlan: Continue current medications (6) Iron deficiency anemia Qualifiers: Iron deficiency anemia type: unspecified iron deficiency Qualified Code(s): D50.9 - Iron deficiency anemia, unspecified Is this a current diagnosis for this admission?: YesPlan: Continue iron supplement (7) Lymphedema Is this a current diagnosis for this admission?: YesPlan: Patient instructed need to ambulate to assist in improvement (8) Moderate to severe pulmonary hypertension Is this a current diagnosis for this admission?: Yes (9) Diastolic congestive heart failure Qualifiers: Congestive heart failure chronicity: chronic Qualified Code(s): I50.32 - Chronic diastolic (congestive) heart failure Is this a current diagnosis for this admission?: YesPlan: Patient appears euvolemic - Time Time Spent with patient: 25-34 minutes Critical Time spent with patient: 15-24 minutes Medications reviewed and adjusted accordingly: Yes Anticipated discharge: Acute Rehab Within: when bed available
[2016-07-21] MEDS: LEVALBUTEROL HCL NEB 0.63 MG/3 ML AMPUL NEB PRN (21:03)
[2016-07-22] MEDS: LEVALBUTEROL HCL NEB 1.25 MG/3 ML AMPUL NEB SCH ×4 (00:21→22:25)
[2016-07-22] MEDS: FUROSEMIDE 20 MG TABLET PO SCH ×2 (08:44→22:03)
[2016-07-22] MEDS: FLUTICASONE/SALMETEROL DISKUS 250-50 MCG/DOSE IH SCH ×2 (09:35→22:04)
[2016-07-22] MEDS: DIGOXIN 0.125 MG TABLET PO SCH (09:36)
[2016-07-22] MEDS: METOPROLOL SUCCINATE 50 MG TAB.SR.24H PO SCH ×2 (09:36→22:07)
[2016-07-22] MEDS: DILTIAZEM HCL 180 MG CAPSULE.CR PO SCH ×2 (09:36→22:03)
[2016-07-22] MEDS: FLUOXETINE HCL 20 MG CAPSULE PO SCH (09:37)
[2016-07-22] MEDS: NYSTATIN TOPICAL POWDER 15 GM TP SCH ×2 (09:37→17:55)
[2016-07-22] MEDS: MUPIROCIN 2% OINTMENT 22 GM TP SCH ×2 (09:37→17:55)
[2016-07-22] MEDS: APIXABAN 5 MG TABLET PO SCH ×2 (09:38→22:04)
[2016-07-22] MEDS: DOCUSATE SODIUM 100 MG CAPSULE PO SCH ×2 (09:41→17:55)
--- NOTE | 2016-07-22 16:00 | PDOC PROGRESS REPORT ---
Subjective Progress Note for:: 07/22/16 Subjective:: Concerned with leg Physical Exam Vital Signs: Temp Pulse Resp BP Pulse Ox 97.4 F 69 19 126/71 H 95 07/22/16 11:52 07/22/16 14:00 07/22/16 11:52 07/22/16 11:52 07/22/16 11:52 Intake & Output 07/21/16 07/22/16 07/23/16 06:59 06:59 06:59 Intake Total 986 2705 Output Total 1600 1900 Balance -614 805 Weight 203.3 kg 203.3 kg General appearance: PRESENT: no acute distress, cooperative, disheveled, morbidly obese, well-developed Head exam: PRESENT: atraumatic, normocephalic Eye exam: PRESENT: conjunctiva pale, EOMI Mouth exam: PRESENT: dry mucosa, neck supple Neck exam: ABSENT: carotid bruit, JVD, lymphadenopathy, thyromegaly Respiratory exam: PRESENT: decreased breath sounds, prolonged expiratory phas, rhonchi, symmetrical Cardiovascular exam: PRESENT: RRR, +S1, +S2 Pulses: PRESENT: normal radial pulses GI/Abdominal exam: PRESENT: normal bowel sounds, soft, other - Morbidly obese. ABSENT: distended, guarding, mass, organolmegaly, rebound, tenderness Rectal exam: PRESENT: deferred Gentrourinary exam: PRESENT: indwelling catheter Extremities exam: PRESENT: +1 edema Neurological exam: PRESENT: alert, awake Psychiatric exam: PRESENT: anxious Skin exam: PRESENT: dry, warm, other - Wound skin flap distal right lower extremity Results Laboratory Results: 07/20/16 04:41 07/21/16 11:31 Impressions: Chest X-Ray 07/17/16 07:13 IMPRESSION: Cardiomegaly. Mild central vascular congestion. Prominent main pulmonary artery, may be seen with pulmonary arterial hypertension. Bibasilar ground-glass opacities, may represent atelectasis or pneumonia. Radiographic followup recommended. Assessment & Plan - Diagnosis (1) Morbid obesity with BMI of 60.0-69.9, adult Is this a current diagnosis for this admission?: Yes (2) Sleep related hypoventilation/hypoxemia in other disease Is this a current diagnosis for this admission?: Yes (3) Acute on chronic respiratory failure with hypercapnia Is this a current diagnosis for this admission?: Yes (4) Moderate to severe pulmonary hypertension Is this a current diagnosis for this admission?: Yes (5) Obesity hypoventilation syndrome Is this a current diagnosis for this admission?: Yes
--- NOTE | 2016-07-22 16:03 | PDOC PROGRESS REPORT ---
Subjective Progress Note for:: 07/21/16 Subjective:: Concern with leaking mask Physical Exam Vital Signs: Temp Pulse Resp BP Pulse Ox 97.4 F 69 19 126/71 H 95 07/22/16 11:52 07/22/16 14:00 07/22/16 11:52 07/22/16 11:52 07/22/16 11:52 Intake & Output 07/21/16 07/22/16 07/23/16 06:59 06:59 06:59 Intake Total 986 2705 Output Total 1600 1900 Balance -614 805 Weight 203.3 kg 203.3 kg General appearance: PRESENT: no acute distress, cooperative, disheveled, morbidly obese, well-developed Head exam: PRESENT: atraumatic, normocephalic Eye exam: PRESENT: conjunctiva pale, EOMI Mouth exam: PRESENT: dry mucosa, neck supple Neck exam: ABSENT: carotid bruit, JVD, lymphadenopathy, thyromegaly Respiratory exam: PRESENT: decreased breath sounds, prolonged expiratory phas, rhonchi, unlabored, wheezes, other Cardiovascular exam: PRESENT: RRR, +S1, +S2 Pulses: PRESENT: normal radial pulses GI/Abdominal exam: PRESENT: normal bowel sounds, soft, other - Morbidly obese. ABSENT: distended, guarding, mass, organolmegaly, rebound, tenderness Rectal exam: PRESENT: deferred Gentrourinary exam: PRESENT: indwelling catheter Extremities exam: PRESENT: +2 edema Neurological exam: PRESENT: alert, awake Skin exam: PRESENT: dry, warm Results Laboratory Results: 07/20/16 04:41 07/21/16 11:31 Impressions: Chest X-Ray 07/17/16 07:13 IMPRESSION: Cardiomegaly. Mild central vascular congestion. Prominent main pulmonary artery, may be seen with pulmonary arterial hypertension. Bibasilar ground-glass opacities, may represent atelectasis or pneumonia. Radiographic followup recommended. Assessment & Plan - Diagnosis (1) Morbid obesity with BMI of 60.0-69.9, adult Is this a current diagnosis for this admission?: Yes (2) Sleep related hypoventilation/hypoxemia in other disease Is this a current diagnosis for this admission?: Yes (3) Acute on chronic respiratory failure with hypercapnia Is this a current diagnosis for this admission?: Yes (4) Moderate to severe pulmonary hypertension Is this a current diagnosis for this admission?: Yes (5) Obesity hypoventilation syndrome Is this a current diagnosis for this admission?: Yes
--- NOTE | 2016-07-22 16:39 | PDOC PROGRESS REPORT ---
Subjective Progress Note for:: 07/22/16 Subjective:: Patient seen on morning rounds. She is currently on BiPAP in bed. She denies any cough, shortness of breath or nasal congestion. She denies any dyspnea at present time. She is concerned regarding right lower leg where she scraped her anterior lower leg on the bed rail and is now weeping clear fluid. She also refused to get out of bed again yesterday. She denies any nausea, vomiting, abdominal pain or diarrhea. Rest of the review of systems are negative. Physical Exam Vital Signs: Temp Pulse Resp BP Pulse Ox 98.0 F 57 L 20 116/67 95 07/22/16 15:43 07/22/16 15:43 07/22/16 15:43 07/22/16 15:43 07/22/16 15:43 Intake & Output 07/21/16 07/22/16 07/23/16 06:59 06:59 06:59 Intake Total 986 2705 Output Total 1600 1900 Balance -614 805 Weight 203.3 kg 203.3 kg General appearance: PRESENT: no acute distress, morbidly obese, well-developed, well-nourished Head exam: PRESENT: atraumatic, normocephalic Eye exam: PRESENT: conjunctiva pink, EOMI, PERRLA. ABSENT: scleral icterus Ear exam: PRESENT: normal external ear exam Mouth exam: PRESENT: moist, tongue midline Neck exam: ABSENT: carotid bruit, JVD, lymphadenopathy, thyromegaly Respiratory exam: PRESENT: decreased breath sounds, symmetrical, unlabored Cardiovascular exam: PRESENT: RRR. ABSENT: diastolic murmur, rubs, systolic murmur Pulses: PRESENT: normal dorsalis pedis pul Vascular exam: PRESENT: normal capillary refill GI/Abdominal exam: PRESENT: normal bowel sounds, soft. ABSENT: distended, guarding, mass, organolmegaly, rebound, tenderness Rectal exam: PRESENT: deferred Extremities exam: PRESENT: other - +3 lower extremity lymphedema, Musculoskeletal exam: PRESENT: ambulatory, full ROM Neurological exam: PRESENT: alert, awake, oriented to person, oriented to place , oriented to time, oriented to situation, CN II-XII grossly intact. ABSENT: motor sensory deficit Psychiatric exam: PRESENT: flat affect Skin exam: PRESENT: abrasion, other - 2 cm linear break in skin anterior right lower leg weeping clear fluid, no surrounding erythema Results Laboratory Results: 07/20/16 04:41 07/21/16 11:31 Impressions: Chest X-Ray 07/17/16 07:13 IMPRESSION: Cardiomegaly. Mild central vascular congestion. Prominent main pulmonary artery, may be seen with pulmonary arterial hypertension. Bibasilar ground-glass opacities, may represent atelectasis or pneumonia. Radiographic followup recommended. Assessment & Plan - Diagnosis (1) Acute respiratory failure with hypoxia and hypercarbia Is this a current diagnosis for this admission?: YesPlan: Patient has improvement of her blood gas this morning. She has been on BiPAP controlled. There most likely is noncompliance with BiPAP at home. (2) Morbid obesity with BMI of 60.0-69.9, adult Is this a current diagnosis for this admission?: YesPlan: Counseled (3) Sleep related hypoventilation/hypoxemia in other disease Is this a current diagnosis for this admission?: YesPlan: BIPAP at hs and sleep (4) Atrial fibrillation Qualifiers: Atrial fibrillation type: paroxysmal Qualified Code(s): I48.0 - Paroxysmal atrial fibrillation Is this a current diagnosis for this admission?: YesPlan: Presently normal sinus rhythm continue current medication (5) Depression Qualifiers: Depression Type: unspecified Qualified Code(s): F32.9 - Major depressive disorder, single episode, unspecified Is this a current diagnosis for this admission?: YesPlan: Continue current medications (6) Iron deficiency anemia Qualifiers: Iron deficiency anemia type: unspecified iron deficiency Qualified Code(s): D50.9 - Iron deficiency anemia, unspecified Is this a current diagnosis for this admission?: YesPlan: Continue iron supplement (7) Lymphedema Is this a current diagnosis for this admission?: YesPlan: Patient instructed need to ambulate to assist in improvement (8) Moderate to severe pulmonary hypertension Is this a current diagnosis for this admission?: Yes (9) Diastolic congestive heart failure Qualifiers: Congestive heart failure chronicity: chronic Qualified Code(s): I50.32 - Chronic diastolic (congestive) heart failure Is this a current diagnosis for this admission?: YesPlan: Patient appears euvolemic - Time Time Spent with patient: 25-34 minutes Critical Time spent with patient: 15-24 minutes Medications reviewed and adjusted accordingly: Yes Anticipated discharge: Acute Rehab
[2016-07-22] MEDS: BUSPIRONE HCL 10 MG TABLET PO SCH (18:37)
[2016-07-23] MEDS: LEVALBUTEROL HCL NEB 1.25 MG/3 ML AMPUL NEB SCH ×2 (08:22→16:04)
[2016-07-23] MEDS: FLUOXETINE HCL 20 MG CAPSULE PO SCH (10:04)
[2016-07-23] MEDS: FLUTICASONE/SALMETEROL DISKUS 250-50 MCG/DOSE IH SCH ×2 (10:04→21:14)
[2016-07-23] MEDS: DIGOXIN 0.125 MG TABLET PO SCH (10:05)
[2016-07-23] MEDS: METOPROLOL SUCCINATE 50 MG TAB.SR.24H PO SCH ×2 (10:05→21:15)
[2016-07-23] MEDS: DILTIAZEM HCL 180 MG CAPSULE.CR PO SCH ×2 (10:05→21:15)
[2016-07-23] MEDS: NYSTATIN TOPICAL POWDER 15 GM TP SCH ×2 (10:06→17:59)
[2016-07-23] MEDS: BUSPIRONE HCL 10 MG TABLET PO SCH ×2 (10:06→17:58)
[2016-07-23] MEDS: MUPIROCIN 2% OINTMENT 22 GM TP SCH ×2 (10:06→17:59)
[2016-07-23] MEDS: APIXABAN 5 MG TABLET PO SCH ×2 (10:08→21:15)
[2016-07-23] MEDS: DOCUSATE SODIUM 100 MG CAPSULE PO SCH ×2 (10:11→18:00)
[2016-07-23 10:13] LABS: ARTERIAL BLOOD BASE EXCESS 16.8 mmol/L; ARTERIAL BLOOD O2 SATURATION 93.7 % (94-98)
--- NOTE | 2016-07-23 11:23 | PDOC PROGRESS REPORT ---
Subjective Progress Note for:: 07/23/16 Subjective:: Patient seen on morning rounds. She is currently on BiPAP in bed. She denies any cough, shortness of breath or nasal congestion. She denies any dyspnea at present time. She denies any nausea, vomiting, abdominal pain or diarrhea. She is urinating fairly well after catheter removal. She did get out of bed with PT. She continues to have large amounts of lymph drainage from right lower extremity leg abrasion. No signs of infection. Rest of the review of systems are negative. Physical Exam Vital Signs: Temp Pulse Resp BP Pulse Ox 98.1 F 66 20 147/87 H 95 07/23/16 07:11 07/23/16 07:11 07/23/16 07:11 07/23/16 07:11 07/23/16 07:11 Intake & Output 07/22/16 07/23/16 07/24/16 06:59 06:59 06:59 Intake Total 2705 1889 Output Total 1900 880 Balance 805 1009 Weight 203.3 kg 199 kg General appearance: PRESENT: no acute distress, morbidly obese, well-developed, well-nourished Head exam: PRESENT: atraumatic, normocephalic Eye exam: PRESENT: conjunctiva pink, EOMI, PERRLA. ABSENT: scleral icterus Ear exam: PRESENT: normal external ear exam Mouth exam: PRESENT: moist, tongue midline Teeth exam: PRESENT: edentulous Neck exam: ABSENT: carotid bruit, JVD, lymphadenopathy, thyromegaly Respiratory exam: PRESENT: decreased breath sounds, symmetrical, unlabored. ABSENT: rales, rhonchi, wheezes Cardiovascular exam: PRESENT: RRR. ABSENT: diastolic murmur, rubs, systolic murmur Pulses: PRESENT: normal dorsalis pedis pul Vascular exam: PRESENT: normal capillary refill GI/Abdominal exam: PRESENT: normal bowel sounds Extremities exam: PRESENT: other - +3 lymphedema of bilateral lower extremities Musculoskeletal exam: PRESENT: ambulatory, full ROM Neurological exam: PRESENT: alert, awake, oriented to person, oriented to place , oriented to time, oriented to situation, CN II-XII grossly intact. ABSENT: motor sensory deficit Psychiatric exam: PRESENT: flat affect Skin exam: PRESENT: abrasion - right lower leg Results Laboratory Results: 07/20/16 04:41 07/21/16 11:31 07/23/16 09:30 Carbonic Acid 2.39 H HCO3/H2CO3 Ratio 18:1 ABG pH 7.37 ABG pCO2 79.4 H* ABG pO2 74.1 L ABG HCO3 45.3 H ABG O2 Saturation 93.7 L ABG Base Excess 16.8 FiO2 35% Impressions: Chest X-Ray 07/17/16 07:13 IMPRESSION: Cardiomegaly. Mild central vascular congestion. Prominent main pulmonary artery, may be seen with pulmonary arterial hypertension. Bibasilar ground-glass opacities, may represent atelectasis or pneumonia. Radiographic followup recommended. Assessment & Plan - Diagnosis (1) Acute respiratory failure with hypoxia and hypercarbia Is this a current diagnosis for this admission?: YesPlan: She has been compliant with BIPAP therapy most of the time that she is in bed, but has been been placing herself on nasal cannula that is not hooked to oxygen source (2) Morbid obesity with BMI of 60.0-69.9, adult Is this a current diagnosis for this admission?: YesPlan: Counseled (3) Sleep related hypoventilation/hypoxemia in other disease Is this a current diagnosis for this admission?: YesPlan: BIPAP at hs and sleep (4) Atrial fibrillation Qualifiers: Atrial fibrillation type: paroxysmal Qualified Code(s): I48.0 - Paroxysmal atrial fibrillation Is this a current diagnosis for this admission?: YesPlan: Presently normal sinus rhythm continue current medication (5) Depression Qualifiers: Depression Type: unspecified Qualified Code(s): F32.9 - Major depressive disorder, single episode, unspecified Is this a current diagnosis for this admission?: YesPlan: Continue current medications (6) Iron deficiency anemia Qualifiers: Iron deficiency anemia type: unspecified iron deficiency Qualified Code(s): D50.9 - Iron deficiency anemia, unspecified Is this a current diagnosis for this admission?: YesPlan: Continue iron supplement (7) Lymphedema Is this a current diagnosis for this admission?: YesPlan: Patient instructed need to ambulate to assist in improvement (8) Moderate to severe pulmonary hypertension Is this a current diagnosis for this admission?: Yes (9) Diastolic congestive heart failure Qualifiers: Congestive heart failure chronicity: chronic Qualified Code(s): I50.32 - Chronic diastolic (congestive) heart failure Is this a current diagnosis for this admission?: YesPlan: Patient appears euvolemic - Time Time Spent with patient: 25-34 minutes Critical Time spent with patient: 15-24 minutes Medications reviewed and adjusted accordingly: Yes Anticipated discharge: Acute Rehab Within: when bed available
--- NOTE | 2016-07-23 11:49 | PDOC PROGRESS REPORT ---
Subjective Progress Note for:: 07/23/16 Subjective:: Lethargic barely responsive Physical Exam Vital Signs: Temp Pulse Resp BP Pulse Ox 98.1 F 66 20 147/87 H 95 07/23/16 07:11 07/23/16 07:11 07/23/16 07:11 07/23/16 07:11 07/23/16 07:11 Intake & Output 07/22/16 07/23/16 07/24/16 06:59 06:59 06:59 Intake Total 2705 1889 Output Total 1900 880 Balance 805 1009 Weight 203.3 kg 199 kg General appearance: PRESENT: no acute distress, disheveled, morbidly obese, well -developed Head exam: PRESENT: atraumatic, normocephalic Eye exam: PRESENT: conjunctiva pale, EOMI Mouth exam: PRESENT: dry mucosa, neck supple Neck exam: ABSENT: carotid bruit, JVD, lymphadenopathy, thyromegaly Respiratory exam: PRESENT: decreased breath sounds, prolonged expiratory phas, rhonchi, unlabored Cardiovascular exam: PRESENT: RRR, +S1, +S2 Pulses: PRESENT: normal radial pulses GI/Abdominal exam: PRESENT: normal bowel sounds, soft, other - Morbidly obese. ABSENT: distended, guarding, mass, organolmegaly, rebound, tenderness Rectal exam: PRESENT: deferred Gentrourinary exam: PRESENT: indwelling catheter Extremities exam: PRESENT: +1 edema Neurological exam: PRESENT: awake Skin exam: PRESENT: dry, pallor Results Laboratory Results: 07/20/16 04:41 07/21/16 11:31 07/23/16 09:30 Carbonic Acid 2.39 H HCO3/H2CO3 Ratio 18:1 ABG pH 7.37 ABG pCO2 79.4 H* ABG pO2 74.1 L ABG HCO3 45.3 H ABG O2 Saturation 93.7 L ABG Base Excess 16.8 FiO2 35% Impressions: Chest X-Ray 07/17/16 07:13 IMPRESSION: Cardiomegaly. Mild central vascular congestion. Prominent main pulmonary artery, may be seen with pulmonary arterial hypertension. Bibasilar ground-glass opacities, may represent atelectasis or pneumonia. Radiographic followup recommended. Assessment & Plan - Diagnosis (1) Morbid obesity with BMI of 60.0-69.9, adult Is this a current diagnosis for this admission?: Yes (2) Sleep related hypoventilation/hypoxemia in other disease Is this a current diagnosis for this admission?: Yes (3) Acute on chronic respiratory failure with hypercapnia Is this a current diagnosis for this admission?: Yes (4) Moderate to severe pulmonary hypertension Is this a current diagnosis for this admission?: Yes (5) Obesity hypoventilation syndrome Is this a current diagnosis for this admission?: Yes - Plan Summary Plan Summary: Patient very lethargic upon entering the room patient wearing nasal cannulas but effectively on room air as there was no flow through the nasal cannula. her noninvasive positive pressure ventilation was resumed and blood gas was drawn that showed a PCO2 to be 79. within 50 minutes she was nearing her baseline
[2016-07-23] MEDS: FUROSEMIDE 20 MG TABLET PO SCH (12:00)
--- NOTE | 2016-07-23 15:46 | PSYCHOLOGICAL NOTE ---
Psych Note - Psych Note Psych Note: Patient is very well-known to the ER patient has a history of acute on chronic respiratory failure due to hypercapnia related to the patient's body mass. Patient coming in today for initially a headache. Patient was found by first responders to be severely hypoxic on room air with SPO2 of 69. Patient requested psychological consult. Patient spoke with clinician about multiple concerns surrounding her health and the effects it has had. She disclose that she want to a facility that was "awful" that did not have the service she need (pulmonary) and she discussed her next move to a long term care phlebotomist treatment facility. She discussed her thoughts and feelings about her daughter and wanting the relationship to heal. She stated the relationship has become strained because the daughter is a caregiver. Patient discussed optimism surrounding relationship going back to just "mother /daughter." Patient discussed her thoughts on not wanting to be a burden. She states she has had difficult with her treatment because she "forgets " and feels bad when doctors tell her she is "noncompliant." Patient is alert and orientated to person place time and circumstance. Mood is euthymic with congruent affect. Patient denies suicidal and homicidal ideation. Patient denies auditory visual hallucinations; patient is not demonstrating any behavior congruent with return responding to internal stimuli. No delusions are noted. Thought processes organized and linear. Thought content is surrounds patient's health. Eye contact was well- maintained. Intellectual abilities appear to be average to high average range. Attention and concentration are good. Insight, judgment, impulse control are fair. 296.20 (F32.9) Major Depressive Disorder; Unspecified Impression\\plan: Patient is considered psychiatrically clear for discharge. Patient denies suicidal and homicidal ideation. Patient is not currently psychosis. She does not meet IVC criteria per [place] to 122C. Patient is struggling with depression surrounding her mental health diagnosis and issues affected. Dr. Powell was consulted and the care and management of this patient ; attending physician is in agreement with recommendations and disposition.
[2016-07-24] MEDS: LEVALBUTEROL HCL NEB 1.25 MG/3 ML AMPUL NEB SCH ×4 (00:03→23:52)
[2016-07-24] MEDS: ACETAMINOPHEN 325 MG TABLET PO PRN (00:30)
[2016-07-24] MEDS: FLUOXETINE HCL 20 MG CAPSULE PO SCH (09:09)
[2016-07-24] MEDS: DOCUSATE SODIUM 100 MG CAPSULE PO SCH ×2 (09:09→17:09)
[2016-07-24] MEDS: FLUTICASONE/SALMETEROL DISKUS 250-50 MCG/DOSE IH SCH ×2 (09:09→23:37)
[2016-07-24] MEDS: BUSPIRONE HCL 10 MG TABLET PO SCH ×2 (09:10→17:08)
[2016-07-24] MEDS: FUROSEMIDE 20 MG TABLET PO SCH (09:10)
[2016-07-24] MEDS: DILTIAZEM HCL 180 MG CAPSULE.CR PO SCH ×2 (09:10→23:31)
[2016-07-24] MEDS: METOPROLOL SUCCINATE 50 MG TAB.SR.24H PO SCH ×2 (09:11→23:29)
[2016-07-24] MEDS: DIGOXIN 0.125 MG TABLET PO SCH (09:12)
[2016-07-24] MEDS: MUPIROCIN 2% OINTMENT 22 GM TP SCH ×2 (09:13→17:09)
[2016-07-24] MEDS: NYSTATIN TOPICAL POWDER 15 GM TP SCH ×2 (09:14→17:09)
[2016-07-24] MEDS: APIXABAN 5 MG TABLET PO SCH ×2 (09:14→23:31)
--- NOTE | 2016-07-24 13:57 | PDOC PROGRESS REPORT ---
Subjective Progress Note for:: 07/24/16 Subjective:: Patient seen on morning rounds. She is currently on BiPAP in bed. She denies any cough, shortness of breath or nasal congestion. She denies any dyspnea at the present time. She denies any nausea, vomiting, abdominal pain or diarrhea. She is urinating fairly well after catheter removal. She did get out of bed with PT. She continues to have large amounts of lymph drainage from right lower extremity leg abrasion. No signs of infection. She states she looked at other rehab facilities online last night that have pulmonary rehab and would like referral to one. Rest of the review of systems are negative. Physical Exam Vital Signs: Temp Pulse Resp BP Pulse Ox 97.1 F 77 20 124/62 97 07/24/16 11:07 07/24/16 11:07 07/24/16 11:07 07/24/16 11:07 07/24/16 11:10 Intake & Output 07/23/16 07/24/16 07/25/16 06:59 06:59 06:59 Intake Total 1889 780 100 Output Total 880 1120 100 Balance 1009 -340 0 Weight 199 kg 198 kg General appearance: PRESENT: no acute distress, morbidly obese, well-developed, well-nourished Head exam: PRESENT: atraumatic, normocephalic Eye exam: PRESENT: conjunctiva pink, EOMI, PERRLA. ABSENT: scleral icterus Ear exam: PRESENT: normal external ear exam Mouth exam: PRESENT: moist, tongue midline Neck exam: ABSENT: carotid bruit, JVD, lymphadenopathy, thyromegaly Respiratory exam: PRESENT: clear to auscultation noel. ABSENT: rales, rhonchi, wheezes Cardiovascular exam: PRESENT: RRR. ABSENT: diastolic murmur, rubs, systolic murmur Pulses: PRESENT: normal carotid pulses, normal radial pulses Vascular exam: PRESENT: normal capillary refill GI/Abdominal exam: PRESENT: normal bowel sounds, soft. ABSENT: distended, guarding, mass, organolmegaly, rebound, tenderness Rectal exam: PRESENT: deferred Extremities exam: PRESENT: other - +3 lymphedema bilateral lower extremities Neurological exam: PRESENT: alert Psychiatric exam: PRESENT: appropriate affect, normal mood. ABSENT: homicidal ideation, suicidal ideation Skin exam: PRESENT: dry, intact, warm. ABSENT: cyanosis, rash Results Laboratory Results: 07/20/16 04:41 07/21/16 11:31 Impressions: Chest X-Ray 07/17/16 07:13 IMPRESSION: Cardiomegaly. Mild central vascular congestion. Prominent main pulmonary artery, may be seen with pulmonary arterial hypertension. Bibasilar ground-glass opacities, may represent atelectasis or pneumonia. Radiographic followup recommended. Assessment & Plan - Diagnosis (1) Acute respiratory failure with hypoxia and hypercarbia Is this a current diagnosis for this admission?: YesPlan: She has been compliant with BIPAP therapy most of the time that she is in bed. Back to baseline ABGs. Patient needs to be discharged to supervised setting for pulmonary compliance (2) Morbid obesity with BMI of 60.0-69.9, adult Is this a current diagnosis for this admission?: YesPlan: Counseled (3) Sleep related hypoventilation/hypoxemia in other disease Is this a current diagnosis for this admission?: YesPlan: BIPAP at hs and sleep (4) Atrial fibrillation Qualifiers: Atrial fibrillation type: paroxysmal Qualified Code(s): I48.0 - Paroxysmal atrial fibrillation Is this a current diagnosis for this admission?: YesPlan: Presently normal sinus rhythm continue current medication (5) Depression Qualifiers: Depression Type: unspecified Qualified Code(s): F32.9 - Major depressive disorder, single episode, unspecified Is this a current diagnosis for this admission?: YesPlan: Continue current medications. Psych evaluated patient yesterday and do not feel she is at risk for self harm (6) Iron deficiency anemia Qualifiers: Iron deficiency anemia type: unspecified iron deficiency Qualified Code(s): D50.9 - Iron deficiency anemia, unspecified Is this a current diagnosis for this admission?: YesPlan: Continue iron supplement (7) Lymphedema Is this a current diagnosis for this admission?: YesPlan: Patient instructed need to ambulate to assist in improvement (8) Moderate to severe pulmonary hypertension Is this a current diagnosis for this admission?: Yes (9) Diastolic congestive heart failure Qualifiers: Congestive heart failure chronicity: chronic Qualified Code(s): I50.32 - Chronic diastolic (congestive) heart failure Is this a current diagnosis for this admission?: YesPlan: Patient appears euvolemic - Time Time Spent with patient: 25-34 minutes Critical Time spent with patient: 15-24 minutes Medications reviewed and adjusted accordingly: Yes Anticipated discharge: Acute Rehab Within: when bed available
[2016-07-24] MEDS: LEVALBUTEROL HCL NEB 0.63 MG/3 ML AMPUL NEB PRN (20:17)
[2016-07-25 05:00] LABS: ABSOLUTE BASOPHILS # (AUTO) 0.1 10^3/uL (0.0-0.2); ABSOLUTE EOSINOPHILS # (AUTO) 0.2 10^3/uL (0.0-0.6); ABSOLUTE LYMPHOCYTES (AUTO) 1.1 10^3/uL (0.5-4.7); ABSOLUTE MONOCYTES (AUTO) 0.7 10^3/uL (0.1-1.4); BASOPHILS % (AUTO) 0.7 % (0-2); EOSINOPHILS % (AUTO) 2.4 % (0-6); HEMATOCRIT 35.5 % (36.0-47.0); HEMOGLOBIN 10.7 g/dL (12.0-15.5); HGB HCT DIFFERENCE -3.4; LYMPHOCYTES % (AUTO) 11.6 % (13-45); MEAN CORPUSCULAR HEMOGLOBIN 24.1 pg (27.0-33.4); MEAN CORPUSCULAR HGB CONC 30.1 g/dL (32.0-36.0); MEAN CORPUSCULAR VOLUME 80 fl (80-97); MONOCYTES % (AUTO) 8.2 % (3-13); RED BLOOD COUNT 4.44 10^6/uL (3.72-5.28); RED CELL DISTRIBUTION WIDTH 23.1 % (11.5-14.0); SEGMENTED NEUTROPHILS % (AUTO) 77.1 % (42-78); WHITE BLOOD COUNT 9.1 10^3/uL (4.0-10.5)
[2016-07-25 05:17] LABS: ANION GAP 10 (5-19); BLOOD UREA NITROGEN 17 mg/dL (7-20); CALCIUM 8.7 mg/dL (8.4-10.2); CARBON DIOXIDE 39 mmol/L (22-30); CHLORIDE 92 mmol/L (98-107); CREATININE RESULT 0.71 mg/dL (0.52-1.25); GLUCOSE 103 mg/dL (75-110); POTASSIUM 4.5 mmol/L (3.6-5.0); SODIUM 140.9 mmol/L (137-145)
[2016-07-25] MEDS: LEVALBUTEROL HCL NEB 1.25 MG/3 ML AMPUL NEB SCH ×3 (07:50→22:16)
[2016-07-25] MEDS: FUROSEMIDE 20 MG TABLET PO SCH (10:42)
[2016-07-25] MEDS: FLUOXETINE HCL 20 MG CAPSULE PO SCH (10:42)
[2016-07-25] MEDS: DILTIAZEM HCL 180 MG CAPSULE.CR PO SCH ×2 (10:42→23:29)
[2016-07-25] MEDS: APIXABAN 5 MG TABLET PO SCH ×2 (10:42→23:30)
[2016-07-25] MEDS: BUSPIRONE HCL 10 MG TABLET PO SCH ×2 (10:43→18:05)
[2016-07-25] MEDS: DIGOXIN 0.125 MG TABLET PO SCH (10:43)
[2016-07-25] MEDS: METOPROLOL SUCCINATE 50 MG TAB.SR.24H PO SCH ×2 (10:43→23:30)
[2016-07-25] MEDS: NYSTATIN TOPICAL POWDER 15 GM TP SCH (10:45)
[2016-07-25] MEDS: DOCUSATE SODIUM 100 MG CAPSULE PO SCH ×2 (10:46→18:04)
[2016-07-25] MEDS: MUPIROCIN 2% OINTMENT 22 GM TP SCH ×2 (10:46→18:06)
--- NOTE | 2016-07-25 11:00 | PDOC PROGRESS REPORT ---
Subjective Progress Note for:: 07/25/16 Subjective:: Patient seen on morning rounds. She is currently on BiPAP in bed. She denies any cough, shortness of breath or nasal congestion. She denies any dyspnea at the present time. She denies any nausea, vomiting, abdominal pain or diarrhea. She is urinating fairly well after catheter removal. She has been out of bed with nursing staff to change. Her exercise endurance is poor. She continues to have large amounts of lymph drainage from right lower extremity leg abrasion. No signs of infection. Continue to await rehab bed placement Rest of the review of systems are negative. Physical Exam Vital Signs: Temp Pulse Resp BP Pulse Ox 97.5 F 83 28 H 137/76 H 94 07/25/16 07:52 07/25/16 07:52 07/25/16 07:52 07/25/16 07:52 07/25/16 07:52 Intake & Output 07/24/16 07/25/16 07/26/16 06:59 06:59 06:59 Intake Total 780 1105 Output Total 1120 550 Balance -340 555 Weight 198 kg 197.6 kg General appearance: PRESENT: no acute distress, morbidly obese, well-developed, well-nourished Head exam: PRESENT: atraumatic, normocephalic Eye exam: PRESENT: conjunctiva pink, EOMI, PERRLA. ABSENT: scleral icterus Neck exam: ABSENT: carotid bruit, JVD, lymphadenopathy, thyromegaly Respiratory exam: PRESENT: clear to auscultation noel. ABSENT: rales, rhonchi, wheezes Cardiovascular exam: PRESENT: RRR. ABSENT: diastolic murmur, rubs, systolic murmur Pulses: PRESENT: normal dorsalis pedis pul Vascular exam: PRESENT: normal capillary refill GI/Abdominal exam: PRESENT: normal bowel sounds, soft. ABSENT: distended, guarding, mass, organolmegaly, rebound, tenderness Rectal exam: PRESENT: deferred Extremities exam: PRESENT: full ROM. ABSENT: calf tenderness, clubbing, pedal edema Neurological exam: PRESENT: alert, awake, oriented to person, oriented to place , oriented to time, oriented to situation, CN II-XII grossly intact. ABSENT: motor sensory deficit Psychiatric exam: PRESENT: appropriate affect, normal mood. ABSENT: homicidal ideation, suicidal ideation Skin exam: PRESENT: dry, intact, warm Results Laboratory Results: 07/25/16 04:25 07/25/16 04:25 07/25/16 07/25/16 04:25 04:25 WBC 9.1 RBC 4.44 Hgb 10.7 L Hct 35.5 L MCV 80 MCH 24.1 L MCHC 30.1 L RDW 23.1 H Plt Count 332 Seg Neutrophils % 77.1 Lymphocytes % 11.6 L Monocytes % 8.2 Eosinophils % 2.4 Basophils % 0.7 Absolute Neutrophils 7.0 Absolute Lymphocytes 1.1 Absolute Monocytes 0.7 Absolute Eosinophils 0.2 Absolute Basophils 0.1 Sodium 140.9 Potassium 4.5 Chloride 92 L Carbon Dioxide 39 H Anion Gap 10 BUN 17 Creatinine 0.71 Est GFR ( Amer) > 60 Est GFR (Non-Af Amer) > 60 Glucose 103 Calcium 8.7 Impressions: Chest X-Ray 07/17/16 07:13 IMPRESSION: Cardiomegaly. Mild central vascular congestion. Prominent main pulmonary artery, may be seen with pulmonary arterial hypertension. Bibasilar ground-glass opacities, may represent atelectasis or pneumonia. Radiographic followup recommended. Assessment & Plan - Diagnosis (1) Acute respiratory failure with hypoxia and hypercarbia Is this a current diagnosis for this admission?: YesPlan: She has been compliant with BIPAP therapy most of the time that she is in bed. Back to baseline ABGs. Patient needs to be discharged to supervised setting for pulmonary compliance (2) Morbid obesity with BMI of 60.0-69.9, adult Is this a current diagnosis for this admission?: YesPlan: Counseled (3) Sleep related hypoventilation/hypoxemia in other disease Is this a current diagnosis for this admission?: YesPlan: BIPAP at hs and sleep (4) Atrial fibrillation Qualifiers: Atrial fibrillation type: paroxysmal Qualified Code(s): I48.0 - Paroxysmal atrial fibrillation Is this a current diagnosis for this admission?: YesPlan: Presently normal sinus rhythm continue current medication (5) Depression Qualifiers: Depression Type: unspecified Qualified Code(s): F32.9 - Major depressive disorder, single episode, unspecified Is this a current diagnosis for this admission?: YesPlan: Continue current medications. Psych evaluated patient and do not feel she is at risk for self harm (6) Iron deficiency anemia Qualifiers: Iron deficiency anemia type: unspecified iron deficiency Qualified Code(s): D50.9 - Iron deficiency anemia, unspecified Is this a current diagnosis for this admission?: YesPlan: Continue iron supplement (7) Lymphedema Is this a current diagnosis for this admission?: YesPlan: Patient instructed need to ambulate to assist in improvement (8) Moderate to severe pulmonary hypertension Is this a current diagnosis for this admission?: Yes (9) Diastolic congestive heart failure Qualifiers: Congestive heart failure chronicity: chronic Qualified Code(s): I50.32 - Chronic diastolic (congestive) heart failure Is this a current diagnosis for this admission?: YesPlan: Patient appears euvolemic - Time Time Spent with patient: 25-34 minutes Critical Time spent with patient: 15-24 minutes Medications reviewed and adjusted accordingly: Yes Anticipated discharge: Home
[2016-07-25] MEDS: LEVALBUTEROL HCL NEB 0.63 MG/3 ML AMPUL NEB PRN ×2 (13:17→17:06)
[2016-07-25] MEDS: FLUTICASONE/SALMETEROL DISKUS 250-50 MCG/DOSE IH SCH ×2 (14:12→23:29)
[2016-07-25] MEDS ORDERED: FLUTICASONE/SALMETEROL DISKUS 250-50 MCG/DOSE IH ONE (14:15)
[2016-07-26] MEDS: ACETAMINOPHEN 325 MG TABLET PO PRN (03:04)
[2016-07-26] MEDS: LEVALBUTEROL HCL NEB 1.25 MG/3 ML AMPUL NEB SCH ×3 (07:45→23:51)
[2016-07-26] MEDS: DILTIAZEM HCL 180 MG CAPSULE.CR PO SCH ×2 (09:12→22:23)
[2016-07-26] MEDS: FUROSEMIDE 20 MG TABLET PO SCH (09:13)
[2016-07-26] MEDS: DIGOXIN 0.125 MG TABLET PO SCH (09:13)
[2016-07-26] MEDS: BUSPIRONE HCL 10 MG TABLET PO SCH ×2 (09:14→17:11)
[2016-07-26] MEDS: FLUOXETINE HCL 20 MG CAPSULE PO SCH (09:15)
[2016-07-26] MEDS: DOCUSATE SODIUM 100 MG CAPSULE PO SCH ×2 (09:15→17:07)
[2016-07-26] MEDS: METOPROLOL SUCCINATE 50 MG TAB.SR.24H PO SCH ×2 (09:15→22:23)
[2016-07-26] MEDS: APIXABAN 5 MG TABLET PO SCH ×2 (09:16→22:24)
[2016-07-26] MEDS: FLUTICASONE/SALMETEROL DISKUS 250-50 MCG/DOSE IH SCH ×2 (09:17→22:24)
[2016-07-26] MEDS: MUPIROCIN 2% OINTMENT 22 GM TP SCH ×2 (09:18→17:11)
--- NOTE | 2016-07-26 16:33 | PDOC PROGRESS REPORT ---
Subjective Progress Note for:: 07/26/16 Subjective:: Patient seen on morning rounds. She is currently on BiPAP in bed. She denies any cough, shortness of breath or nasal congestion. She denies any dyspnea at the present time. She denies any nausea, vomiting, abdominal pain or diarrhea. She is urinating fairly well after catheter removal. She has been out of bed with nursing staff to change. Her exercise endurance is extremely poor. She continues to have large amounts of lymph drainage from right lower extremity leg abrasion. No signs of infection. Continue to await rehab bed placement Rest of the review of systems are negative. Physical Exam Vital Signs: Temp Pulse Resp BP Pulse Ox 97.8 F 78 19 134/68 H 96 07/26/16 15:43 07/26/16 15:43 07/26/16 15:43 07/26/16 15:43 07/26/16 15:43 Intake & Output 07/25/16 07/26/16 07/27/16 06:59 06:59 06:59 Intake Total 1105 823 300 Output Total 550 200 Balance 555 623 300 Weight 197.6 kg 197.1 kg General appearance: PRESENT: no acute distress, morbidly obese, well-developed, well-nourished Head exam: PRESENT: atraumatic, normocephalic Eye exam: PRESENT: conjunctiva pink, EOMI, PERRLA. ABSENT: scleral icterus Ear exam: PRESENT: normal external ear exam Mouth exam: PRESENT: moist, tongue midline Neck exam: ABSENT: carotid bruit, JVD, lymphadenopathy, thyromegaly Respiratory exam: PRESENT: clear to auscultation noel. ABSENT: rales, rhonchi, wheezes Cardiovascular exam: PRESENT: RRR. ABSENT: diastolic murmur, rubs, systolic murmur Pulses: PRESENT: normal dorsalis pedis pul Vascular exam: PRESENT: normal capillary refill GI/Abdominal exam: PRESENT: normal bowel sounds, soft. ABSENT: distended, guarding, mass, organolmegaly, rebound, tenderness Rectal exam: PRESENT: deferred Extremities exam: PRESENT: full ROM. ABSENT: calf tenderness, clubbing, pedal edema Neurological exam: PRESENT: alert, awake, oriented to person, oriented to place , oriented to time, oriented to situation, CN II-XII grossly intact. ABSENT: motor sensory deficit Psychiatric exam: PRESENT: appropriate affect, normal mood. ABSENT: homicidal ideation, suicidal ideation Skin exam: PRESENT: dry, intact, warm. ABSENT: cyanosis, rash Results Laboratory Results: 07/25/16 04:25 07/25/16 04:25 Impressions: Chest X-Ray 07/17/16 07:13 IMPRESSION: Cardiomegaly. Mild central vascular congestion. Prominent main pulmonary artery, may be seen with pulmonary arterial hypertension. Bibasilar ground-glass opacities, may represent atelectasis or pneumonia. Radiographic followup recommended. Assessment & Plan - Diagnosis (1) Acute respiratory failure with hypoxia and hypercarbia Is this a current diagnosis for this admission?: YesPlan: She has been compliant with BIPAP therapy most of the time that she is in bed. Back to baseline ABGs. Patient needs to be discharged to supervised setting for pulmonary compliance (2) Morbid obesity with BMI of 60.0-69.9, adult Is this a current diagnosis for this admission?: YesPlan: Counseled (3) Sleep related hypoventilation/hypoxemia in other disease Is this a current diagnosis for this admission?: YesPlan: BIPAP at hs and sleep (4) Atrial fibrillation Qualifiers: Atrial fibrillation type: paroxysmal Qualified Code(s): I48.0 - Paroxysmal atrial fibrillation Is this a current diagnosis for this admission?: YesPlan: Presently normal sinus rhythm continue current medication (5) Depression Qualifiers: Depression Type: unspecified Qualified Code(s): F32.9 - Major depressive disorder, single episode, unspecified Is this a current diagnosis for this admission?: YesPlan: Continue current medications. Psych evaluated patient and do not feel she is at risk for self harm (6) Iron deficiency anemia Qualifiers: Iron deficiency anemia type: unspecified iron deficiency Qualified Code(s): D50.9 - Iron deficiency anemia, unspecified Is this a current diagnosis for this admission?: YesPlan: Continue iron supplement (7) Lymphedema Is this a current diagnosis for this admission?: YesPlan: Patient instructed need to ambulate to assist in improvement (8) Moderate to severe pulmonary hypertension Is this a current diagnosis for this admission?: Yes (9) Diastolic congestive heart failure Qualifiers: Congestive heart failure chronicity: chronic Qualified Code(s): I50.32 - Chronic diastolic (congestive) heart failure Is this a current diagnosis for this admission?: YesPlan: Patient appears euvolemic - Time Time Spent with patient: 25-34 minutes Critical Time spent with patient: 15-24 minutes Medications reviewed and adjusted accordingly: Yes Anticipated discharge: Acute Rehab Within: when bed available
[2016-07-27] MEDS: LEVALBUTEROL HCL NEB 1.25 MG/3 ML AMPUL NEB SCH ×2 (07:55→15:51)
[2016-07-27] MEDS: FUROSEMIDE 20 MG TABLET PO SCH (09:01)
[2016-07-27] MEDS: BUSPIRONE HCL 10 MG TABLET PO SCH ×2 (10:02→18:11)
[2016-07-27] MEDS: DOCUSATE SODIUM 100 MG CAPSULE PO SCH ×2 (10:03→18:10)
[2016-07-27] MEDS: FLUOXETINE HCL 20 MG CAPSULE PO SCH (10:04)
[2016-07-27] MEDS: METOPROLOL SUCCINATE 50 MG TAB.SR.24H PO SCH ×2 (10:04→22:14)
[2016-07-27] MEDS: DIGOXIN 0.125 MG TABLET PO SCH (10:05)
[2016-07-27] MEDS: DILTIAZEM HCL 180 MG CAPSULE.CR PO SCH ×2 (10:05→22:13)
[2016-07-27] MEDS: FLUTICASONE/SALMETEROL DISKUS 250-50 MCG/DOSE IH SCH ×2 (10:06→22:05)
[2016-07-27] MEDS: APIXABAN 5 MG TABLET PO SCH ×2 (10:07→22:10)
[2016-07-27] MEDS: MUPIROCIN 2% OINTMENT 22 GM TP SCH ×2 (10:10→18:10)
--- NOTE | 2016-07-27 11:14 | TRANSFER SUMMARY E ---
Transfer Summary NAME: MANYD FELIX : 1965 AGE: 51Y ADMITTED: 07/17/2016 TRANSFERRED: 07/27/2016 CODE STATUS: FULL CODE. PRIMARY CARE PROVIDER: Dr. Alicia Flynn DISCHARGE DIAGNOSES: Includes: 1. Acute on chronic hypercapnic and hypoxemic respiratory failure. 2. Sleep apnea. 3. Hypoventilation syndrome. 4. Cor pulmonale. 5. Chronic anemia. 6. Chronic atrial fibrillation. 7. Depression. 8. General debility. 9. Morbid obesity with a BMI of greater than 60. 10. Chronic lymphedema. 11. Diastolic dysfunction. DISCHARGE MEDICATIONS: Include: 1. Tylenol 650 mg p.o. every 4 hours p.r.n. 2. ProAir HFA 2 puffs inhalation every 6 hours. 3. Eliquis 5 mg p.o. every 12 hours. 4. Buspar 15 mg p.o. every 12 hours. 5. Digoxin 0.125 mg p.o. daily. 6. Diltiazem extended release 180 mg p.o. every 12 hours. 7. Colace 100 mg p.o. b.i.d. 8. Prozac 40 mg p.o. daily. 9. Advair 250 mcg/50 mcg 1 puff inhalation every 12 hours. 10. Lasix 50 mg p.o. every morning. 11. Lasix 20 mg p.o. every evening. 12. DuoNebs 1 neb every 6 hours p.r.n. 13. Toprol XL 50 mg p.o. every 12 hours. 14. Bactroban 1 application topically b.i.d. to affected areas of lower extremity. DIET: Heart Healthy. ACTIVITY: Per rehab standards. HISTORY OF PRESENT ILLNESS: The patient is a 51-year-old morbidly obese female that is well known to the hospitalist service. The patient presented to the emergency department with a chief complaint of difficulty breathing and headache. The patient arrived to the emergency department via EMS where she was found to be hypoxic according to EMS records with an oxygen saturation of 70%. The patient was not wearing her oxygen at the time this was done. Upon presentation to the emergency department the patient's oxygen status had improved; however, initial blood gas revealed a pH of 7.26, a PCO2 of 100 and bicarb of 43. The patient was placed on BiPAP and had no radiographic evidence of pneumonia. The patient had no fevers; therefore, antibiotics were deferred. Given the patient's severity of her hypercapnia and difficulty arousing, she was referred to the hospitalist for admission and management. HOSPITAL COURSE: The patient was admitted to [facility]. The patient was found to have volume overload and was diuresed and symptoms did improve with this. The patient also was maxed out on BiPAP support and the patient's cognition improved significantly with this. The patient was resumed on her home medications and the patient's CO2 balanced out at its baseline of around 80. The patient's overall cognition is back to baseline. Given the patient's multiple comorbidities, she is agreeable to rehab. The patient was just recently in rehab and had only been home a matter of a couple of weeks. At the patient's request, she was seen and evaluated by Psychology. Recommendations were not made for IVC given that the patient was not suicidal or homicidal. Recommendations were made for BuSpar. DIAGNOSTICS: Lab values are as follows. Hematology obtained on 07/25/2016: WBCs are 9.1, hemoglobin is 10.7, hematocrit is 35.5, and platelet count is 332,000. Coagulation obtained on 07/17/2016: PT is 18.2, INR is 1.42. Chemistry obtained on 07/25/2016: Sodium is 140, potassium 4.5, chloride is 92, carbon dioxide 39, BUN 17, creatinine 1.71, glucose 103, A1c is 5.1, calcium is 8.7, magnesium is 3.1, bilirubin is 0.6, AST 15, ALT is 24, alk phos 108, total protein 6.6, albumin 3, lipase is 45. CK is 20, CK MB is 0.28. Serum HCG is negative. Urinalysis obtained on 07/17/2016: Urine color yellow, appearance clear, pH 6.0, specific gravity 1.015, protein 30, glucose negative, ketones negative, occult blood small, nitrite negative, bilirubin negative, urobilinogen 2, leukocyte esterase is negative, WBCs 2, RBCs 2, casts 1, epithelial squamous cells less than 1, mucus rare, ascorbic acid is negative. Chest x-ray obtained on 07/17/2016 reveals cardiomegaly with mild central venous congestion. PHYSICAL EXAMINATION: GENERAL: On examination, the patient is a well-developed, morbidly obese 51-year-old female who is awake, alert, and oriented to person, place, time, and situation. She is verbal and conversational. She does not appear to be in any acute distress. VITAL SIGNS: Temperature is 97.4, pulse 75, respirations 19, blood pressure is 118/65, and oxygen saturation is 97% on 35% FIO2. SKIN: Pale. HEENT: BiPAP mask is in place. No JVP. EXTREMITIES: Chronic lymphedema. NEUROLOGIC: Grossly intact. PSYCHIATRIC: Appropriate affect, pleasant mood. TRANSFER PLAN: The patient will be received to rehabilitation services. Time spent on this transfer, including assessment/plan, physical examination, patient education, resource alignment, is 35 minutes. DICTATING PHYSICIAN: MELANIE MALONE NP [id number] PHY#: [id number] ID: [id number] JOB#: [id number] ACCT: [id number] cc:MELANIE MALONE NP > MTDD
--- NOTE | 2016-07-27 13:40 | PDOC PROGRESS REPORT ---
Subjective Progress Note for:: 07/27/16 Subjective:: Wearing her sleep noninvasive positive pressure ventilation Physical Exam Vital Signs: Temp Pulse Resp BP Pulse Ox 98.4 F 92 19 114/47 L 96 07/27/16 11:52 07/27/16 11:52 07/27/16 11:52 07/27/16 11:52 07/27/16 11:52 Intake & Output 07/26/16 07/27/16 07/28/16 06:59 06:59 06:59 Intake Total 823 537 400 Output Total 200 Balance 623 537 400 Weight 197.1 kg 197 kg General appearance: PRESENT: no acute distress, cooperative, disheveled, morbidly obese, well-developed Head exam: PRESENT: atraumatic, normocephalic Eye exam: PRESENT: conjunctiva pale, EOMI Mouth exam: PRESENT: dry mucosa, neck supple Neck exam: PRESENT: carotid bruit Respiratory exam: PRESENT: decreased breath sounds, prolonged expiratory phas, rhonchi, symmetrical, unlabored Cardiovascular exam: PRESENT: RRR, +S1, +S2 Pulses: PRESENT: normal radial pulses GI/Abdominal exam: PRESENT: diminished bowel sounds, soft, other - Morbidly obese Rectal exam: PRESENT: deferred Gentrourinary exam: PRESENT: indwelling catheter Extremities exam: PRESENT: +1 edema Neurological exam: PRESENT: alert, awake Skin exam: PRESENT: dry, skin tears - Distal right lower extremity, warm Results Laboratory Results: 07/25/16 04:25 07/25/16 04:25 Impressions: Chest X-Ray 07/17/16 07:13 IMPRESSION: Cardiomegaly. Mild central vascular congestion. Prominent main pulmonary artery, may be seen with pulmonary arterial hypertension. Bibasilar ground-glass opacities, may represent atelectasis or pneumonia. Radiographic followup recommended. Assessment & Plan - Diagnosis (1) Morbid obesity with BMI of 60.0-69.9, adult Is this a current diagnosis for this admission?: Yes (2) Sleep related hypoventilation/hypoxemia in other disease Is this a current diagnosis for this admission?: Yes (3) Acute on chronic respiratory failure with hypercapnia Is this a current diagnosis for this admission?: Yes (4) Moderate to severe pulmonary hypertension Is this a current diagnosis for this admission?: Yes (5) Obesity hypoventilation syndrome Is this a current diagnosis for this admission?: Yes
--- NOTE | 2016-07-27 13:42 | PDOC PROGRESS REPORT ---
Subjective Progress Note for:: 07/26/16 Subjective:: Awake Physical Exam Vital Signs: Temp Pulse Resp BP Pulse Ox 98.4 F 92 19 114/47 L 96 07/27/16 11:52 07/27/16 11:52 07/27/16 11:52 07/27/16 11:52 07/27/16 11:52 Intake & Output 07/26/16 07/27/16 07/28/16 06:59 06:59 06:59 Intake Total 823 537 400 Output Total 200 Balance 623 537 400 Weight 197.1 kg 197 kg General appearance: PRESENT: no acute distress, disheveled, morbidly obese, well -developed Head exam: PRESENT: atraumatic, normocephalic Eye exam: PRESENT: conjunctiva pale, EOMI Mouth exam: PRESENT: moist, neck supple Neck exam: ABSENT: carotid bruit, JVD, lymphadenopathy, thyromegaly Respiratory exam: PRESENT: decreased breath sounds, prolonged expiratory phas, rhonchi, symmetrical, unlabored Cardiovascular exam: PRESENT: RRR, +S1, +S2 Pulses: PRESENT: normal radial pulses GI/Abdominal exam: PRESENT: soft, other - Morbidly obese Rectal exam: PRESENT: deferred Gentrourinary exam: PRESENT: indwelling catheter Extremities exam: PRESENT: +2 edema Neurological exam: PRESENT: awake Skin exam: PRESENT: dry, warm Results Laboratory Results: 07/25/16 04:25 07/25/16 04:25 Impressions: Chest X-Ray 07/17/16 07:13 IMPRESSION: Cardiomegaly. Mild central vascular congestion. Prominent main pulmonary artery, may be seen with pulmonary arterial hypertension. Bibasilar ground-glass opacities, may represent atelectasis or pneumonia. Radiographic followup recommended. Assessment & Plan - Diagnosis (1) Morbid obesity with BMI of 60.0-69.9, adult Is this a current diagnosis for this admission?: Yes (2) Sleep related hypoventilation/hypoxemia in other disease Is this a current diagnosis for this admission?: Yes (3) Acute on chronic respiratory failure with hypercapnia Is this a current diagnosis for this admission?: Yes (4) Moderate to severe pulmonary hypertension Is this a current diagnosis for this admission?: Yes (5) Obesity hypoventilation syndrome Is this a current diagnosis for this admission?: Yes
[2016-07-27] MEDS: LEVALBUTEROL HCL NEB 0.63 MG/3 ML AMPUL NEB PRN (21:09)
[2016-07-28] MEDS: LEVALBUTEROL HCL NEB 1.25 MG/3 ML AMPUL NEB SCH ×3 (00:27→15:41)
[2016-07-28] MEDS: LEVALBUTEROL HCL NEB 0.63 MG/3 ML AMPUL NEB PRN (05:09)
[2016-07-28] MEDS ORDERED: FUROSEMIDE 40 MG TABLET PO SCH (08:00)
[2016-07-28] MEDS: APIXABAN 5 MG TABLET PO SCH (09:11)
[2016-07-28] MEDS: FLUOXETINE HCL 20 MG CAPSULE PO SCH (09:13)
[2016-07-28] MEDS: BUSPIRONE HCL 10 MG TABLET PO SCH (09:13)
[2016-07-28] MEDS: MUPIROCIN 2% OINTMENT 22 GM TP SCH (09:14)
[2016-07-28] MEDS: METOPROLOL SUCCINATE 50 MG TAB.SR.24H PO SCH (09:14)
[2016-07-28] MEDS: DILTIAZEM HCL 180 MG CAPSULE.CR PO SCH (09:14)
[2016-07-28] MEDS: DIGOXIN 0.125 MG TABLET PO SCH (09:14)
[2016-07-28] MEDS: FLUTICASONE/SALMETEROL DISKUS 250-50 MCG/DOSE IH SCH (09:14)
[2016-07-28] MEDS: DOCUSATE SODIUM 100 MG CAPSULE PO SCH (09:15)
[2016-07-28 12:17] VITALS: BP 144/94
--- NOTE | 2016-07-29 16:38 | PROGRESS NOTE E ---
Progress Note NAME: MANDY FELIX : 1965 AGE: 51Y DATE: 07/28/2016 ROOM: 313 SUBJECTIVE: I do agree with the transfer summary dictated on 07/27/2016. No changes need to be made at this time. Unfortunately, our regular transportation service has been unable to transfer the patient to her rehab facility. I have reached out to multiple carriers who are unable to do so. The patient is currently outpatient basis, is transported with home O2 to her various appointments, so I therefore have arranged a taxi service as well as portable O2 to carry the patient to her rehab place. The patient has been stable and is ready for discharge. DICTATING PHYSICIAN: MELANIE MALONE NP [id number] PHY#: [id number] ID: [id number] JOB#: [id number] ACCT: [id number] cc: >
--- NOTE | 2016-08-01 07:53 | PDOC PROGRESS REPORT ---
Subjective Progress Note for:: 07/28/16 Subjective:: Wearing her sleep noninvasive positive pressure ventilation Physical Exam Vital Signs: Temp Pulse Resp BP Pulse Ox 97.4 F 67 20 144/94 H 94 07/28/16 12:06 07/28/16 15:49 07/28/16 15:49 07/28/16 12:06 07/28/16 15:49 General appearance: PRESENT: no acute distress, cooperative, disheveled, morbidly obese, well-developed Head exam: PRESENT: atraumatic, normocephalic Eye exam: PRESENT: conjunctiva pale, EOMI Mouth exam: PRESENT: dry mucosa, neck supple Neck exam: ABSENT: carotid bruit, JVD, lymphadenopathy, thyromegaly Respiratory exam: PRESENT: decreased breath sounds, prolonged expiratory phas, rhonchi, symmetrical, unlabored Cardiovascular exam: PRESENT: RRR, +S1, +S2 Pulses: PRESENT: normal radial pulses GI/Abdominal exam: PRESENT: normal bowel sounds, soft. ABSENT: distended, guarding, mass, organolmegaly, rebound, tenderness Rectal exam: PRESENT: deferred Gentrourinary exam: PRESENT: indwelling catheter Extremities exam: PRESENT: +1 edema Neurological exam: PRESENT: alert, awake Psychiatric exam: PRESENT: normal mood Skin exam: PRESENT: dry, warm Results Laboratory Results: 07/25/16 04:25 07/25/16 04:25 Impressions: Chest X-Ray 07/17/16 07:13 IMPRESSION: Cardiomegaly. Mild central vascular congestion. Prominent main pulmonary artery, may be seen with pulmonary arterial hypertension. Bibasilar ground-glass opacities, may represent atelectasis or pneumonia. Radiographic followup recommended. Assessment & Plan - Diagnosis (1) Morbid obesity with BMI of 60.0-69.9, adult Is this a current diagnosis for this admission?: Yes (2) Sleep related hypoventilation/hypoxemia in other disease Is this a current diagnosis for this admission?: Yes (3) Acute on chronic respiratory failure with hypercapnia Is this a current diagnosis for this admission?: No (4) Moderate to severe pulmonary hypertension Is this a current diagnosis for this admission?: Yes (5) Obesity hypoventilation syndrome Is this a current diagnosis for this admission?: Yes
== END 2016-07-28 17:10 | DRG 189 ==
LOC: ER 07:08 → 3W 08:38 → UNDOADMIN 10:37 → EH 10:37 → UNDOADMIN 10:42 → EH 17:19 → 3W 17:19
PROVIDERS: ADMIT Internal Medicine; ATTEND Internal Medicine
PROC: 5A09557 Assistance with Respiratory Ventilation, Greater than 96 Consecutive Hours, Continuous Positive Airway Pressure (ICD-10-PCS; principal; 2016-07-17)
DX: J96.21 Acute and chronic respiratory failure with hypoxia (principal); Z68.44 Body mass index [BMI] 60.0-69.9, adult; E66.2 Morbid (severe) obesity with alveolar hypoventilation; I50.22 Chronic systolic (congestive) heart failure; J44.9 Chronic obstructive pulmonary disease, unspecified; J45.909 Unspecified asthma, uncomplicated; J96.22 Acute and chronic respiratory failure with hypercapnia; I27.81 Cor pulmonale (chronic); D50.9 Iron deficiency anemia, unspecified; I27.2 Other secondary pulmonary hypertension; I48.0 Paroxysmal atrial fibrillation; Z79.02 Long term (current) use of antithrombotics/antiplatelets; F32.9 Major depressive disorder, single episode, unspecified; I89.0 Lymphedema, not elsewhere classified; I25.10 Atherosclerotic heart disease of native coronary artery without angina pectoris; E78.5 Hyperlipidemia, unspecified; M19.90 Unspecified osteoarthritis, unspecified site; Z79.899 Other long term (current) drug therapy; Z88.1 Allergy status to other antibiotic agents; Z88.8 Allergy status to other drugs, medicaments and biological substances; I11.0 Hypertensive heart disease with heart failure; Z99.81 Dependence on supplemental oxygen
CPT/HCPCS: 36415; 36600; 71010; 80048; 80053; 81001; 82550; 82553; 82803; 83036; 83690; 83735; 84703; 85025; 85027; 85610; 93005; 93010; 94640; 94660; 99291; J1940; J3490; J7614